=== PATIENT | female | born 1985 | race Two or more races ===

== ENCOUNTER → 2020-02-18 12:56 | Outpatient (BNVA) | payer MEDICAID, SELFPAY | PROVIDERS: PCP Emergency Medicine; Visit Provider Surgery | DX: N63.21 Unspecified lump in the left breast, upper outer quadrant (principal); N64.4 Mastodynia | CPT/HCPCS: 99213 ==

== ENCOUNTER 2020-03-15 17:01 | Outpatient (REF) | payer MEDICAID, SELFPAY | END 2020-03-15 17:02 | disposition home or self-care (01) | LOC: HO.LAB 17:01 | PROVIDERS: PCP Emergency Medicine; Visit Provider Internal Medicine | DX: Z20.828 Contact with and (suspected) exposure to other viral communicable diseases (principal) | CPT/HCPCS: U0003 ==

== ENCOUNTER 2020-04-12 14:14 | Outpatient (REF) | payer MEDICAID, SELFPAY ==
--- NOTE | 2020-04-12 14:43 | MR_ITS ---
EXAMINATION: MR FOREARM WITHOUT AND WITH CONTRAST, RIGHT CLINICAL INFORMATION: Right forearm sarcoma with resection in 2018. Distal lump/mass. COMPARISON: Right forearm MRI dated 08/21/2018. TECHNIQUE: MRI of the right upper extremity/forearm was performed using routine sequences on a high-field scanner before and after the administration of 10 mL Gadavist IV contrast. FINDINGS: BONE: No abnormal marrow signal. No postcontrast marrow enhancement. MUSCLES/TENDONS: The visualized flexor and extensor tendons are intact. SOFT TISSUES: In the region of the previously seen postsurgical change, there is linear subcutaneous low T1/T2 signal, which appears similar to the prior examination and likely represents post surgical scarring. Focal poor fat saturation is seen more proximally. Distally in the region of the overlying skin markers, there is no significant soft tissue mass or fluid collection. No significant postcontrast enhancement. MR/MR forearm RT wo/w con IMPRESSION: Postsurgical changes redemonstrated within the ventral surface of the forearm, similar when compared to the prior examination. No new abnormal soft tissue mass, fluid collection, or enhancement.
[2020-04-12 15:07] LABS: Blood Urea Nitrogen 9 mg/dL (9-16); Estimated Glomerular Filt Rate > 60
== END 2020-04-12 14:15 | disposition home or self-care (01) ==
LOC: HO.MRI 14:14
PROVIDERS: Visit Provider Surgery
DX: C49.9 Malignant neoplasm of connective and soft tissue, unspecified (principal); C49.11 Malignant neoplasm of connective and soft tissue of right upper limb, including shoulder
CPT/HCPCS: 73220; 82565; 84520; A9585

== ENCOUNTER 2020-04-30 14:04 | Outpatient (REF) | payer MEDICAID, SELFPAY | END 2020-04-30 14:05 | disposition home or self-care (01) | LOC: HO.LAB 14:04 | PROVIDERS: Visit Provider Obstetrics & Gynecology | DX: N92.1 Excessive and frequent menstruation with irregular cycle (principal) | CPT/HCPCS: 58100; 81025; 88305 ==

== ENCOUNTER → 2020-05-04 10:30 | Outpatient (BNVA) | payer MEDICAID, SELFPAY | PROVIDERS: Visit Provider Nurse Practitioner | DX: Z76.89 Persons encountering health services in other specified circumstances (principal) ==

== ENCOUNTER 2020-05-12 10:50 | Outpatient (REF) | payer MEDICAID, SELFPAY ==
[2020-05-12 12:18] LABS: CDIFF Ag Negative (Negative); CDIFF Internal ctrl Dots and bkg OK (V); CDiff Toxin Negative (Negative)
== END 2020-05-12 10:51 | disposition home or self-care (01) ==
LOC: HO.LNP 10:50
PROVIDERS: Visit Provider Nurse Practitioner
DX: K58.2 Mixed irritable bowel syndrome (principal); R19.7 Diarrhea, unspecified
CPT/HCPCS: 87045; 87046; 87324; 87449

== ENCOUNTER → 2020-05-19 15:40 | Outpatient (BNVA) | payer MEDICAID, SELFPAY | PROVIDERS: Visit Provider Obstetrics & Gynecology | DX: Z76.89 Persons encountering health services in other specified circumstances (principal) ==

== ENCOUNTER → 2020-06-16 13:44 | Outpatient (BNVA) | payer MEDICAID, SELFPAY | PROVIDERS: Visit Provider Surgery | DX: C49.9 Malignant neoplasm of connective and soft tissue, unspecified (principal) | CPT/HCPCS: 99212 ==

== ENCOUNTER 2020-08-19 09:16 | Outpatient (REF) | payer MEDICAID, SELFPAY ==
[2020-08-19 10:02] LABS: COVID-19 Test Negative (Negative)
== END 2020-08-19 09:17 | disposition home or self-care (01) ==
LOC: HO.LAB 09:16
PROVIDERS: Visit Provider Internal Medicine
DX: Z20.822 Contact with and (suspected) exposure to COVID-19 (principal)
CPT/HCPCS: 36415; 87635; C9803

== ENCOUNTER 2020-08-19 16:44 | Emergency (ER) | payer MEDICAID, SELFPAY ==
[2020-08-19 17:40] VITALS: BP 107/61; PULSE 73; RESP 16; TEMP 37.3; O2SAT 98; BMI 35.5
--- NOTE | 2020-08-19 18:50 | ED_ITS ---
HPI - Back Pain/Injury General Chief Complaint: Back Pain/Injury Stated Complaint: Headache/Back pain Time Seen by Provider: 08/19/20 18:03 Source: patient Mode of arrival: ambulatory History of Present Illness HPI Narrative: 35-year-old female with a past medical history of arthritis, arrhythmia, carpal tunnel, fibromyalgia, hyperlipidemia, panic attacks, scoliosis, diabetes, presented to the ED complaining of right-sided neck pain radiating to mid/upper back and down right leg since yesterday. Also reports right-sided ear pain radiating to throat. 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 Denies hearing loss/drainage, difficulty swallowing, urinary incontinence/retention, numbness/tingling, CP/SOB MD elicited complaint: back pain Related Data Home Medications Medication Instructions Recorded Confirmed ascorbate calcium (vitamin C) 500 500 mg PO BID 02/18/20 06/16/20 mg tablet atorvastatin 40 mg tablet 40 mg PO DAILY 02/18/20 06/16/20 dapagliflozin 5 mg tablet 5 mg PO QAM 02/18/20 06/16/20 hydroxyzine HCl 25 mg tablet 25 mg PO Q8H PRN tab 02/18/20 06/16/20 metformin 1,000 mg tablet 1,000 mg PO BID 02/18/20 06/16/20 paroxetine HCl 40 mg tablet 40 mg PO DAILY 02/18/20 06/16/20 Previous Rx's Medication Instructions Recorded metoprolol succinate 50 mg 50 mg PO DAILY 90 Days #90 tab 03/16/20 tablet,extended release 24 hr dicyclomine 20 mg tablet 20 mg PO QID 30 Days #120 tab 05/04/20 tranexamic acid 650 mg tablet 1,300 mg PO TID #30 tab 05/19/20 acetaminophen [Tylenol Extra 500 mg PO Q6H PRN #20 tab 08/19/20 Strength] amoxicillin-pot clavulanate 1 tab PO Q12H 7 Days #14 tab 08/19/20 [Augmentin] cyclobenzaprine 5 mg PO Q8H PRN 5 Days #14 tab 08/19/20 lidocaine [Lidoderm] 1 patch TOPICAL DAILY PRN #30 ea 08/19/20 MDD remove after 12 hours naproxen 500 mg PO BID PRN 10 Days #20 tab 08/19/20 Allergies Allergy/AdvReac Type Severity Reaction Status Date / Time No Known Allergies Allergy Verified 08/19/20 17:39 [No Known Allergies*] Review of Systems Review of Systems: Constitutional: No Fever, No Chills, No Fatigue, No Malaise ENT/Mouth: No Hearing loss, + Ear Pain, No Hoarseness, + sore throat, No Rhinorrhea, No Swallowing Difficulty Eyes: No Eye Pain, No Swelling, No Redness, No Foreign Body Cardiovascular: No Chest Pain, No SOB Respiratory: No Cough, No Sputum, No Dyspnea Gastrointestinal: No Nausea, No Vomiting, No Abdominal pain Genitourinary: No irregular bleeding, No Dysuria, No Urinary Incontinence/retention, No Urgency, No Flank Pain Musculoskeletal: +back/neck pain, No Myalgias, No Joint Swelling Skin: No Skin Lesions, No rash Neuro: No Weakness, No Numbness, No Paresthesias, No Loss of Consciousness, No Dizziness, + Headache Yes all other systems are reviewed and are negative [facility] Past Medical History Attestation statement: The following information was validated with the patient. Medical History Abnormal uterine bleeding Arthritis Cardiac arrhythmia Carpal tunnel syndrome Fibromyalgia High cholesterol Myxoinflammatory fibroblastic sarcoma (~08/2017) Panic attacks Scoliosis Type 2 diabetes mellitus Surgical History H/O excision of mass Previous section S/P repair of ventral hernia (~11/2017) Family History Family History Father History of stroke History of prostate cancer Mother History of breast cancer History of diabetes mellitus History of cardiovascular disorder Social History Social History Alcohol intake: never Smoking Status: Current every day smoker Tobacco Type: Cigarette Advance Directives: No Advance Directives Information Provided: No Physical Exam Vital Signs: Vital Signs: Last Vital Signs Temp 99.1 F 08/19/20 17:40 Pulse 73 08/19/20 17:40 Resp 16 08/19/20 17:40 BP 107/61 08/19/20 17:40 Pulse Ox 98 04/08/21 17:40 Body Mass Index 35.5 Const: General: cooperative, healthy appearing, no acute distress and well developed Orientation/consciousness: patient oriented x3 Limitations: no limitations HENMT: Head: Yes normal to inspection, Yes normocephalic and Yes atraumatic Ears: hearing grossly normal bilaterally and TM abnormal bulging on the right and erythematous on the right General nose exam: Normal external nose present Face and sinus: Yes normal facial exam Mouth: Normal oral and palatal mucosa present Throat: Yes posterior oropharynx normal, Yes uvula midline, No abnormal tonsil and No peritonsillar mass Eyes: General: appearance normal, both eyes and all related structures EOM: EOMs intact bilaterally Neck: Other: No midline cervical spinous tenderness. + bilateral trapezius muscle tenderness Neck: Yes normal visual inspection, Yes no lymphadenopathy, Yes no meningeal signs, Yes trachea midline and Yes supple Resp: Effort & Inspection: normal respiratory effort and no stridor Cardio: Rate: regular rate GI: Inspection: Yes normal to inspection Palpation (GI): Soft to palpation and nontender Back/Spine/Pelvis: Other: No midline thoracic/lumbar spinous tenderness. + right-sided thoracic MSK back tenderness to palpation Skin: Rashes: no rashes Wounds: no wounds Neuro: Other: Strength intact throughout. No saddle anesthesia General: patient oriented x3, gait normal, tone normal, moves all extremities, no meningeal signs and no focal motor deficits Gait exam (Neuro): Normal gait present Motor exam (neuro): 5/5 motor strength present throughout Extrem: General: Yes normal to inspection MDM - Back Pain/Injury MDM Narrative Medical decision making narrative: On exam low-grade time 9.1, NAD/nontoxic, no midline spinous tenderness, no red flag symptoms, no saddle anesthesia. Physical exam consistent with right otitis media. Likely MSK back pain. Low concern for cauda equina/cord compression, fracture Plan: Given 1st dose of Augmentin in the ED, Naproxen/Flexeril Differential Diagnosis Differential diagnosis: Likely lumbar radiculopathy Discharge Plan Discharge Clinical Impression: Otitis media Qualifiers: Otitis media type: unspecified Chronicity: acute Qualified Code(s): H66.90 - Otitis media, unspecified, unspecified ear Back pain Qualifiers: Back pain location: thoracic back pain Chronicity: acute Back pain laterality: right Qualified Code(s): M54.6 - Pain in thoracic spine Patient Disposition: Home, Self-Care Instructions: Ear Infection (ED), Back Pain (ED) Additional Instructions: You have an inner ear infection, Augmentin is an antibiotic, take as prescribed Your back pain pain is likely musculoskeletal Flexeril is a muscle relaxer, take at night as it makes you drowsy, do not drive, drink alcohol, or operate machinery while taking it Naproxen as an anti-inflammatory / pain medication, take with food Lidoderm patches are numbing patches, apply to painful area In addition take Tylenol at home If symptoms persist or worsen, pain becomes unbearable, you developed urinary retention or incontinence, or weakness return to the ED It is important your follow up with her primary care doctor Tiene rush infecci?n del o?do interno, Augmentin es un antibi?katerin, t?chandra seg?n lo prescrito. Es probable que lorenzo dolor de espalda sea musculoesquel?katerin. Flexeril es un relajante muscular, t?chandra por la noche ya que le produce somnolencia, no conduzca, no charis alcohol ni utilice maquinaria mientras lo dolly. Naproxeno mariama medicamento antiinflamatorio / analg?sico, shama con alimentos. Los parches de Lidoderm son parches que adormecen, se aplican al ?gomez dolorida Adem?s, tome Tylenol en casa. Si los s?ntomas persisten o empeoran, el dolor se vuelve insoportable, desarroll? retenci?n urinaria o incontinencia o debilidad, regrese al servicio de urgencias Es importante lorenzo seguimiento con lorenzo m?dico de atenci?n primaria. Prescriptions: New acetaminophen [Tylenol Extra Strength] 500 mg tablet 500 mg PO Q6H PRN (Reason: pain or fever) Qty: 20 RF: 0 lidocaine [Lidoderm] 5 % adhesive patch,medicated 1 patch topical DAILY MDD remove after 12 hours PRN (Reason: pain) Qty: 30 RF : 0 naproxen 500 mg tablet 500 mg PO BID PRN (Reason: pain) 10 Days Qty: 20 RF: 0 amoxicillin-pot clavulanate [Augmentin] 875-125 mg tablet 1 tab PO Q12H 7 Days Qty: 14 RF: 0 cyclobenzaprine 5 mg tablet 5 mg PO Q8H PRN (Reason: pain (scale score 7-10)) 5 Days Qty: 14 RF: 0 No Action metoprolol succinate 50 mg tablet extended release 24 hr 50 mg PO DAILY 90 Days Qty: 90 RF: 1 dicyclomine 20 mg tablet 20 mg PO QID 30 Days Qty: 120 RF: 1 tranexamic acid [Lysteda] 650 mg tablet 1,300 mg PO TID Qty: 30 RF: 2 atorvastatin 40 mg tablet 40 mg PO DAILY RF: 0 ascorbate calcium (vitamin C) 500 mg tablet 500 mg PO BID RF: 0 paroxetine HCl [Paxil] 40 mg tablet 40 mg PO DAILY RF: 0 metformin 1,000 mg tablet 1,000 mg PO BID RF: 0 hydroxyzine HCl 25 mg tablet 25 mg PO Q8H PRN (Reason: Anxiety) RF: 0 Farxiga 5 mg tablet 5 mg PO QAM RF: 0 Referrals: [facility] [Primary Care Provider] - 2 days Print Language: Malay
[2020-08-19] MEDS: Amoxicillin/Potassium Clav 875 MG TABLET PO (19:36)
[2020-08-19] MEDS: NaPROXEN 500 MG TABLET PO (19:36)
[2020-08-19] MEDS: Cyclobenzaprine HCl 5 MG TABLET PO (19:37)
== END 2020-08-19 19:47 | disposition home or self-care (01) ==
PROVIDERS: Emergency Provider Emergency Medicine
DX: H66.91 Otitis media, unspecified, right ear (principal); M54.6 Pain in thoracic spine; R51.9 Headache, unspecified; R50.9 Fever, unspecified; E11.9 Type 2 diabetes mellitus without complications; E78.5 Hyperlipidemia, unspecified; F17.210 Nicotine dependence, cigarettes, uncomplicated; Z79.02 Long term (current) use of antithrombotics/antiplatelets; Z79.84 Long term (current) use of oral hypoglycemic drugs
CPT/HCPCS: 99283

== ENCOUNTER → 2020-09-20 10:10 | Outpatient (BNVA) | payer MEDICAID, SELFPAY | PROVIDERS: PCP Nurse Practitioner Family; Visit Provider Nurse Practitioner Family | DX: R00.2 Palpitations (principal); I49.3 Ventricular premature depolarization; E78.00 Pure hypercholesterolemia, unspecified; Z79.899 Other long term (current) drug therapy | CPT/HCPCS: 93005; 99212 ==

== ENCOUNTER → 2020-09-27 10:00 | Outpatient (BNVA) | payer MEDICAID, SELFPAY | PROVIDERS: Visit Provider Obstetrics & Gynecology | DX: N92.0 Excessive and frequent menstruation with regular cycle (principal) | CPT/HCPCS: 99212 ==

== ENCOUNTER → 2020-12-28 11:13 | Outpatient (BNVA) | payer MEDICAID, SELFPAY | PROVIDERS: Visit Provider Obstetrics & Gynecology ==

== ENCOUNTER 2021-01-21 12:10 | Outpatient (REF) | payer MEDICAID, SELFPAY ==
--- NOTE | ~2021-01-21 | US_ITS ---
EXAMINATION: US VENOUS WITH DOPPLER UPPER EXTREMITY, CLINICAL INFORMATION: Left arm pain and swelling COMPARISON: None TECHNIQUE: Ultrasound of the upper extremity is performed using compression sonography and color and pulse Doppler flow with assessment of augmentation of flow. There is also imaging and Doppler assessment of the jugular and subclavian veins. Spectral analysis with color-flow imaging is performed. FINDINGS: Respiratory variation, normal compression, and augmented flow are noted throughout the upper extremity including the axillary, brachial, cubital, and radial and ulnar veins. There is normal flow in the internal jugular and subclavian veins. There is no visible deep or superficial thrombophlebitis. If the patient's symptoms progress, a followup ultrasound in 5 -7 days might be of value to exclude proximal propagation from a nonvisualized distal arm vein. US/US venous duplex UE LT IMPRESSION: No DVT demonstrated in the left upper extremity
== END 2021-01-21 12:11 | disposition home or self-care (01) ==
LOC: HO.US 12:10
PROVIDERS: PCP Nurse Practitioner Primary Care; Visit Provider Emergency Medicine
DX: R60.0 Localized edema (principal); M79.89 Other specified soft tissue disorders
CPT/HCPCS: 93971

== ENCOUNTER 2021-02-04 14:47 | Outpatient (REF) | payer MEDICAID, SELFPAY ==
[2021-02-04 14:37] LABS: Blood Urea Nitrogen 10 mg/dL (9-16); Estimated Glomerular Filt Rate > 60
== END 2021-02-04 14:48 | disposition home or self-care (01) ==
LOC: HO.MRI 14:47
PROVIDERS: PCP Nurse Practitioner Primary Care; Visit Provider Nurse Practitioner Primary Care
DX: C49.11 Malignant neoplasm of connective and soft tissue of right upper limb, including shoulder (principal); M79.601 Pain in right arm
CPT/HCPCS: 36415; 82565; 84520

== ENCOUNTER 2021-03-01 08:47 | Outpatient (REF) | payer MEDICAID, SELFPAY ==
--- NOTE | ~2021-03-01 | MR_ITS ---
EXAMINATION: MR FOREARM WITHOUT AND WITH CONTRAST, RIGHT CLINICAL INFORMATION: Sarcoma with multiple priors 6 lesions. Recurrence. Evaluate for pain at mass site. COMPARISON: Multiple priors, most recent right arm MRI dated 04/12/2020. TECHNIQUE: MRI of the right forearm was performed using routine sequences following the IV administration of 10 mL Gadavist contrast on a high-field scanner. FINDINGS: BONE: Redemonstration of increased T2 signal within the proximal radius, unchanged when compared to the prior examination. No new abnormal marrow signal or acute osseous abnormality. MUSCLES/TENDONS: The visualized flexor and extensor muscles and tendons are intact. SOFT TISSUES: Linear low T1/T2 signal within the subcutaneous tissues of the forearm, unchanged when compared to the prior examination, consistent with postsurgical change. No new soft tissue mass, fluid collection, abnormal signal, or enhancement in this region. No evidence of local disease recurrence. MR/MR forearm RT wo/w con IMPRESSION: Postsurgical changes redemonstrated at the ventral forearm, similar when compared to the prior examination. No new soft tissue mass or enhancement.
== END 2021-03-01 08:48 | disposition home or self-care (01) ==
LOC: HO.MRI 08:47
PROVIDERS: PCP Nurse Practitioner Primary Care; Visit Provider Nurse Practitioner Primary Care
DX: C49.11 Malignant neoplasm of connective and soft tissue of right upper limb, including shoulder (principal); M79.601 Pain in right arm
CPT/HCPCS: 73220; A9585

== ENCOUNTER 2021-04-01 11:05 | Outpatient (REF) | payer MEDICAID, SELFPAY ==
[2021-04-03 14:08] LABS: CT PCR NOT DETECTED (Not Detect.); NG PCR NOT DETECTED (Not Detect.)
[2021-04-03 14:51] LABS: BV Int Neg Control Negative (Negative); BV Int Pos Control Positive (Positive)
== END 2021-04-01 11:06 | disposition home or self-care (01) ==
LOC: HO.LAB 11:05
PROVIDERS: PCP Nurse Practitioner Primary Care; Visit Provider Advanced Practice Midwife
DX: Z01.419 Encounter for gynecological examination (general) (routine) without abnormal findings (principal); B37.3 Candidiasis of vulva and vagina; E11.9 Type 2 diabetes mellitus without complications; Z20.2 Contact with and (suspected) exposure to infections with a predominantly sexual mode of transmission; Z98.51 Tubal ligation status; Z79.899 Other long term (current) drug therapy
CPT/HCPCS: 87480; 87491; 87510; 87591; 87660; 99212

== ENCOUNTER 2021-04-06 10:27 | Outpatient (REF) | payer MEDICAID, SELFPAY ==
[2021-04-06 15:46] LABS: CT PCR NOT DETECTED (Not Detect.)
[2021-04-06 15:47] LABS: NG PCR NOT DETECTED (Not Detect.)
== END 2021-04-06 10:28 | disposition home or self-care (01) ==
LOC: HO.LAB 10:27
PROVIDERS: PCP Nurse Practitioner Primary Care; Visit Provider Obstetrics & Gynecology
DX: Z01.419 Encounter for gynecological examination (general) (routine) without abnormal findings (principal); N92.0 Excessive and frequent menstruation with regular cycle; N93.9 Abnormal uterine and vaginal bleeding, unspecified
CPT/HCPCS: 87491; 87591

== ENCOUNTER 2021-04-14 12:27 | Outpatient (REF) | payer MEDICAID, SELFPAY | END 2021-04-14 12:28 | disposition home or self-care (01) | LOC: HO.LAB 12:27 | PROVIDERS: PCP Nurse Practitioner Primary Care; Visit Provider Obstetrics & Gynecology | DX: N92.0 Excessive and frequent menstruation with regular cycle (principal) | CPT/HCPCS: 58100; 88305 ==

== ENCOUNTER 2021-04-18 19:08 | Emergency (ER) | payer MEDICAID, SELFPAY ==
[2021-04-18 20:17] VITALS: BP 132/72; PULSE 85; RESP 18; TEMP 37.3; O2SAT 98; BMI 34.2
--- NOTE | 2021-04-18 21:21 | ECG_ITS ---
Test Reason : DYZZY Blood Pressure : / mmHG Vent. Rate : 071 BPM Atrial Rate : 071 BPM P-R Int : 158 ms QRS Dur : 092 ms QT Int : 408 ms P-R-T Axes : 051 008 017 degrees QTc Int : 443 ms Normal sinus rhythm Moderate voltage criteria for LVH, may be normal variant ( R in aVL , Anton product ) Borderline ECG No previous ECGs available Referred By: Leon Ham Electronically Signed By:Ovi Etienne
[2021-04-18 21:31] VITALS: BP 113/64; PULSE 77; RESP 16; TEMP 36.2; O2SAT 98
[2021-04-18 22:00] LABS: MANUAL DIFF FLAG NO
[2021-04-18 22:03] LABS: Basophils Absolute Auto 0.1 X10*3/uL (0.0-0.2); Basophils Percent Auto 0.7 % (0-2); Eosinophils Absolute Auto 0.3 X10*3/uL (0.0-0.4); Hematocrit 35.2 % (37.0-47.0); Hemoglobin 10.9 g/dl (12.0-16.0); Imm Gran Abs Auto 0.02 X10*3/uL (0.00-0.03); Imm Gran Pct Auto 0.2 % (0.0-0.4); Lymphocytes Absolute Auto 4.7 X10*3/uL (1.2-4.9); Lymphocytes Percent Auto 44.4 % (20-40); Mean Corpuscular Hemoglobin 24.5 pg (27.0-33.0); Mean Corpuscular Volume 79.3 fL (80.0-98.0); Mean Platelet Volume 10.1 fL (9.4-12.3); Monocytes Absolute Auto 0.6 X10*3/uL (0.1-1.2); Neutrophils Absolute Auto 4.8 x10*3/uL (2.0-8.3); Neutrophils Percent Auto 45.7 % (45-73); Platelet Count 434 X10*3/uL (160-400); Red Blood Count 4.44 X10*6/uL (4.20-5.50); Red Cell Distribution Width 15.3 % (11.0-16.0); White Blood Count 10.6 X10*3/uL (4.8-10.8)
[2021-04-18 22:14] LABS: Anion Gap 14 (12-20); Blood Urea Nitrogen 10 mg/dL (9-16); Carbon Dioxide 25 mmol/L (22-29); Chloride 105 mmol/L (96-108); Estimated Glomerular Filt Rate > 60; Glucose Random 120 mg/dL (60-115); Potassium 4.2 mmol/L (3.3-5.1); Sodium 140 mmol/L (135-145)
[2021-04-18 22:16] LABS: UPreg QC Valid YES; Urine Pregnancy NEGATIVE (NEGATIVE)
[2021-04-18] MEDS: Meclizine HCl 25 MG TABLET PO (22:27)
[2021-04-18 23:23] VITALS: BP 104/66; PULSE 66; RESP 18; TEMP 37.1; O2SAT 100
[2021-04-18] MEDS: LORazepam 0.5 MG TABLET PO (23:28)
--- NOTE | 2021-04-18 23:51 | ED.GENADULT ---
HPI - General Adult General Chief complaint: Neck Pain/Injury Stated complaint: Neck pressure/Dizziness Time Seen by Provider: 04/18/21 20:52 History of Present Illness HPI narrative: Patient complains of dizziness described as a feeling of the room spinning and moving when she tries to stand up and walk, there is no headache no feeling faint no chest pain no shortness of breath no palpitations She also complains of some pain in her lower neck and upper back worse with movement Related Data Home Medications Medication Instructions Recorded Confirmed ascorbate calcium (vitamin C) 500 500 mg PO BID 02/18/20 04/04/21 mg tablet dapagliflozin 5 mg tablet (Farxiga) 5 mg PO QAM 02/18/20 04/04/21 hydroxyzine HCl 25 mg tablet 25 mg PO Q8H PRN tab 02/18/20 04/04/21 metformin 1,000 mg tablet 1,000 mg PO BID 02/18/20 04/04/21 paroxetine HCl 40 mg tablet (Paxil) 40 mg PO DAILY 02/18/20 04/04/21 atorvastatin 40 mg tablet 80 mg PO DAILY tab 09/27/20 04/04/21 losartan 25 mg tablet 25 mg PO DAILY 09/27/20 04/04/21 tranexamic acid 650 mg tablet 650 mg PO BID 09/27/20 04/04/21 (Lysteda) Previous Rx's Medication Instructions Recorded dicyclomine 20 mg tablet 20 mg PO QID 30 Days #120 tab 05/04/20 acetaminophen 500 mg tablet 500 mg PO Q6H PRN #20 tab 08/19/20 (Tylenol Extra Strength) cyclobenzaprine 5 mg tablet 5 mg PO Q8H PRN 5 Days #14 tab 08/19/20 naproxen 500 mg tablet 500 mg PO BID PRN 10 Days #20 tab 08/19/20 medroxyprogesterone 10 mg tablet 10 mg PO DAILY 10 Days #30 tab 09/27/20 (Provera) clotrimazole 1 % vaginal cream 1 appful VAGINAL BEDTIME #45 g 04/01/21 metoprolol succinate 50 mg 75 mg PO DAILY 90 Days #135 tab 04/01/21 tablet,extended release 24 hr medroxyprogesterone 10 mg tablet 10 mg PO DAILY 60 Days #60 tab 04/06/21 (Provera) metronidazole 500 mg tablet 500 mg PO BID 7 Days #14 tab 04/12/21 ibuprofen 600 mg tablet 600 mg PO Q6H PRN #14 tab 04/18/21 lorazepam 0.5 mg tablet (Ativan) 0.5 mg PO TID PRN #7 tab 04/18/21 meclizine 25 mg tablet 25 mg PO TID PRN #10 tab 04/18/21 Allergies Allergy/AdvReac Type Severity Reaction Status Date / Time No Known Allergies Allergy Verified 04/14/21 12:47 [No Known Allergies*] Review of Systems Review of Systems: Positive for dizziness with a sense of the room spinning and upper back pain and lower neck pain Negatives are no fever no chills no fainting no feeling faint no headache no stiff neck no chest pain no shortness of breath no palpitations no abdominal pain no nausea or vomiting no diarrhea no loss of appetite no dysuria no confusion no skin rash Yes all other systems are reviewed and are negative PMFSH Past Medical History Source: nursing notes reviewed Medical History Abnormal uterine bleeding Arthritis Cardiac arrhythmia Carpal tunnel syndrome Fibromyalgia High cholesterol Panic attacks PVC (premature ventricular contraction) Scoliosis Type 2 diabetes mellitus Surgical History H/O excision of mass Myxoinflammatory fibroblastic sarcoma (~08/2017) Previous section S/P repair of ventral hernia (~11/2017) Tubal ligation status Family History Family History Father History of stroke History of prostate cancer Mother History of breast cancer History of diabetes mellitus History of cardiovascular disorder Social History Social History (Updated 04/14/21 @ 12:49 by Patricia Chandra CMA) Alcohol intake: former Patient Tobacco Use Status: Current everyday Tobacco user Cigarettes Per Day: 10 Years Smoked: 15 Advance Directives: No Patient : No Physical Exam Vital Signs: Vital Signs: Last Vital Signs Temp 98.8 F 04/18/21 23:23 Pulse 66 04/18/21 23:23 Resp 18 04/18/21 23:23 BP 104/66 04/18/21 23:23 Pulse Ox 100 04/18/21 23:23 BMI result Body Mass Index 34.2 General appearance is comfortable cooperative in no acute distress Head is normocephalic atraumatic The ears both ears have normal tympanic membranes with no redness, light reflex is normal in both ears, ear canals are both normal Pupils are equal round reactive to light, extraocular motions are intact there is no nystagmus The neck is supple with full range of motion The chest is clear to auscultation bilateral with symmetrical breath sounds Heart no murmur auscultated Abdomen soft nontender Extremities full range of motion x4 Neuro the gait is unsteady Speech is normal, comprehension and expression are normal Cerebellar exam she can do finger to nose easily Motor is 5/5 x4, sensation is intact and symmetrical There is no facial asymmetry Course Course Course Narrative: EKG was a normal sinus rhythm with a rate of 71, no acute ST changes no acute ischemic changes, QT was normal, intervals were normal A mild anemia was noted on her lab work which is similar to the last 1 done 2 weeks ago which was 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 by 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 for menorrhagia, she has been started on medication to control the vaginal bleeding and there is no acute change in her hemoglobin and hematocrit from 2 weeks ago test was negative electrolytes were within normal limits Patient was treated initially with meclizine 25 mg with minimal improvement and then after half an hour we gave 0.5 mg of Ativan after this she was able to walk with a steady gait and significantly improved She was discharged with the advice to follow with primary care doctor and given short course of both meclizine and Ativan Medical Decision Making Lab Data Lab results reviewed: Yes I reviewed the patient's lab results. Result diagrams: 04/18/21 21:46 04/18/21 21:46 Labs: Lab Results 04/18/21 04/18/21 04/18/21 Range/Units 21:46 21:46 22:06 WBC 10.6 (4.8-10.8) X10*3/uL RBC 4.44 (4.20-5.50) X10*6/uL Hgb 10.9 L (12.0-16.0) g/dl Hct 35.2 L (37.0-47.0) % MCV 79.3 L (80.0-98.0) fL MCH 24.5 L (27.0-33.0) pg MCHC 31.0 (31.0-35.0) g/dl RDW 15.3 (11.0-16.0) % Plt Count 434 H (160-400) X10*3/uL MPV 10.1 (9.4-12.3) fL Immature Gran % (Auto) 0.2 (0.0-0.4) % Neut % (Auto) 45.7 (45-73) % Lymph % (Auto) 44.4 H (20-40) % [place] % (Auto) 6.0 (2-11) % Eos % (Auto) 3.0 (0-4) % Baso % (Auto) 0.7 (0-2) % Lymph # (Auto) 4.7 (1.2-4.9) X10*3/uL [place] # (Auto) 0.6 (0.1-1.2) X10*3/uL Eos # (Auto) 0.3 (0.0-0.4) X10*3/uL Baso # (Auto) 0.1 (0.0-0.2) X10*3/uL Abs Immat Gran (auto) 0.02 (0.00-0.03) X10*3/uL Absolute Neuts (auto) 4.8 (2.0-8.3) x10*3/uL Absolute Nucleated RBC 0.000 (0.0-0.012) X10*3/uL Nucleated RBC % (auto) 0.0 (0.0-0.2) /100WBC Sodium 140 (135-145) mmol/L Potassium 4.2 (3.3-5.1) mmol/L Chloride 105 (96-108) mmol/L Carbon Dioxide 25 (22-29) mmol/L Anion Gap 14 (12-20) BUN 10 (9-16) mg/dL Creatinine 0.74 (0.5-1.4) mg/dL Estim Creat Clear Calc 126.0 Estimated GFR > 60 Random Glucose 120 H (60-115) mg/dL Calcium 10.0 (8.4-10.2) mg/dL Urine Test NEGATIVE (NEGATIVE) Discharge Plan Discharge Clinical Impression: Vertigo Patient Disposition: Home, Self-Care Additional Instructions: We believe you had vertigo which is loss of balance with a feeling of movement Medications seem to help but medications can only be used for a short amount of time Try the meclizine 1st and if half an hour later it has not worked you could try 0.5 mg of Ativan Follow with primary care doctor Return any time for any worse condition, or if vertigo returns and treatments are not working Prescriptions: New ibuprofen 600 mg tablet 600 mg PO Q6H PRN (Reason: pain) Qty: 14 RF: 0 meclizine 25 mg tablet 25 mg PO TID PRN (Reason: dizziness) Qty: 10 RF: 0 lorazepam [Ativan] 0.5 mg tablet 0.5 mg PO TID PRN (Reason: dizziness or vertigo) Qty: 7 RF: 0 No Action metoprolol succinate 50 mg tablet extended release 24 hr 75 mg PO DAILY 90 Days Qty: 135 RF: 1 metronidazole 500 mg tablet 500 mg PO BID 7 Days Qty: 14 RF: 0 acetaminophen [Tylenol Extra Strength] 500 mg tablet 500 mg PO Q6H PRN (Reason: pain or fever) Qty: 20 RF: 0 naproxen 500 mg tablet 500 mg PO BID PRN (Reason: pain) 10 Days Qty: 20 RF: 0 cyclobenzaprine 5 mg tablet 5 mg PO Q8H PRN (Reason: pain (scale score 7-10)) 5 Days Qty: 14 RF: 0 dicyclomine 20 mg tablet 20 mg PO QID 30 Days Qty: 120 RF: 1 losartan 25 mg tablet 25 mg PO DAILY RF: 0 tranexamic acid [Lysteda] 650 mg tablet 650 mg PO BID RF: 0 medroxyprogesterone [Provera] 10 mg tablet 10 mg PO DAILY 10 Days Qty: 30 RF: 3 ascorbate calcium (vitamin C) 500 mg tablet 500 mg PO BID RF: 0 paroxetine HCl [Paxil] 40 mg tablet 40 mg PO DAILY RF: 0 metformin 1,000 mg tablet 1,000 mg PO BID RF: 0 hydroxyzine HCl 25 mg tablet 25 mg PO Q8H PRN (Reason: Anxiety) RF: 0 Farxiga 5 mg tablet 5 mg PO QAM RF: 0 atorvastatin 40 mg tablet 80 mg PO DAILY RF: 0 medroxyprogesterone [Provera] 10 mg tablet 10 mg PO DAILY 60 Days Qty: 60 RF: 0 clotrimazole 1 % cream 1 appful vaginal BEDTIME Qty: 45 RF: 3
[2021-04-19] MEDS: Ibuprofen 600 MG TABLET PO (00:03)
== END 2021-04-19 00:07 | disposition home or self-care (01) ==
PROVIDERS: Physician Assistant Medical; Emergency Provider Emergency Medicine Emergency Medical Services; PCP Nurse Practitioner Primary Care
DX: R42 Dizziness and giddiness (principal); M54.6 Pain in thoracic spine; M54.2 Cervicalgia; E11.9 Type 2 diabetes mellitus without complications; E78.5 Hyperlipidemia, unspecified; F17.200 Nicotine dependence, unspecified, uncomplicated; Z79.02 Long term (current) use of antithrombotics/antiplatelets
CPT/HCPCS: 36415; 80048; 81025; 85025; 93005; 99284

== ENCOUNTER → 2021-04-22 13:34 | Outpatient (BNVA) | payer MEDICAID, SELFPAY | PROVIDERS: PCP Nurse Practitioner Primary Care; Visit Provider Nurse Practitioner Family | DX: I49.3 Ventricular premature depolarization (principal); R00.2 Palpitations | CPT/HCPCS: 93005; 99212 ==

== ENCOUNTER 2021-04-27 12:53 | Outpatient (REF) | payer MEDICAID, SELFPAY ==
--- NOTE | ~2021-04-27 | US_ITS ---
EXAMINATION: US PELVIS-TRANSABDOMINAL AND TRANSVAGINAL CLINICAL INFORMATION: Abnormal vaginal bleeding COMPARISON: Ultrasound of 02/19/2018 TECHNIQUE: Ultrasound of the pelvis is performed using both transabdominal and transvaginal transducers along with Doppler. Transvaginal imaging is performed due to inadequate visualization transabdominally. FINDINGS: Uterus: The anteverted uterus is normal in size and echotexture and measures 9.1 x 5.5 x 7.0 cm with an endometrial thickness of 10 mm. There is a small, 12 mm fundal fibroid. Adnexa: Right ovary measures 5.3 x 2.7 x 3.0 cm, a volume of 22.5 mL, and contains a few small follicles. Left ovary measures 3.7 x 2.0 x 2.8 cm, a volume of 10.9 mL, and contains small follicles. No free fluid is evident in the cul-de-sac. US/US pelvic and transvaginal IMPRESSION: Unremarkable transvesical and endovaginal pelvic ultrasound.
== END 2021-04-27 12:54 | disposition home or self-care (01) ==
LOC: HO.US 12:53
PROVIDERS: PCP Nurse Practitioner Primary Care; Visit Provider Obstetrics & Gynecology
DX: N93.9 Abnormal uterine and vaginal bleeding, unspecified (principal)
CPT/HCPCS: 76830; 76856

== ENCOUNTER 2021-04-29 07:56 | Outpatient (REF) | payer MEDICAID, SELFPAY ==
[2021-04-29 11:01] LABS: Glucose, Whole Blood 91 mg/dL (60-115)
== END 2021-04-29 07:57 | disposition home or self-care (01) ==
LOC: HO.MDS 07:56
PROVIDERS: PCP Nurse Practitioner Primary Care; Visit Provider Internal Medicine
DX: D50.9 Iron deficiency anemia, unspecified (principal)
CPT/HCPCS: 82947; 96365; J1200; J1750; Q0163

== ENCOUNTER → 2021-05-04 15:41 | Outpatient (BNVA) | payer MEDICAID, SELFPAY | PROVIDERS: PCP Nurse Practitioner Primary Care; Visit Provider Obstetrics & Gynecology ==

== ENCOUNTER → 2021-05-05 11:15 | Outpatient (BNVA) | payer MEDICAID, SELFPAY | PROVIDERS: PCP Nurse Practitioner Primary Care; Referring Provider Nurse Practitioner Primary Care; Visit Provider Surgery | DX: L72.0 Epidermal cyst (principal); C49.9 Malignant neoplasm of connective and soft tissue, unspecified | CPT/HCPCS: 99212 ==

== ENCOUNTER 2021-05-09 10:02 | Outpatient (REF) | payer MEDICAID, SELFPAY | END 2021-05-09 10:03 | disposition home or self-care (01) | LOC: HO.MDS 10:02 | PROVIDERS: PCP Nurse Practitioner Primary Care; Visit Provider Internal Medicine Medical Oncology | DX: D50.9 Iron deficiency anemia, unspecified (principal) | CPT/HCPCS: 96365; J1439 ==

== ENCOUNTER 2021-05-12 16:09 | Outpatient (REF) | payer MEDICAID, SELFPAY ==
--- NOTE | ~2021-05-12 | US_ITS ---
EXAMINATION: US SOFT TISSUE NECK CLINICAL INFORMATION: Epididymal cyst. 3 palpable lesions posterior/midline neck. COMPARISON: Ultrasound soft tissue neck 02/04/2019. TECHNIQUE: Linear transducer grayscale and color Doppler examination of the posterior neck at hairline. FINDINGS: In the superficial soft tissues of the posterior head/neck, there are no abnormalities. There are no cystic or solid masses. There is no lymph nodes. US/US soft tiss head and/or neck IMPRESSION: Unremarkable exam.
== END 2021-05-12 16:10 | disposition home or self-care (01) ==
LOC: HO.US 16:09
PROVIDERS: PCP Nurse Practitioner Primary Care; Visit Provider Surgery
DX: C49.9 Malignant neoplasm of connective and soft tissue, unspecified (principal); L72.0 Epidermal cyst; R19.7 Diarrhea, unspecified; K58.2 Mixed irritable bowel syndrome
CPT/HCPCS: 76536

== ENCOUNTER 2021-05-17 09:26 | Outpatient (REF) | payer MEDICAID, SELFPAY | END 2021-05-17 09:27 | disposition home or self-care (01) | LOC: HO.MDS 09:26 | PROVIDERS: PCP Nurse Practitioner Primary Care; Visit Provider Internal Medicine Medical Oncology | DX: D50.9 Iron deficiency anemia, unspecified (principal) | CPT/HCPCS: 96372; J1439 ==

== ENCOUNTER 2021-05-30 09:50 | Day surgery (SDC) | payer MEDICAID, SELFPAY ==
[2021-05-24 11:31] VITALS: BMI 34.4
[2021-05-30 10:41] VITALS: BP 123/65; PULSE 77; RESP 16; TEMP 36.4; O2SAT 98
[2021-05-30 11:05] LABS: Glucose, Whole Blood 113 mg/dL (60-115)
--- NOTE | 2021-05-30 11:19 | MHC.SHP ---
Pre-Procedural Eval Section A Date of Service: 05/30/21 The patient is an INPATIENT: No The History & Physical has been completed within 30 days and I have reviewed it.: Yes Section B Chief Complaint: Screening, Epigastric Pain Relevant Family History (Specify if Yes): Yes Relevant Social History: Tobacco Use Present Medications: see Short Stay Collaborative assessment Medical History: Significant History (Abnormal uterine bleeding Arthritis Cardiac arrhythmia Carpal tunnel syndrome Fibromyalgia High cholesterol Panic attacks PVC (premature ventricular contraction) Scoliosis Type 2 diabetes mellitus) History of Previous Operations: Relevant previous surgery/procedure and date(s) (H/O excision of mass Myxoinflammatory fibroblastic sarcoma (~08/2017) Previous section S/P repair of ventral hernia (~11/2017) Tubal ligation status) Allergies: Allergies Allergy/AdvReac Type Severity Reaction Status Date / Time dextran sulfate AdvReac Unknown Verified 05/05/21 11:55 Review of Systems Sugical H&P ROS: Negative: Constitution, Cardiovascular and Respiratory and Yes, Specify: Gastrointestinal (nausea, diarrhea) Exam Surgical H&P Exam: Normal: Heart, Normal: Lungs, Normal: Extremities and Normal: Abdomen Plan Diagnosis/Plan: Unchanged I have reviewed the history and physical and performed a pertinent physical examination on my patient. No changes have occurred unless specified.
--- NOTE | 2021-05-30 11:21 | P.BOP_ITS ---
Brief Operative Note Date of Service: 05/30/21 Pre-op diagnosis: Iron deficiency anemia, nausea, diarrhea Post-op diagnosis: other (Gastritis, colon polyps, hemorrhoids) Procedure: FLEXIBLE TRANSORAL UPPER GASTROINTESTINAL ENDOSCOPY WITH BIOPSIES AND COLONOSCOPY TILL CECUM WITH BIOPSIES AND SNARE POLYPECTOMY UPPER ENDOSCOPY Consent: Indications for the procedure and potential complications of bleeding, perforation, reaction to medications and missed diagnosis were discussed with the patient and informed consent was obtained. Instrument: Olympus GIF H 190 mid size upper endoscope Monitoring: Vital signs and clinical assessment, continuous EKG monitoring, Pulse oximetry, Carbon Dioxide monitoring and blood pressure monitoring were done throughout the procedure. Procedure: The patient was placed in the left lateral decubitis position and pre-procedure medications were administered and a bite block was placed. The endoscope was inserted into the mouth and advanced under direct vision to the third part of duodenum. A careful inspection was made as the upper endoscope was withdrawn including a retroflexed examination of the proximal stomach; Findings and interventions are described below. Findings: Larynx: Normal Esophagus: GE junction at 34 cms, small hiatal hernia 34 to 36 cms. No esophagitis or Sinclair's. Stomach: Moderate diffuse gastric erythema. Biopsies were obtained. Grade 3 flap valve on retroflexed examination of the cardia. Duodenum: Normal bulb and descending duodenum. Biopsies obtained from 3rd part of the duodenum to check for celiac sprue. Intervention: Biopsies as noted above COLONOSCOPY PROCEDURE NOTE Consent: Indications for the procedure and potential complications of bleeding, perforation, reaction to medications and missed diagnosis were discussed with the patient and informed consent was obtained. Instrument: Olympus PCF H 190 L variable stiffness pediatric colonoscope Monitoring: Vital signs and clinical assessment, intermittent blood pressure monitoring, continuous EKG monitoring, Pulse oximetry and Carbon Dioxide monitoring were done throughout the procedure. Colon withdrawl time was 25 minutes. Procedure: The patient was placed in the left lateral decubitis position and pre-procedure medications were administered. After a digital rectal examination of the ano-rectum, the video colonoscope was inserted into the rectum and advanced through the colon to the cecum. The colonoscope was slowly withdrawn in a retrograde panoramic fashion and the colon mucosa was carefully examined including a retroflexed view of the rectum. Findings and interventions are described below. Procedure Difficulty: Colon was long and tortuous and there was some loop formation. Findings: Terminal Ileum: Not evaluated Cecum: A 7-8 mm sessile polyp removed with a cold snare and polyp was not retrieved. Prominent ileocecal valve which was biopsied Ascending Colon: Normal Transverse Colon: A 4-5 mm diminutive appearing polyp removed with cold biopsy Descending Colon: Normal Sigmoid Colon: Normal Rectum: Normal Ano-rectum: Moderate internal hemorrhoids and julissa-anal skin tags Colon preparation: Good after copious irrigation Impression and Post Procedure Diagnosis: Endoscopy Findings: ESOPHAGUS: GE junction at 34 cms, small hiatal hernia 34 to 36 cms. STOMACH: Gastritis DUODENUM: Normal - biopsied to check for celiac sprue Colonoscopy Findings: Two small polyps removed. Prominent ileocecal valve - biopsied Random biopsies were obtained from the colon to check for microscopic colitis Moderate hemorrhoids on retroflexed exam and julissa-anal skin tags. Plan: Await pathology results Patient has an appointment on 06/23/21 in the GI Clinic with Roddy Irvin M.D.. Repeat Colonoscopy interval based on path results - in 5 years if polyps are adenomatous and due to positive family history of colon polyps. (Adult colonoscope for future colonoscopies) Above findings were reviewed with the patient and Gastritis, colon polyps and Hemorrhoids handouts were given in the discharge area Surgeon: Roddy Irvin MD Anesthesia: MAC (Dr Price and Dr Schafer) Was an Finished Cloth Checker used for this Procedure?: No Finished Cloth Checker: Marques Kee Estimated blood loss (mL): 0 Pathology: other ( A- SMALL BOWEL BXS R/O CELIAC B- GASTRIC ANTRUM BXS R/O H. PYLORI C- ILEO CECAL VALVE R/O POLYP D- RANDOM COLON BXS R/O MICROSCOPIC COLITIS E- TRANSVERSE COLON POLYP) Condition: stable Disposition: PACU
--- NOTE | 2021-05-30 11:26 | HO.ANESPROP2 ---
[facility] Active Problems Active Problems: All Active Problems (Updated 05/24/21 @ 11:25 by Alize Callejas RN) Left breast lump (Acute) Lactose intolerance (Acute) Hemorrhoids (Acute) Mixed irritable bowel syndrome (Acute) Diarrhea (Acute) Menorrhagia (Acute) Urine incontinence (Acute) Anemia (Chronic) Palpitation (Acute) Yeast infection of the vagina (Acute) Well woman exam (Acute) Epidermal inclusion cyst (Acute) PVC (premature ventricular contraction) (Acute) Myxoinflammatory fibroblastic sarcoma (Acute ~08/2017) Past Medical History Medical History Abnormal uterine bleeding Arthritis Cardiac arrhythmia Carpal tunnel syndrome Fibromyalgia High cholesterol Panic attacks PVC (premature ventricular contraction) Scoliosis Type 2 diabetes mellitus Functional capacity: independent ambulation Patient : No Family History Family History Father History of stroke History of prostate cancer Mother History of breast cancer History of diabetes mellitus History of cardiovascular disorder Family history of problems with anesthesia: No Surgical History Surgical History H/O excision of mass H/O excision of mass Myxoinflammatory fibroblastic sarcoma (~08/2017) Previous section S/P repair of ventral hernia (~11/2017) Tubal ligation status History of Problems with Anesthesia: No Social History Social History Alcohol intake: former Patient Tobacco Use Status: Current everyday Tobacco user Tobacco use type: Cigarette Cigarettes Per Day: 10 Years Smoked: 15 Advance Directives: No Advance Directives Information Provided: Yes Advance Directives on File: No Meds Allergies Allergy/AdvReac Type Severity Reaction Status Date / Time dextran sulfate AdvReac Unknown Verified 05/05/21 11:55 Home Medications Medication Instructions Recorded Confirmed Last Taken Type ascorbate calcium (vitamin C) 500 500 mg PO BID 02/18/20 05/24/21 Unknown History mg tablet dapagliflozin 5 mg tablet (Farxiga) 5 mg PO QAM 02/18/20 05/24/21 Unknown History hydroxyzine HCl 25 mg tablet 25 mg PO Q8H PRN tab 02/18/20 05/24/21 Unknown History metformin 1,000 mg tablet 1,000 mg PO BID 02/18/20 05/24/21 Unknown History paroxetine HCl 40 mg tablet (Paxil) 40 mg PO DAILY 02/18/20 05/24/21 Unknown History atorvastatin 40 mg tablet 80 mg PO DAILY tab 09/27/20 05/24/21 Unknown History losartan 25 mg tablet 25 mg PO DAILY 09/27/20 05/24/21 Unknown History tranexamic acid 650 mg tablet 650 mg PO BID 09/27/20 05/24/21 Unknown History (Lysteda) Exam Exam Date and Time: May 30, 2021 1126 Height,Weight and Vital Signs: Height 5 ft 7 in Weight 99.6 kg Last Vital Signs Temp 97.6 F 05/30/21 10:41 Pulse 77 05/30/21 10:41 Resp 16 05/30/21 10:41 BP 123/65 05/30/21 10:41 Pulse Ox 98 05/30/21 10:41 Pertinent Lab Results Pertinent Lab Results: Laboratory Tests 05/30/21 10:59 POC Glucose 113 Airway Mallampati Class: III TM Dist: >3cm Neck ROM: Full Heart: RRR Lungs: CTA Assessment and Plan Final Anesthetic Review Family History of Problems with Anesthesia: No History of Problems with Anesthesia: No ASA Class: III Final Preanesthetic Review: No Changes in Pt Med Stat, Meds/Allgs Chart Reviewed, Consent Obtained/Reviewed and Anes Risks/Benef Reviewed Patient Risk: Intermediate Procedure Risk: Low Anesthetic Plan Anesthetic Plan: MAC: Disposition: Standard PACU
--- NOTE | 2021-05-30 11:32 | W.PM.OPN ---
Operative Note Operative Note Date of Service: 05/30/21 Narrative: Pre-op diagnosis:?Iron deficiency anemia, nausea, diarrhea Post-op diagnosis:?other (Gastritis, colon polyps, hemorrhoids) Procedure:? FLEXIBLE TRANSORAL UPPER GASTROINTESTINAL ENDOSCOPY WITH BIOPSIES AND COLONOSCOPY TILL CECUM WITH BIOPSIES AND SNARE POLYPECTOMY UPPER ENDOSCOPY Consent:?Indications for the procedure and potential complications of bleeding, perforation, reaction to medications and missed diagnosis were discussed with the patient and informed consent was obtained. Instrument:?Olympus GIF H 190 mid size upper endoscope Monitoring: Vital signs and clinical assessment, continuous EKG monitoring, Pulse oximetry, Carbon Dioxide monitoring and blood pressure monitoring were done throughout the procedure. Procedure:?The patient was placed in the left lateral decubitis position and pre-procedure medications were administered and a bite block was placed. The endoscope was inserted into the mouth and advanced under direct vision to the third part of duodenum. A careful inspection was made as the upper endoscope was withdrawn including a retroflexed examination of the proximal stomach; Findings and interventions are described below. Findings: Larynx:? Normal Esophagus:?GE junction at 34 cms, small hiatal hernia 34 to 36 cms. No esophagitis or Sinclair's. Stomach:?Moderate diffuse gastric erythema. Biopsies were obtained. Grade 3 flap valve on retroflexed examination of the cardia. Duodenum:?Normal bulb and descending duodenum.? Biopsies obtained from 3rd part of the duodenum to check for celiac sprue. Intervention:?Biopsies as noted above COLONOSCOPY PROCEDURE NOTE Consent:?Indications for the procedure and potential complications of bleeding, perforation, reaction to medications and missed diagnosis were discussed with the patient and informed consent was obtained. Instrument:?Olympus PCF H 190 L variable stiffness pediatric colonoscope Monitoring:?Vital signs and clinical assessment, intermittent blood pressure monitoring, continuous EKG monitoring, Pulse oximetry and Carbon Dioxide monitoring were done throughout the procedure. Colon withdrawl time was 25 minutes. Procedure:?The patient was placed in the left lateral decubitis position and pre-procedure medications were administered. After a digital rectal examination of the ano-rectum, the video colonoscope was inserted into the rectum and advanced through the colon to the cecum. The colonoscope was slowly withdrawn in a retrograde panoramic fashion and the colon mucosa was carefully examined including a retroflexed view of the rectum. Findings and interventions are described below. Procedure Difficulty:??Colon was long and tortuous and there was some loop formation. Findings: Terminal Ileum: Not evaluated Cecum:? A 7-8 mm sessile polyp removed with a cold snare and polyp was not retrieved. Prominent ileocecal valve which was biopsied Ascending Colon:??Normal Transverse Colon:??A 4-5 mm diminutive appearing polyp removed with cold biopsy Descending Colon:? Normal Sigmoid Colon:??Normal Rectum:??Normal Ano-rectum:??Moderate internal hemorrhoids and julissa-anal skin tags Colon preparation:? Good after copious irrigation Impression and Post Procedure Diagnosis: Endoscopy Findings: ESOPHAGUS:?GE junction at 34 cms, small hiatal hernia 34 to 36 cms. STOMACH: Gastritis DUODENUM: Normal - biopsied to check for celiac sprue Colonoscopy Findings: Two small polyps removed. Prominent ileocecal valve - biopsied Random biopsies were obtained from the colon to check for microscopic colitis Moderate hemorrhoids on retroflexed exam and julissa-anal skin tags. Plan: Await pathology results Patient has an appointment on 06/23/21 in the GI Clinic with Roddy Irvin M.D.. Repeat Colonoscopy interval based on path results - in 5 years if polyps are adenomatous and due to positive family history of colon polyps. (Adult colonoscope for future colonoscopies) Above findings were reviewed with the patient and Gastritis, colon polyps and? Hemorrhoids handouts were given in the discharge area Surgeon:?Roddy Irvin MD Anesthesia:?MAC (Dr Price and Dr Schafer) Was an Designer/Writer used for this Procedure?:?No Designer/Writer:?Marques Kee Estimated blood loss (mL):?0 Pathology:?other ( A- SMALL BOWEL BXS? R/O CELIAC? B- GASTRIC ANTRUM BXS? R/O H. PYLORI? C- ILEO CECAL VALVE? R/O POLYP? D- RANDOM COLON BXS? R/O MICROSCOPIC COLITIS? E- TRANSVERSE COLON POLYP) Condition:?stable Disposition:?PACU
[2021-05-30 12:31] VITALS: BP 105/64; PULSE 89; RESP 16; TEMP 37.2; O2SAT 96
[2021-05-30 12:46] VITALS: BP 119/89; PULSE 74; RESP 18; O2SAT 96
[2021-05-30 13:01] VITALS: BP 125/89; PULSE 68; RESP 18; TEMP 36.8; O2SAT 97
--- NOTE | 2021-05-30 13:13 | HO.POSTANES ---
Post Anesthesia Evaluation Post Anesthesia Evaluation Vital Signs: Vital Signs Temp Pulse Resp BP Pulse Ox 05/30/21 12:31 98.9 F 89 16 105/64 96 05/30/21 10:41 97.6 F 77 16 123/65 98 Anesthesia: Monitored Mental Status: Awake Pain Control: Satisfactory Nausea/Vomiting: None Hydration: Adequate Anesthesia-Related Issues: No Anes. Related Issues
== END 2021-05-30 13:42 | disposition home or self-care (01) ==
PROVIDERS: PCP Nurse Practitioner Primary Care; Visit Provider Internal Medicine Gastroenterology
PROC: (CPT 45385; principal; 2021-05-30 12:00)
DX: D50.9 Iron deficiency anemia, unspecified (principal); N92.0 Excessive and frequent menstruation with regular cycle; Z83.71 Family history of colonic polyps; K63.5 Polyp of colon; K64.8 Other hemorrhoids; K64.4 Residual hemorrhoidal skin tags; R10.13 Epigastric pain; E73.9 Lactose intolerance, unspecified; K29.50 Unspecified chronic gastritis without bleeding; K21.9 Gastro-esophageal reflux disease without esophagitis; K44.9 Diaphragmatic hernia without obstruction or gangrene; G47.33 Obstructive sleep apnea (adult) (pediatric); R53.82 Chronic fatigue, unspecified; M79.7 Fibromyalgia; E78.00 Pure hypercholesterolemia, unspecified; E11.9 Type 2 diabetes mellitus without complications; Z79.84 Long term (current) use of oral hypoglycemic drugs; Z79.899 Other long term (current) drug therapy; Z88.8 Allergy status to other drugs, medicaments and biological substances; Z98.51 Tubal ligation status; F17.210 Nicotine dependence, cigarettes, uncomplicated
CPT/HCPCS: 45385; 45380; 43239; 82947; 88305; 88342; J2405

== ENCOUNTER → 2021-06-23 08:41 | Outpatient (BNVA) | payer MEDICAID, SELFPAY | PROVIDERS: PCP Nurse Practitioner Primary Care; Referring Provider Nurse Practitioner Primary Care; Visit Provider Internal Medicine Gastroenterology | DX: D50.9 Iron deficiency anemia, unspecified (principal); K58.2 Mixed irritable bowel syndrome; K64.9 Unspecified hemorrhoids; R19.7 Diarrhea, unspecified; R10.9 Unspecified abdominal pain | CPT/HCPCS: 99212 ==

== ENCOUNTER 2021-07-14 09:21 | Outpatient (REF) | payer MEDICAID, SELFPAY ==
--- NOTE | ~2021-07-14 | XR_ITS ---
EXAMINATION: XR thoracic spine 2V, XR cervical spine min 6V CLINICAL INFORMATION: Reason for Exam LUMBAGO WITH SCIATICA COMPARISON: MRI cervical spine dated 07/17/2018 TECHNIQUE: 3 views of the thoracic spine and 5 views of the cervical spine FINDINGS: No acute fracture or traumatic malalignment. Vertebral body heights maintained. Oblique views demonstrate osseous neural foraminal encroachment within the cervical spine. No significant degenerative changes evident. Paraspinal soft tissues unremarkable. XR/XR cervical spine min 6V IMPRESSION: No acute findings. No significant degenerative changes. No significant osseous neural foraminal encroachment evident within the cervical spine from a radiographic standpoint. MRI of the cervical spine would be more sensitive and specific.
--- NOTE | ~2021-07-14 | US_ITS ---
EXAMINATION: US ABDOMEN COMPLETE CLINICAL INFORMATION: Abdominal pain COMPARISON: CT abdomen/pelvis dated 09/02/2018 TECHNIQUE: Real-time imaging of the abdominal viscera. FINDINGS: PANCREAS: Normal. ABDOMINAL AORTA: The proximal, mid, and distal segments are normal in caliber. INFERIOR VENA CAVA: Visualized portions are normal. LIVER: The liver contour is normal. There is diffuse increased liver parenchymal echogenicity, consistent with hepatic steatosis. No focal hepatic lesion. There is no intrahepatic biliary duct dilatation seen. GALLBLADDER: Normal. The gallbladder is physiologically distended without evidence of stones, sludge, polyps, wall thickening or pericholecystic fluid. COMMON BILE DUCT: Normal in caliber measuring 0.3 cm in diameter. RIGHT KIDNEY: Normal. No hydronephrosis. No renal calculi or focal parenchymal lesions. The kidney measures 14.3 cm in maximum dimension. LEFT KIDNEY: Normal. No hydronephrosis. No renal calculi or focal parenchymal lesions. The kidney measures 14.3 cm in maximum dimension. SPLEEN: Normal. The spleen measures 8.9 cm in maximum dimension. FREE FLUID: None. US/US abdomen complete IMPRESSION: No acute findings. Hepatic steatosis.
--- NOTE | ~2021-07-14 | XR_ITS ---
EXAMINATION: XR thoracic spine 2V, XR cervical spine min 6V CLINICAL INFORMATION: Reason for Exam LUMBAGO WITH SCIATICA COMPARISON: MRI cervical spine dated 07/17/2018 TECHNIQUE: 3 views of the thoracic spine and 5 views of the cervical spine FINDINGS: No acute fracture or traumatic malalignment. Vertebral body heights maintained. Oblique views demonstrate osseous neural foraminal encroachment within the cervical spine. No significant degenerative changes evident. Paraspinal soft tissues unremarkable. XR/XR thoracic spine 2V IMPRESSION: No acute findings. No significant degenerative changes. No significant osseous neural foraminal encroachment evident within the cervical spine from a radiographic standpoint. MRI of the cervical spine would be more sensitive and specific.
--- NOTE | ~2021-07-14 | XR_ITS ---
EXAMINATION: XR LUMBOSACRAL SPINE CLINICAL INFORMATION: Pain COMPARISON: None TECHNIQUE: Three views of the lumbosacral spine. FINDINGS: The vertebral bodies and posterior elements are normal. The disc spaces are preserved and the vertebral alignment is normal. The paraspinal soft tissues are normal. XR/XR lumbar spine 2-3V IMPRESSION: No significant osseous changes. Bone alignments are satisfactory.
[2021-07-14 10:38] LABS: MANUAL DIFF FLAG NO
[2021-07-14 10:43] LABS: Basophils Percent Auto 0.6 % (0-2); Eosinophils Absolute Auto 0.3 X10*3/uL (0.0-0.4); Eosinophils Percent Auto 4.5 % (0-4); Hematocrit 40.3 % (37.0-47.0); Imm Gran Abs Auto 0.01 X10*3/uL (0.00-0.03); Imm Gran Pct Auto 0.1 % (0.0-0.4); Lymphocytes Absolute Auto 2.6 X10*3/uL (1.2-4.9); Lymphocytes Percent Auto 36.7 % (20-40); Mean Corpuscular HGB Conc 32.3 g/dl (31.0-35.0); Mean Corpuscular Hemoglobin 26.6 pg (27.0-33.0); Mean Corpuscular Volume 82.6 fL (80.0-98.0); Mean Platelet Volume 9.9 fL (9.4-12.3); Monocytes Absolute Auto 0.4 X10*3/uL (0.1-1.2); Monocytes Percent Auto 5.8 % (2-11); Neutrophils Absolute Auto 3.8 x10*3/uL (2.0-8.3); Neutrophils Percent Auto 52.3 % (45-73); Platelet Count 320 X10*3/uL (160-400); Red Blood Count 4.88 X10*6/uL (4.20-5.50); Red Cell Distribution Width 16.9 % (11.0-16.0); White Blood Count 7.2 X10*3/uL (4.8-10.8)
[2021-07-14 11:29] LABS: Alanine Aminotransferase 30 U/L (0-31); Albumin Level 4.9 g/dL (3.5-5.0); Alkaline Phosphatase 35 U/L (39-117); Aspartate Amino Transferase 24 U/L (5-31); Bilirubin Direct < 0.2 mg/dL (0.0-0.5); Bilirubin Total 0.4 mg/dL (0.0-1.0); C Reactive Protein 0.52 mg/dL (< or = 0.50); Lipase 31 U/L (8-78); Total Protein 7.4 g/dL (6.5-8.0)
[2021-07-14 11:53] LABS: Ferritin 125 ng/mL (10-122)
== END 2021-07-14 09:22 | disposition home or self-care (01) ==
LOC: HO.US 09:21
PROVIDERS: Absent Provider Registered Nurse; PCP Registered Nurse; Visit Provider Internal Medicine Gastroenterology
DX: R10.9 Unspecified abdominal pain (principal); M47.22 Other spondylosis with radiculopathy, cervical region; M54.41 Lumbago with sciatica, right side; M54.42 Lumbago with sciatica, left side; M54.6 Pain in thoracic spine
CPT/HCPCS: 36415; 72052; 72070; 72100; 76700; 80076; 82728; 83690; 85025; 86140

== ENCOUNTER → 2021-08-08 14:17 | Outpatient (BNVA) | payer MEDICAID, SELFPAY | PROVIDERS: Visit Provider Obstetrics & Gynecology | DX: N93.9 Abnormal uterine and vaginal bleeding, unspecified (principal) | CPT/HCPCS: 99212 ==

== ENCOUNTER 2021-10-10 04:32 | Emergency (ER) | payer MEDICAID, SELFPAY ==
--- NOTE | ~2021-10-10 | XR_ITS ---
EXAMINATION: XR CHEST CLINICAL INFORMATION: Cough, shortness of breath COMPARISON: None TECHNIQUE: Frontal view of the chest was obtained. FINDINGS: The lungs are clear with no focal consolidation. No evidence of pneumothorax, pulmonary edema, or pleural effusions. The cardiomediastinal silhouette is unremarkable. No acute osseous findings. XR/XR chest 1V IMPRESSION: No acute cardiopulmonary findings.
[2021-10-10 04:40] VITALS: BP 136/93; PULSE 63; RESP 16; TEMP 35.8; O2SAT 98; BMI 34.4
[2021-10-10 05:01] LABS: Strep A Nucleic Acid Negative (Negative)
[2021-10-10 05:08] LABS: COVID-19 Test Negative (Negative); IDNOW Serial# 16C4AD1C; Influenza A Negative (Negative); Influenza B2 Negative (Negative)
--- NOTE | 2021-10-10 06:34 | ED_ITS ---
HPI - URI/Sore Throat General Chief Complaint: Upper Respiratory Symptoms Stated Complaint: sore throat, swollen, difficulty breathing Time Seen by Provider: 10/10/21 06:34 Source: patient Mode of arrival: ambulatory Limitations: no limitations History of Present Illness MD elicited complaint: cough, sore throat and rhinorrhea Onset (ago): day(s) (3) Consistency: constant Severity: moderate Description of mucous: clear Able to tolerate fluids by mouth: Yes Exacerbating factors: swallowing Relieving factors: nothing Context: sick contacts (child with similar cold) Associated symptoms: chills, rhinorrhea, sore throat and cough Treatments prior to arrival: none Related Data Home Medications Medication Instructions Recorded Confirmed ascorbate calcium (vitamin C) 500 500 mg PO BID 02/18/20 06/23/21 mg tablet dapagliflozin 5 mg tablet (Farxiga) 5 mg PO QAM 02/18/20 06/23/21 hydroxyzine HCl 25 mg tablet 25 mg PO Q8H PRN tab 02/18/20 06/23/21 metformin 1,000 mg tablet 1,000 mg PO BID 02/18/20 06/23/21 paroxetine HCl 40 mg tablet (Paxil) 40 mg PO DAILY 02/18/20 06/23/21 atorvastatin 40 mg tablet 80 mg PO DAILY tab 09/27/20 06/23/21 losartan 25 mg tablet 25 mg PO DAILY 09/27/20 06/23/21 Previous Rx's Medication Instructions Recorded dicyclomine 20 mg tablet 20 mg PO QID 30 Days #120 tab 05/04/20 acetaminophen 500 mg tablet 500 mg PO Q6H PRN #20 tab 08/19/20 (Tylenol Extra Strength) cyclobenzaprine 5 mg tablet 5 mg PO Q8H PRN 5 Days #14 tab 08/19/20 naproxen 500 mg tablet 500 mg PO BID PRN 10 Days #20 tab 08/19/20 medroxyprogesterone 10 mg tablet 10 mg PO DAILY 10 Days #30 tab 09/27/20 (Provera) metoprolol succinate 50 mg 75 mg PO DAILY 90 Days #135 tab 04/01/21 tablet,extended release 24 hr metronidazole 500 mg tablet 500 mg PO BID 7 Days #14 tab 04/12/21 ibuprofen 600 mg tablet 600 mg PO Q6H PRN #14 tab 04/18/21 lorazepam 0.5 mg tablet (Ativan) 0.5 mg PO TID PRN #7 tab 04/18/21 meclizine 25 mg tablet 25 mg PO TID PRN #10 tab 04/18/21 famotidine 20 mg tablet 20 mg PO BID 30 Days #60 tab 06/23/21 medroxyprogesterone 10 mg tablet 10 mg PO DAILY 60 Days #60 tab 08/08/21 (Provera) amoxicillin 500 mg tablet 500 mg PO BID 10 Days #20 tab 10/10/21 Allergies Allergy/AdvReac Type Severity Reaction Status Date / Time dextran sulfate AdvReac Unknown Verified 10/10/21 04:44 Review of Systems Review of Systems: Constitutional : no Fever, positive Chills, positive fatigue, positive Malaise ENT/Mouth : positive sore throat, positive runny nose Eyes: No Discharge Cardiovascular : No Chest Pain, No SOB Respiratory : pos Cough, No Sputum Gastrointestinal : No Nausea, No Vomiting, No Diarrhea Genitourinary : No Dysuria, No Urinary Frequency Musculoskeletal : positive Myalgia Skin : No rash Neuro : No Headache PMFSH Past Medical History Attestation statement: The following information was validated with the patient. Medical History Abnormal uterine bleeding Arthritis Cardiac arrhythmia Carpal tunnel syndrome Fibromyalgia High cholesterol Panic attacks PVC (premature ventricular contraction) Scoliosis Type 2 diabetes mellitus Surgical History H/O excision of mass H/O excision of mass Hx of colonoscopy Hx of esophagogastroduodenoscopy Myxoinflammatory fibroblastic sarcoma (~08/2017) Previous section S/P repair of ventral hernia (~11/2017) Tubal ligation status Family History Family History Father History of stroke History of prostate cancer Mother History of breast cancer History of diabetes mellitus History of cardiovascular disorder Social History Social History Alcohol intake: former Patient Tobacco Use Status: Current everyday Tobacco user Tobacco use type: Cigarette Cigarettes Per Day: 10 Years Smoked: 15 Advance Directives: No Physical Exam Vital Signs: Vital Signs: Last Vital Signs Temp 96.5 F L 10/10/21 04:40 Pulse 63 10/10/21 04:40 Resp 16 10/10/21 04:40 BP 136/93 H 10/10/21 04:40 Pulse Ox 98 10/10/21 04:40 BMI result Body Mass Index 34.4 Appearance: Alert. Oriented X3. No acute distress. not toxic appearing Eyes: Pupils equal, round and reactive to light. ENT: Pharynx moderate generalized erythema, normal voice, tolerating secretions, white patches on both tonsils uvula midline Neck: Normal inspection. Neck supple. CVS: Normal heart rate and rhythm. Pulses normal. Respiratory: No respiratory distress. Breath sounds normal. Abdomen: Soft and nontender. Skin: Skin warm and dry. Normal skin color. Normal skin turgor. Extremities: No lower extremity edema. No calf ttp Neuro: Oriented X 3. No motor deficit. No sensory deficit. MDM - URI/Sore Throat MDM Narrative Medical decision making narrative: 36 yo female with hx of fibromyalgia, anemia, asthma vaccinated for COVID here with c/o sore throat x 3 days - her throat is red swollen with white patches consistent with strep throat - at this time will start on amoxcillin. There are no signs of deeper space infection and she is not toxic at this time. Other swabs and CXR from triage are negative. Lab Data Labs: Lab Results 10/10/21 10/10/21 10/10/21 Range/Units 04:47 04:47 04:47 COVID-19 ([facility]) Negative (Negative) COVID-19 Clin Com See Note Influenza Type A ([facility]) Negative (Negative) Influenza Type B ([facility]) Negative (Negative) Influenza A & B Note See Note S. pyogenes GrpA [facility] Negative (Negative) Discharge Plan Discharge Clinical Impression: Acute streptococcal pharyngitis Patient Disposition: Home, Self-Care Instructions: Strep Throat (ED) Additional Instructions: return to ED for any worsening symptoms or concerns Prescriptions: New amoxicillin 500 mg tablet 500 mg PO BID 10 Days Qty: 20 0RF No Action metoprolol succinate 50 mg tablet extended release 24 hr 75 mg PO DAILY 90 Days Qty: 135 1RF metronidazole 500 mg tablet 500 mg PO BID 7 Days Qty: 14 0RF Rx Instructions: Take with food, Avoid alcohol and vinegar products acetaminophen [Tylenol Extra Strength] 500 mg tablet 500 mg PO Q6H PRN (Reason: pain or fever) Qty: 20 0RF naproxen 500 mg tablet 500 mg PO BID PRN (Reason: pain) 10 Days Qty: 20 0RF cyclobenzaprine 5 mg tablet 5 mg PO Q8H PRN (Reason: pain (scale score 7-10)) 5 Days Qty: 14 0RF ibuprofen 600 mg tablet 600 mg PO Q6H PRN (Reason: pain) Qty: 14 0RF meclizine 25 mg tablet 25 mg PO TID PRN (Reason: dizziness) Qty: 10 0RF lorazepam [Ativan] 0.5 mg tablet 0.5 mg PO TID PRN (Reason: dizziness or vertigo) Qty: 7 0RF Rx Instructions: This medication can cause drowsiness so no driving for 6 hours after taking dicyclomine 20 mg tablet 20 mg PO QID 30 Days Qty: 120 1RF losartan 25 mg tablet 25 mg PO DAILY 0RF medroxyprogesterone [Provera] 10 mg tablet 10 mg PO DAILY 10 Days Qty: 30 3RF Rx Instructions: start Provera 1 tablet daily from day 15-24 cyclically every months, day 1 being 1st day of menses ascorbate calcium (vitamin C) 500 mg tablet 500 mg PO BID 0RF paroxetine HCl [Paxil] 40 mg tablet 40 mg PO DAILY 0RF metformin 1,000 mg tablet 1,000 mg PO BID 0RF hydroxyzine HCl 25 mg tablet 25 mg PO Q8H PRN (Reason: Anxiety) 0RF Farxiga 5 mg tablet 5 mg PO QAM 0RF atorvastatin 40 mg tablet 80 mg PO DAILY 0RF medroxyprogesterone [Provera] 10 mg tablet 10 mg PO DAILY 60 Days Qty: 60 0RF Rx Instructions: start Provera 1 tablet daily from day 15-24 cyclically every months, day 1 being 1st day of menses famotidine 20 mg tablet 20 mg PO BID 30 Days Qty: 60 3RF Print Language: Lithuanian
[2021-10-10 07:21] VITALS: BP 122/77; PULSE 75; RESP 18; O2SAT 99
== END 2021-10-10 07:27 | disposition home or self-care (01) ==
PROVIDERS: Emergency Provider Emergency Medicine; PCP Registered Nurse
DX: J02.0 Streptococcal pharyngitis (principal); R05.9 Cough, unspecified; J34.89 Other specified disorders of nose and nasal sinuses; F17.210 Nicotine dependence, cigarettes, uncomplicated; Z71.6 Tobacco abuse counseling; Z20.822 Contact with and (suspected) exposure to COVID-19; Z79.899 Other long term (current) drug therapy
CPT/HCPCS: 71045; 87502; 87635; 87651; 99283

== ENCOUNTER 2021-10-16 19:15 | Emergency (ER) | payer MEDICAID, SELFPAY ==
[2021-10-16 19:47] VITALS: BP 173/91; PULSE 81; RESP 18; TEMP 36.8; O2SAT 98; BMI 34.9
[2021-10-16 20:14] LABS: Strep A Nucleic Acid Negative (Negative)
--- NOTE | 2021-10-17 00:40 | ED.GENADULT ---
HPI - General Adult General Chief complaint: General Medical Stated complaint: pain in throat/ear Time Seen by Provider: 10/17/21 00:03 History of Present Illness HPI narrative: Patient 36-year-old female presents today with having sore throat. The pain is more apparent on the left side. Also have some earache on the left. Patient has no difficulty with swallowing. No change in breathing pattern. No change with voice. Symptoms been ongoing for about a week. She had step test done. Also had a COVID test on left lung week ago. Was on antibiotics for 1 week. Continued to have the pain. No fever no chills no systemic complaints. Patient from home. Related Data Home Medications Medication Instructions Recorded Confirmed ascorbate calcium (vitamin C) 500 500 mg PO BID 02/18/20 06/23/21 mg tablet dapagliflozin 5 mg tablet (Farxiga) 5 mg PO QAM 02/18/20 06/23/21 hydroxyzine HCl 25 mg tablet 25 mg PO Q8H PRN tab 02/18/20 06/23/21 metformin 1,000 mg tablet 1,000 mg PO BID 02/18/20 06/23/21 paroxetine HCl 40 mg tablet (Paxil) 40 mg PO DAILY 02/18/20 06/23/21 atorvastatin 40 mg tablet 80 mg PO DAILY tab 09/27/20 06/23/21 losartan 25 mg tablet 25 mg PO DAILY 09/27/20 06/23/21 Previous Rx's Medication Instructions Recorded dicyclomine 20 mg tablet 20 mg PO QID 30 Days #120 tab 05/04/20 acetaminophen 500 mg tablet 500 mg PO Q6H PRN #20 tab 08/19/20 (Tylenol Extra Strength) cyclobenzaprine 5 mg tablet 5 mg PO Q8H PRN 5 Days #14 tab 08/19/20 naproxen 500 mg tablet 500 mg PO BID PRN 10 Days #20 tab 08/19/20 medroxyprogesterone 10 mg tablet 10 mg PO DAILY 10 Days #30 tab 09/27/20 (Provera) metoprolol succinate 50 mg 75 mg PO DAILY 90 Days #135 tab 04/01/21 tablet,extended release 24 hr metronidazole 500 mg tablet 500 mg PO BID 7 Days #14 tab 04/12/21 ibuprofen 600 mg tablet 600 mg PO Q6H PRN #14 tab 12/06/21 lorazepam 0.5 mg tablet (Ativan) 0.5 mg PO TID PRN #7 tab 04/18/21 meclizine 25 mg tablet 25 mg PO TID PRN #10 tab 04/18/21 famotidine 20 mg tablet 20 mg PO BID 30 Days #60 tab 06/23/21 medroxyprogesterone 10 mg tablet 10 mg PO DAILY 60 Days #60 tab 08/08/21 (Provera) amoxicillin 500 mg tablet 500 mg PO BID 10 Days #20 tab 10/10/21 Allergies Allergy/AdvReac Type Severity Reaction Status Date / Time dextran sulfate AdvReac Unknown Verified 10/16/21 19:47 Review of Systems Review of Systems: Positive sore throat positive earache Yes all other systems are reviewed and are negative PMFSH Past Medical History Attestation statement: The following information was validated with the patient. Medical History Abnormal uterine bleeding Arthritis Cardiac arrhythmia Carpal tunnel syndrome Fibromyalgia High cholesterol Panic attacks PVC (premature ventricular contraction) Scoliosis Type 2 diabetes mellitus Surgical History H/O excision of mass H/O excision of mass Hx of colonoscopy Hx of esophagogastroduodenoscopy Myxoinflammatory fibroblastic sarcoma (~08/2017) Previous section S/P repair of ventral hernia (~11/2017) Tubal ligation status Family History Family History Father History of stroke History of prostate cancer Mother History of breast cancer History of diabetes mellitus History of cardiovascular disorder Social History Social History Alcohol intake: former Patient Tobacco Use Status: Current everyday Tobacco user Tobacco use type: Cigarette Cigarettes Per Day: 10 Years Smoked: 15 Advance Directives: No Advance Directives Information Provided: No Physical Exam ED Vital Signs: Vital Signs - 24 hr 10/16/21 19:47 Temperature 98.2 F Pulse Rate 81 Respiratory Rate 18 Blood Pressure 173/91 H Pulse Oximetry 98 BMI result Body Mass Index 34.9 Appearance: Alert. Oriented X3. No acute distress. Eyes: Pupils equal, round and reactive to light. ENT: Pharynx normal. There is no erythema noted. Tonsils not enlarged. TMs are intact bilaterally. There is no erythema noted. No bulging eardrum noted. Neck: Normal inspection. Neck supple. No lymph nodes noted. No crepitus CVS: Normal heart rate and rhythm. Pulses normal. Normal S1 and S2 Respiratory: No respiratory distress. Breath sounds normal. No Wheezing. No rales Abdomen: Soft and nontender. No rigidity. No distention. good BS x4 Skin: Skin warm and dry. Normal skin color. Normal skin turgor. Extremities: No lower extremity edema. Neurovascular intact to all extremities. No Lacerations. No Rash Neuro: Oriented X 3. No motor deficit. No sensory deficit. Moving all extermities. No slurred speech Medical Decision Making MDM Narrative Medical decision making narrative: Patient's COVID test was negative. Rapid strep is negative. Exam is normal. Positive pain to the back of the throat. Will have patient follow-up with ENT on an outpatient basis. Your exam was also normal. Patient in no distress. Motrin for pain. In stable condition. Lab Data Labs: Lab Results 10/16/21 Range/Units 19:55 S. pyogenes GrpA [facility] Negative (Negative) Discharge Plan Discharge Clinical Impression: Chronic sore throat Patient Disposition: Home, Self-Care Instructions: Pharyngitis (ED) Prescriptions: No Action metoprolol succinate 50 mg tablet extended release 24 hr 75 mg PO DAILY 90 Days Qty: 135 1RF metronidazole 500 mg tablet 500 mg PO BID 7 Days Qty: 14 0RF Rx Instructions: Take with food, Avoid alcohol and vinegar products acetaminophen [Tylenol Extra Strength] 500 mg tablet 500 mg PO Q6H PRN (Reason: pain or fever) Qty: 20 0RF naproxen 500 mg tablet 500 mg PO BID PRN (Reason: pain) 10 Days Qty: 20 0RF cyclobenzaprine 5 mg tablet 5 mg PO Q8H PRN (Reason: pain (scale score 7-10)) 5 Days Qty: 14 0RF ibuprofen 600 mg tablet 600 mg PO Q6H PRN (Reason: pain) Qty: 14 0RF meclizine 25 mg tablet 25 mg PO TID PRN (Reason: dizziness) Qty: 10 0RF lorazepam [Ativan] 0.5 mg tablet 0.5 mg PO TID PRN (Reason: dizziness or vertigo) Qty: 7 0RF Rx Instructions: This medication can cause drowsiness so no driving for 6 hours after taking amoxicillin 500 mg tablet 500 mg PO BID 10 Days Qty: 20 0RF dicyclomine 20 mg tablet 20 mg PO QID 30 Days Qty: 120 1RF losartan 25 mg tablet 25 mg PO DAILY 0RF medroxyprogesterone [Provera] 10 mg tablet 10 mg PO DAILY 10 Days Qty: 30 3RF Rx Instructions: start Provera 1 tablet daily from day 15-24 cyclically every months, day 1 being 1st day of menses ascorbate calcium (vitamin C) 500 mg tablet 500 mg PO BID 0RF paroxetine HCl [Paxil] 40 mg tablet 40 mg PO DAILY 0RF metformin 1,000 mg tablet 1,000 mg PO BID 0RF hydroxyzine HCl 25 mg tablet 25 mg PO Q8H PRN (Reason: Anxiety) 0RF Farxiga 5 mg tablet 5 mg PO QAM 0RF atorvastatin 40 mg tablet 80 mg PO DAILY 0RF medroxyprogesterone [Provera] 10 mg tablet 10 mg PO DAILY 60 Days Qty: 60 0RF Rx Instructions: start Provera 1 tablet daily from day 15-24 cyclically every months, day 1 being 1st day of menses famotidine 20 mg tablet 20 mg PO BID 30 Days Qty: 60 3RF Referrals: Joseph Dinh [Physician] -
[2021-10-17 01:09] LABS: COVID-19 Test Negative (Negative)
== END 2021-10-17 01:13 | disposition home or self-care (01) ==
PROVIDERS: Emergency Provider Emergency Medicine Emergency Medical Services
DX: J02.9 Acute pharyngitis, unspecified (principal); H92.02 Otalgia, left ear; Z20.822 Contact with and (suspected) exposure to COVID-19; E11.9 Type 2 diabetes mellitus without complications; E78.5 Hyperlipidemia, unspecified; F17.200 Nicotine dependence, unspecified, uncomplicated
CPT/HCPCS: 36415; 87635; 87651; 99282; 99283

== ENCOUNTER 2022-02-06 08:49 | Outpatient (REF) | payer MEDICAID, SELFPAY ==
--- NOTE | ~2022-02-06 | XR_ITS ---
EXAMINATION: CHEST AND BILATERAL RIB X-RAYS CLINICAL INFORMATION: Superficial papule located on sternum COMPARISON: Previous chest x-ray September 2021 TECHNIQUE: 2 views of the chest. 3 views of the bilateral ribs. FINDINGS: Chest: The cardiac and mediastinal contours are normal. The lungs are clear. There is no pleural effusion or pneumothorax. Bony structures are unremarkable. Bilateral RIBS: No fracture or dislocation or bone lesion is seen. XR/XR chest 2V IMPRESSION: Normal chest and bilateral rib x-rays.
--- NOTE | ~2022-02-06 | XR_ITS ---
EXAMINATION: CHEST AND BILATERAL RIB X-RAYS CLINICAL INFORMATION: Superficial papule located on sternum COMPARISON: Previous chest x-ray September 2021 TECHNIQUE: 2 views of the chest. 3 views of the bilateral ribs. FINDINGS: Chest: The cardiac and mediastinal contours are normal. The lungs are clear. There is no pleural effusion or pneumothorax. Bony structures are unremarkable. Bilateral RIBS: No fracture or dislocation or bone lesion is seen. XR/XR ribs BI 3V IMPRESSION: Normal chest and bilateral rib x-rays.
== END 2022-02-06 08:50 | disposition home or self-care (01) ==
LOC: HO.XRAY 08:49
PROVIDERS: PCP Registered Nurse; Visit Provider Registered Nurse
DX: R07.89 Other chest pain (principal); N93.9 Abnormal uterine and vaginal bleeding, unspecified
CPT/HCPCS: 71046; 71110; 99212

== ENCOUNTER → 2022-03-02 09:58 | Outpatient (BNVA) | payer MEDICAID, SELFPAY | PROVIDERS: PCP Registered Nurse; Referring Provider Nurse Practitioner Primary Care; Visit Provider Internal Medicine Gastroenterology | DX: R10.9 Unspecified abdominal pain (principal); K64.9 Unspecified hemorrhoids; R19.7 Diarrhea, unspecified; E73.9 Lactose intolerance, unspecified | CPT/HCPCS: 99212 ==

== ENCOUNTER → 2022-06-15 10:38 | Outpatient (BNVA) | payer MEDICAID, SELFPAY | PROVIDERS: PCP Registered Nurse; Referring Provider Registered Nurse; Visit Provider Internal Medicine Cardiovascular Disease | DX: I49.3 Ventricular premature depolarization (principal); E11.9 Type 2 diabetes mellitus without complications; E78.00 Pure hypercholesterolemia, unspecified; F17.210 Nicotine dependence, cigarettes, uncomplicated | CPT/HCPCS: 93005; 99212 ==

== ENCOUNTER → 2022-10-24 09:23 | Outpatient (BNVA) | payer MEDICAID, SELFPAY | PROVIDERS: PCP Registered Nurse; Visit Provider Surgery Vascular Surgery | DX: I83.11 Varicose veins of right lower extremity with inflammation (principal) | CPT/HCPCS: 99202 ==

== ENCOUNTER 2022-10-31 13:37 | Outpatient (REF) | payer MEDICAID, SELFPAY ==
--- NOTE | ~2022-10-31 | XR_ITS ---
EXAMINATION: XR HAND, RIGHT CLINICAL INFORMATION: Worsening right hand pain after dog bite 1 week ago COMPARISON: None available. TECHNIQUE: PA, lateral, and oblique views of the right hand. FINDINGS: No fracture or erosive changes. Alignment is anatomic. Joint spaces are maintained. No focal soft tissue swelling, foreign bodies, calcifications or abnormal air collections. XR/XR hand RT min 3V IMPRESSION: No acute bony pathology.
== END 2022-10-31 13:38 | disposition home or self-care (01) ==
LOC: HO.HHCX 13:37
PROVIDERS: Visit Provider Nurse Practitioner Primary Care
DX: S61.451A Open bite of right hand, initial encounter (principal); M79.641 Pain in right hand; W54.0XXA Bitten by dog, initial encounter; Y93.9 Activity, unspecified; Y92.9 Unspecified place or not applicable; Y99.9 Unspecified external cause status
CPT/HCPCS: 73130

== ENCOUNTER 2022-12-27 08:10 | Outpatient (REF) | payer MEDICAID, SELFPAY ==
--- NOTE | ~2022-12-27 | US_ITS ---
EXAMINATION: US LOWER EXTREMITY VENOUS (REFLUX EXAM), BILATERAL CLINICAL INDICATION: Varicose veins COMPARISON: None. TECHNIQUE: Color flow triplex imaging and compression Doppler was performed to evaluate both the deep and the superficial systems bilaterally. To evaluate the superficial system, the examination was performed in the upright position. Color-flow Doppler ultrasound and compression ultrasound were utilized. In addition, maneuvers were utilized to demonstrate reflux. FINDINGS: 1. DEEP VENOUS ULTRASOUND OF THE RIGHT LOWER EXTREMITY: Common Femoral Vein: Compressible, normal respiratory variation and augmented flow. Femoral Vein: Compressible, normal color flow and augmentation. Popliteal Vein: Compressible, normal augmentation. Deep Reflux: There is no evidence of reflux in the deep system in either the common femoral vein or the popliteal vein. There is no evidence of a Vasquez's cyst. 2. SUPERFICIAL ULTRASOUND WITH DOPPLER OF RIGHT LOWER EXTREMITY: GREAT SAPHENOUS VEIN: Saphenofemoral Junction: 0.7cm; Reflux: 0 ms Proximal Thigh: 0.4cm; Reflux: 0 ms Mid Thigh: 0.3cm; Reflux: 0 ms Above Knee: 0.3cm; Reflux: 0 ms At Knee: 0.3cm; Reflux: 0 ms Below Knee: 0.3cm; Reflux: 0 ms Mid Calf: 0.2cm; Reflux: 0 ms Ankle: 0.2cm; Reflux: 0 ms DUPLICATED MEDIAL GREAT SAPHENOUS VEIN: Diameter: None imaged Reflux: NA DUPLICATED LATERAL GREAT SAPHENOUS VEIN: Proximal: 0.2cm; Reflux: 0 ms Distal: 0.2cm; Reflux: 0 ms SMALL SAPHENOUS VEIN: Proximal: 0.2cm; Reflux: 0 ms Distal: 0.2cm; Reflux: 0 ms VEIN OF GIACOMINI: Size: 0.1cm Reflux: NA PERFORATORS: Location: Multiple calf perforators Size: 0.2 cm Reflux: NA VARICOSITIES: Location: None imaged Size: NA Reflux: NA 3. DEEP VENOUS ULTRASOUND OF THE LEFT LOWER EXTREMITY: Common Femoral Vein: Compressible, normal respiratory variation and augmented flow. Femoral Vein: Compressible, normal color flow and augmentation. Popliteal Vein: Compressible, normal augmentation. Deep Reflux: There is no evidence of reflux in the deep system in either the common femoral vein or the popliteal vein. There is no evidence of a Vasquez's cyst. 4. SUPERFICIAL ULTRASOUND WITH DOPPLER OF LEFT LOWER EXTREMITY: GREAT SAPHENOUS VEIN: Saphenofemoral Junction: 1.0cm; Reflux: 0 ms Proximal Thigh: 0.6cm; Reflux: 0 ms Mid Thigh: 0.4cm; Reflux: 0 ms Above Knee: 0.4cm; Reflux: 0 ms At Knee: 0.4cm; Reflux: 0 ms Below Knee: 0.3cm; Reflux: 0 ms Mid Calf: 0.2cm; Reflux: 0 ms Ankle: 0.3cm; Reflux: 0 ms DUPLICATED MEDIAL GREAT SAPHENOUS VEIN: Diameter: None imaged Reflux: NA DUPLICATED LATERAL GREAT SAPHENOUS VEIN: Diameter: None imaged Reflux: NA SMALL SAPHENOUS VEIN: Proximal: 0.3cm; Reflux: 0 ms Distal: 0.1cm; Reflux: 0 ms VEIN OF GIACOMINI: Size: NA Reflux: NA PERFORATORS: Location: [place] Size: 0.2 cm Reflux: NA VARICOSITIES: Location: None imaged Size: NA Reflux: NA US/US venous duplex LE BI IMPRESSION: 1. No evidence of DVT or deep venous reflux. 2. The saphenous systems are competent bilaterally.
== END 2022-12-27 08:11 | disposition home or self-care (01) ==
LOC: HO.US 08:10
PROVIDERS: PCP Registered Nurse; Visit Provider Surgery Vascular Surgery
DX: I83.893 Varicose veins of bilateral lower extremities with other complications (principal)
CPT/HCPCS: 93970

== ENCOUNTER 2023-03-13 11:01 | Outpatient (REF) | payer MEDICAID, SELFPAY ==
--- NOTE | ~2023-03-13 | XR_ITS ---
EXAMINATION: XR HAND, RIGHT CLINICAL INFORMATION: Pain COMPARISON: Right hand radiograph from 10/31/2022 TECHNIQUE: Four views of the right hand. FINDINGS: No acute visible fracture or dislocation. Negative ulnar variance. Joint spaces and alignment are maintained. Soft tissues are unremarkable. XR/XR hand RT min 3V IMPRESSION: 1. No acute visible fracture or dislocation. 2. Negative ulnar variance.
== END 2023-03-13 11:02 | disposition home or self-care (01) ==
LOC: HO.HOSX 11:01
PROVIDERS: Visit Provider Orthopaedic Surgery
DX: M65.331 Trigger finger, right middle finger (principal); M79.644 Pain in right finger(s)
CPT/HCPCS: 73130; 99202

== ENCOUNTER 2023-03-13 14:58 | Outpatient (AMB) | payer MEDICAID, SELFPAY ==
[2023-03-13 15:23] VITALS: BMI 33.0
--- NOTE | 2023-03-13 15:23 | MHC.OFFVIS ---
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 States her middle finger locks in place and has severe pain. This started about to increase about 2 months ago. States she would like to discuss surgical intervention. Also has pain in her index finger and has trouble opening up a bottle s/p getting bite by her dog about 4months ago. Hx of cancer myxoinflammatory fibroblastic sarcoma right hand 2018. 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 She complains of severe pain and locking of her right middle finger, onset ~2 months ago. She also complains of pain in her index finger and difficulty with gripping objects, such as opening bottles. She says this began ~4 months ago after her dog bit her finger. Her pain occurs when she grabs objects or bends her finger, and is accompanied by weakness. She says her pain is right over where her dog bit her. She denies any symptoms of infection. [facility] Medical History Abnormal uterine bleeding Arthritis Cardiac arrhythmia Carpal tunnel syndrome Fibromyalgia High cholesterol Panic attacks PVC (premature ventricular contraction) Scoliosis Type 2 diabetes mellitus Surgical History H/O excision of mass H/O excision of mass Hx of colonoscopy Hx of esophagogastroduodenoscopy Myxoinflammatory fibroblastic sarcoma (~08/2017) Previous section S/P repair of ventral hernia (~11/2017) Tubal ligation status Family History Father History of stroke History of prostate cancer Mother History of breast cancer History of diabetes mellitus History of cardiovascular disorder Social History (Updated 03/13/23 @ 15:[address] 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 Sexual orientation: Straight/Heterosexual Gender identity: Female Female Reproductive History Menstrual Age of Menarche: 10 Review of Systems Const All systems reviewed & are unremarkable except as noted in HPI and below Physical Exam Vital Signs: BMI result Body Mass Index 33.0 Const General: cooperative, healthy appearing and no acute distress Orientation/consciousness: patient oriented x3 HEENT Head: Yes normocephalic and Yes atraumatic Eyes EOM: EOMs intact bilaterally Resp Effort & Inspection: normal respiratory effort and able to speak in complete sentences Cardio Jugular venous distension: no JVD Skin General skin exam: turgor normal Rashes: no rashes Neuro General: patient oriented x3 Extrem Other: Evaluation of Right Upper Extremity: The patient is alert, oriented, and in no acute distress Neuro: Median, Ulnar, Radial nerves motor and sensory intact and sensation is normal to the tips of all digits Vascular: Cap refill brisk ROM: She can make a fist and extend all her digits Visible and palpable locking and catching of the middle finger Tender over the a1 figueroa of the middle finger She has pain in the dorsal aspect of the 2nd MCP joint Normal flexion and extension of the index finger Good active ROM No swelling or evidence of infection Skin: No lacerations or abrasions. General: No Ecchymosis. No Erythema or evidence of infection. She has a large scar on her right volar mid-forearm after a carcoma excision in 2019 Radiographs: 3 views of the right hand were taken and viewed by me today in clinic. They show no fractures or dislocations. Psych Appearance: grossly normal Affect: normal affect Attitude: cooperative Assessment & Plan Assessment & Plan (1) Trigger finger, right middle finger: Code(s): M65.331 - Trigger finger, right middle finger (2) Pain in finger of right hand: Code(s): M79.644 - Pain in right finger(s) Plan Assessment & Plan: 1. Right middle finger trigger finger I educated her about this condition I discussed operative and non-operative treatment options The patient would like to proceed with surgery The risks and benefits of operative treatment were discussed with the patient and the patient wishes to proceed with surgery. These risks include, but are not limited to risk of damage to blood vessels, nerves, tendons, infection, recurrence, incomplete relief of preoperative symptoms, persistent pain, possible need for further surgery and the risks associated with regional blocks and anesthesia. The plan is to take the patient to the operating room sometime in the next few weeks for the following procedures: 1. Right middle finger trigger release, under local All of the preoperative paperwork including the consent was filled out today. All the patient's questions were answered. The patient understands that they will be contacted by our patient scheduler soon to schedule this procedure She denies blood thinners, asthma, heart, lung, kidney issues She is a Diabetic, she says her most recent HgA1c was ~7.0% 2. Right index finger pain Dorsal aspect of the 2nd MCP joint This pain is where her dog bit her finger ~4 months ago Radiographs are unremarkable and she has no evidence of infection No acute intervention warranted She can follow up prn Scribed for Galina Reyes MD by Rodrigo Jane, medical billing coder, on [ ] at [ ], EST. Orders: Orders XR hand RT min 3V Today M79.641 - Pain in right hand Coding Level of Care Code New Pt Level 4 (23325) Diagnoses Trigger finger, right middle finger M65.331 Pain in finger of right hand M79.644
== END 2023-03-13 15:58 | disposition home or self-care (01) ==
PROVIDERS: PCP Registered Nurse; Visit Provider Orthopaedic Surgery
DX: M65.331 Trigger finger, right middle finger (principal); M79.644 Pain in right finger(s); W54.0XXA Bitten by dog, initial encounter
CPT/HCPCS: 99204

== ENCOUNTER 2023-04-24 14:09 | Outpatient (AMB) | payer MEDICAID, SELFPAY ==
--- NOTE | 2023-04-24 14:18 | MHC.OFFVIS ---
Intake Intake Visit Reasons: FU Intake Note: pt her fo fallow with hx of VV she states that she is still having pain on both LE. 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 She has some swelling and discomfort. She has to lumps on the lateral aspects of both calfs. She now presents for follow-up with venous insufficiency testing. Of note she has had right upper extremity sarcoma removal x3 by Dr. Restrepo. She now presents for follow-up with venous insufficiency testing [facility] Medical History PVC (premature ventricular contraction) Arthritis Abnormal uterine bleeding Cardiac arrhythmia Scoliosis Fibromyalgia Carpal tunnel syndrome Panic attacks High cholesterol Type 2 diabetes mellitus Surgical History Hx of esophagogastroduodenoscopy Hx of colonoscopy H/O excision of mass Tubal ligation status S/P repair of ventral hernia (~11/2017) H/O excision of mass Previous section Myxoinflammatory fibroblastic sarcoma (~08/2017) Family History Father History of stroke History of prostate cancer Mother History of breast cancer History of diabetes mellitus History of cardiovascular disorder Social History Household Members: Spouse and Children Housing: Apartment Alcohol intake: former Patient Tobacco Use Status: Current everyday Tobacco user Tobacco use type: Cigarette Cigarettes Per Day: 6 Years Smoked: 15 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 Sexual orientation: Straight/Heterosexual Gender identity: Female Female Reproductive History Menstrual Age of Menarche: 10 Review of Systems Const All systems reviewed & are unremarkable except as noted in HPI and below Reports no additional complaints ENT Reports Normal hearing present Card Denies chest pain, Denies chest pain at rest, Denies chest pain with activity and Denies pedal edema Resp Denies cough GI Denies abdominal pain Musc Denies abnormal gait, Denies muscle cramps and Denies radiating pain into limb Skin/Breast Denies skin ulcer and Denies wounds Neuro Reports Normal hearing present and Denies abnormal gait Psych Reports no additional complaints Physical Exam Const General: cooperative, healthy appearing and comfortable Orientation/consciousness: oriented to person, oriented to place and oriented to time HEENT Head: Yes normal to inspection Neck Neck: Yes normal visual inspection Carotids: no bruits Chest Chest palpation & inspection: normal inspection of the chest Resp Effort & Inspection: normal respiratory effort and able to speak in complete sentences Auscultation: clear to auscultation bilaterally, no crackles, no rales, no rhonchi and no wheezes Cardio Rate: regular rate Rhythm: regular rhythm Heart sounds: S1 normal heart sound present and S2 normal heart sound present Bruits: no carotid bruits Peripheral pulses: Peripheral pulses 2+ throughout GI Inspection: Yes normal to inspection Skin Other: Bilateral lateral calf lumps solid. Bedside ultrasound does not demonstrate of venous connection. Wounds: no wounds Hair: normal Neuro General: oriented to person, oriented to place and oriented to time Cranial nerves: Yes CN's II-XII intact bilaterally and Yes Normal hearing present Cognition (Neuro): normal cognition Motor exam (neuro): 5/5 motor strength present throughout Extrem Other: venous exam: No significant superficial varicosities or spider telangiectasias, minimal edema General: No clubbing, No cyanosis and No edema Psych Appearance: grossly normal Mental Status: mental status grossly normal Speech and movement: Normal speech and movement present Results Reviewed Results Reviewed: Brief summary of venous insufficiency testing is as follows: right great saphenous vein: negative right small saphenous vein: negative right accessory vein: none present left great saphenous vein: negative left small saphenous vein: negative left accessory vein: none present Please note there is no evidence of any venous aneurysms or significant tortuosity Assessment & Plan Assessment & Plan (1) Varicose veins of right lower extremity with inflammation: Code(s): I83.11 - Varicose veins of right lower extremity with inflammation Plan: In short patient is negative for any significant venous insufficiency. I do believe that these masses are rather solid in nature. I did discuss them in detail with the patient should they persist or enlarge would recommend follow-up with General surgery. We did discuss routine conservative measures including compression elevation and exercise. She will follow up with us on an as-needed basis. Coding Level of Care Code Est Pt Level 4 (55466) Diagnoses Varicose veins of right lower extremity with inflammation I83.11
== END 2023-04-24 14:41 | disposition home or self-care (01) ==
PROVIDERS: PCP Registered Nurse; Visit Provider Surgery Vascular Surgery
DX: I83.11 Varicose veins of right lower extremity with inflammation (principal)
CPT/HCPCS: 99214

== ENCOUNTER → 2023-04-24 14:09 | Outpatient (BNVA) | payer MEDICAID, SELFPAY | PROVIDERS: PCP Registered Nurse; Visit Provider Surgery Vascular Surgery | DX: I83.11 Varicose veins of right lower extremity with inflammation (principal) | CPT/HCPCS: 99212 ==

== ENCOUNTER → 2023-07-05 14:15 | Outpatient (REF) | payer OTHER, SELFPAY ==
--- NOTE | 2023-07-05 14:18 | HM_ITS ---
Conclusion: 1. Patient was monitored for total period of 2 days 2. Baseline was normal sinus with average heart of 82 beats per minute 3. No significant pauses noted 4. Frequent PVCs noted with total burden of 9.3%, mostly isolated 5. No patient reported events MTDD
--- NOTE | 2023-07-05 14:18 | CA_ITS ---
Transthoracic Echocardiogram Patient (Last, First, Middle): Lg Mcdowell Michelle, Gender: Female Date of : 1985 Age: 38 Procedure Date: 07/05/2023 Procedure Type: Transthoracic Echocardiogram Location: OP Height: 170.18 cm Weight: 92.99 kg BSA: 2.04 m2 Heart Rate: bpm BP: 108 / 64 mmHg Head Of Conservation: TRENT Referring MD: Attila Ross MD Youth Minister: Attila Ross MD Symptoms: I49.3 - Ventricular premature depolarization Study Quality: Adequate ECG Rhythm: Sinus with PVCs Conclusions: - Normal study Findings Left Ventricle Normal left ventricular size, thickness, and systolic function. The visually estimated ejection fraction is between 60-65%. Spectral Doppler is indicative of a normal filling pattern. Peak GLS is -21.5%, within normal limits. Right Ventricle Normal right ventricular cavity size and systolic function. Atria Both atria are normal in size. There is no evidence of interatrial shunt. Aortic Valve Normal aortic valve structure and function. There is no aortic valve stenosis. There is no aortic valve regurgitation. Mitral Valve Normal mitral valve structure and function. There is trace mitral valve regurgitation. There is no mitral valve stenosis. Pulmonic Valve The pulmonic valve is likely normal. Tricuspid Valve Normal tricuspid valve structure. Tricuspid regurgitation envelope is inadequate for calculation of right ventricular systolic pressure. Normal right atrial pressure. Great Vessels All visible segments of the aorta are normal in size. The pulmonary artery was not well visualized. Venous The inferior vena cava is normal in size and collapses greater than 50% with inspiration. Pericardium/Pleural There is no evidence of pericardial effusion. Prior Study Comparison No significant change compared to prior study dated: 11/29/2017. Measurements 2D Linear Measurements IVSd: 0.85 0.6-0.9/0.6-1.0 cm LVIDd: 5.07 3.9-5.3/4.2-5.9 cm LVIDd Index: 2.49 2.4-3.2/2.2-3.1 cm/m2 LVIDs: 3.52 2.0-3.6 cm LVPWd: 0.91 0.7-1.1 cm LA Diam: 3.80 2.7-3.8/3.0-4.0 cm LAIDs Index: 1.86 1.5-2.3 cm/m2 LV Mass: 195.38 67-162/88-224 g LV Mass Index: 95.78 43-95/49-115 g/m2 LVOT Diam: 2.10 3.0+(-)1.3 cm 2D Systolic Function EF 4C: 61.30 >55% EF 2C: 65.10 >55% EF BiP: 63.90 >55% Mitral Valve MV Pk E: 0.89 MV PK A: 0.62 MV Decel Time: 235.00 E/A: 1.40 E'Lateral: 11.00 E'Medial: 9.14 E/E' Med: 9.70 E/E' Lat: 8.10 PHT: 69.00 MVA PHT: 3.19 Decel Knox: 3.77 Aortic Valve AoV Pk Alfredo: 1.24 AoV Mn Alfredo: 0.90 AoV VTI: 0.26 AoV Pk Grad: 6.00 Aov Mn Grad: 4.00 YENNIFER Cont.VTI: 2.44 LVOT LVOT Pk Alfredo: 0.86 LVOT Mn Alfredo: 0.59 LVOT VTI: 0.18 LVOT Pk Grad: 3.00 LVOT Mn Grad: 2.00 LVOT Diam: 2.10 LVOT Area: 3.46 Diastolic Function MV Pk E: 0.89 MV Pk A: 0.62 E/A: 1.40 E'Medial: 9.14 E/E' Med: 9.70 E' Laterial: 11.00 E/E' Lat: 8.10 Right Ventricle TAPSE (mm): 28.10 TVS' Alfredo: 13.80 Tricuspid Valve RA Press: 3.00 Great Vessels Aorta Sinus of Valsalva: 3.25 2.0-3.[address] Ridge: 2.56 1.7-3.4 cm Ao Asc: 2.70 2.1-3.4 cm Ao Arch: 2.30 Updated in Other Vendor System with Status of Final Attila Ross MD electronically signed on 07/06/2023 12:48:38 PM with status of Final
== END ==
LOC: HO.CARD 14:15
PROVIDERS: PCP Registered Nurse; Visit Provider Internal Medicine Cardiovascular Disease
DX: I49.3 Ventricular premature depolarization (principal)
CPT/HCPCS: 93225; 93306; 93356

== ENCOUNTER → 2023-07-05 14:18 | Outpatient (BNV) | payer OTHER, SELFPAY | PROVIDERS: PCP Registered Nurse; Visit Provider Internal Medicine Cardiovascular Disease | DX: I49.3 Ventricular premature depolarization (principal) | CPT/HCPCS: 93227; 93306 ==

== ENCOUNTER 2023-07-19 14:53 | Outpatient (AMB) | payer OTHER, SELFPAY ==
[2023-07-19 15:07] VITALS: BP 114/84; PULSE 80; BMI 32.5
--- NOTE | 2023-07-19 15:07 | MHC.OFFVIS ---
Intake Vital Signs 07/19/23 15:07 Height 5 ft 7 in Weight 207 lb 3.752 oz BMI 32.5 BP 114/84 Blood Pressure Location Lt brachial Position Sitting Pulse 80 Pulse Source Monitor Intake Visit Reasons: r/s 1 year followup after testing Medical Detail Representative Required: Yes Medical Detail Representative Language: Technology Lab Teacher Name: ansley yu [id number] Allergies dextran sulfate Adverse Reaction (Verified 07/19/23 15:09) Unknown Medication List - Last Reconciled 07/19/23 by Elizabeth Fonseca NP-C acetaminophen (Tylenol Extra Strength) 500 mg PO Q6H PRN ascorbate calcium (vitamin C) 500 mg PO BID atorvastatin 80 mg PO DAILY cyclobenzaprine 10 mg PO BEDTIME PRN dapagliflozin propanediol (Farxiga) 10 mg PO QAM hydroxyzine HCl 50 mg PO TID PRN losartan 25 mg PO DAILY metformin 1,000 mg PO BID metoprolol succinate ER 75 mg (1.5 x 50 mg) PO QAM 90 days naproxen 500 mg PO BID PRN 10 days omega 9-lme-msr-fish oil 300 mg (120 mg- 180mg)-1,000 mg 1 cap PO DAILY oxcarbazepine 0 mg PO paroxetine HCl 20 mg PO DAILY HPI r/s 1 year followup after testing HPI Details Michelle is a 38-year-old female with past medical history of hyperlipidemia, diabetes, frequent PVCs who presents for follow-up after recent echocardiogram and Holter monitor. Today she reports that she still feels heart palpitations daily but they are mostly not bothersome to her. She notices it more when she is hungry. It does not limit her ability to do activities. No chest discomfort at rest or with activity. No shortness of breath, lightheadedness, presyncope, syncope, PND, orthopnea or edema. She takes her medication as directed. [facility] Medical History PVC (premature ventricular contraction) Arthritis Abnormal uterine bleeding Cardiac arrhythmia Scoliosis Fibromyalgia Carpal tunnel syndrome Panic attacks High cholesterol Type 2 diabetes mellitus Surgical History Hx of esophagogastroduodenoscopy Hx of colonoscopy H/O excision of mass Tubal ligation status S/P repair of ventral hernia (~11/2017) H/O excision of mass Previous section Myxoinflammatory fibroblastic sarcoma (~08/2017) Family History Father History of stroke History of prostate cancer Mother History of breast cancer History of diabetes mellitus History of cardiovascular disorder Social History Household Members: Spouse and Children Housing: Apartment Alcohol intake: former Patient Tobacco Use Status: Current everyday Tobacco user Tobacco use type: Cigarette Cigarettes Per Day: 6 Years Smoked: 15 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 Sexual orientation: Straight/Heterosexual Gender identity: Female Female Reproductive History Menstrual Age of Menarche: 10 Review of Systems Const All systems reviewed & are unremarkable except as noted in HPI and below ENT Denies dizziness Card Details: Palpitations Denies chest pain, Denies chest pain at rest, Denies chest pain with activity, Denies rapid heart rate, Denies pedal edema, Denies edema, Denies leg edema, Denies lightheadedness, Denies palpitations, Denies dyspnea, Denies dyspnea on exertion and Denies orthopnea Resp Denies cough, Denies dyspnea and Denies dyspnea on exertion GI Denies hematochezia and Denies change in stool character Musc Denies abnormal gait, Denies limited range of motion, Denies muscle cramps, Denies muscle weakness, Denies numbness, Denies radiating pain into limb, Denies stiffness and Denies tingling Neuro Denies abnormal gait, Denies dizziness, Denies numbness and Denies tingling Endo Denies palpitations Physical Exam Vital Signs: Last Vital Signs Pulse 80 07/19/23 15:07 BP 114/84 07/19/23 15:07 BMI result Body Mass Index 32.5 Const General: cooperative, healthy appearing, comfortable and no acute distress Orientation/consciousness: patient oriented x3 Neck Neck: Yes normal visual inspection and Yes no JVD Resp Effort & Inspection: normal respiratory effort Auscultation: clear to auscultation bilaterally, no crackles, no rales, no rhonchi and no wheezes Cardio Jugular venous distension: no JVD Rate: regular rate Rhythm: abnormal rhythm Heart sounds: S1 normal heart sound present, S2 normal heart sound present, no murmurs and no rubs Neuro General: patient oriented x3 Extrem General: Yes normal to inspection, No no pedal edema and No calf tenderness Psych Appearance: grossly normal Mental Status: mental status grossly normal Speech and movement: Normal speech and movement present Office Procedures EKG Details: Today, read by me, sinus rhythm with frequent PVCs can not exclude anterior infarct, rate 80, QTC 456 milliseconds [id number], Complete Assessment & Plan Assessment & Plan (1) PVC (premature ventricular contraction): Code(s): I49.3 - Ventricular premature depolarization Plan: History of frequent PVCs. She feels them as daily heart palpitations, currently not bothersome. She has been on metoprolol to help suppress PVC burden. An echocardiogram done 07/05/2023 shows normal study, EF 60-65%. Holter monitor done 07/05/2023 for 2 days shows sinus rhythm with frequent PVCs, 9.3%. Today she reports that she has been taking only metoprolol 50 mg daily. Her prior dose had been 75 mg daily. Instructed her to increase her dose back to 1.5 tablets, 75 mg daily. Reviewed the reduction in caffeinated beverages. Continue exercise/activity as tolerated. Cardiology follow-up in 1 year, sooner if needed (2) Palpitation: Code(s): R00.2 - Palpitations Plan: As above Plan Time spent on chart review, documentation, interview and assessment Coding Level of Care Code Est Pt Level 3 (72844) Diagnoses PVC (premature ventricular contraction) I49.3 Palpitation R00.2 CPT Codes EKG - CPT: 83903-[id number], Complete ([id number]) Time Spent (min) 24
== END 2023-07-19 15:42 | disposition home or self-care (01) ==
PROVIDERS: PCP Registered Nurse; Visit Provider Nurse Practitioner Family
DX: I49.3 Ventricular premature depolarization (principal); R00.2 Palpitations
CPT/HCPCS: 93010; 99213

== ENCOUNTER → 2023-07-19 14:53 | Outpatient (BNVA) | payer OTHER, SELFPAY | PROVIDERS: PCP Registered Nurse; Visit Provider Nurse Practitioner Family | DX: I49.3 Ventricular premature depolarization (principal); R00.2 Palpitations; Z79.899 Other long term (current) drug therapy | CPT/HCPCS: 93005 ==

== ENCOUNTER 2023-12-09 21:23 | Emergency (ER) | payer OTHER, SELFPAY ==
--- NOTE | 2023-12-09 21:25 | ECG_ITS ---
Test Reason : CHEST PAIN Blood Pressure : / mmHG Vent. Rate : 074 BPM Atrial Rate : 074 BPM P-R Int : 168 ms QRS Dur : 090 ms QT Int : 402 ms P-R-T Axes : 054 -08 012 degrees QTc Int : 446 ms Normal sinus rhythm Minimal voltage criteria for LVH, may be normal variant ( R in aVL ) Abnormal ECG When compared with ECG of 18-APR-2021 21:50, No significant change was found Referred By: Generic ED Physician Electronically Signed By:Ovi Etienne
[2023-12-09 21:32] VITALS: BP 148/87; PULSE 75; RESP 18; TEMP 36.7; O2SAT 98; BMI 32.3
--- NOTE | 2023-12-09 21:43 | PC.NURSE ---
During assessment, pt stating she is having dental pain radiating down jaw, neck. Adjusted CC for accuracy of complaint.
[2023-12-09 21:54] LABS: MANUAL DIFF FLAG NO
[2023-12-09 21:55] LABS: Basophils Absolute Auto 0.1 X10*3/uL (0.0-0.2); Basophils Percent Auto 0.9 % (0-2); Eosinophils Absolute Auto 0.5 X10*3/uL (0.0-0.4); Eosinophils Percent Auto 5.4 % (0-4); Hematocrit 33.1 % (37.0-47.0); Hemoglobin 11.1 g/dl (12.0-16.0); Imm Gran Abs Auto 0.01 X10*3/uL (0.00-0.03); Imm Gran Pct Auto 0.1 % (0.0-0.4); Lymphocytes Percent Auto 42.1 % (20-40); Mean Corpuscular HGB Conc 33.5 g/dl (31.0-35.0); Mean Corpuscular Volume 77.5 fL (80.0-98.0); Mean Platelet Volume 9.8 fL (9.4-12.3); Monocytes Absolute Auto 0.8 X10*3/uL (0.1-1.2); Neutrophils Absolute Auto 4.1 x10*3/uL (2.0-8.3); Neutrophils Percent Auto 43.5 % (45-73); Platelet Count 352 X10*3/uL (160-400); Red Blood Count 4.27 X10*6/uL (4.20-5.50); White Blood Count 9.4 X10*3/uL (4.8-10.8)
--- NOTE | 2023-12-09 21:59 | ED.CHESTPAIN ---
HPI - Chest Pain General Chief Complaint: Dental/Oral Stated Complaint: tooth pain, chest pain Time Seen by Provider: 12/09/23 21:57 Source: patient Mode of arrival: ambulatory Limitations: language barrier History of Present Illness ED Provider: Dr. Harshil Green HPI narrative: 38-year-old female with a history of fibromyalgia, panic attacks, high cholesterol, diabetes mellitus who presents emergency department for evaluation of left facial pain that radiates to her jaw and chest. Patient states she broke a molar on her lower jaw 2 months prior. She states that over the last 2 days she has had pain in her mouth and lower jaw. She states the pain is now spreading up her face and down to her chest. She states the pain is greater than 10/10. She states that her face is swollen. She denied fever or chills. She denied shortness of breath, pain radiating to her arms or back. Related Data Home Medications ?Medication ?Instructions ?Recorded ?Confirmed ascorbate calcium (vitamin C) 500 500 mg PO BID 02/18/20 07/19/23 mg tablet metformin 1,000 mg tablet 1,000 mg PO BID 02/18/20 07/19/23 losartan 25 mg tablet 25 mg PO DAILY 09/27/20 07/19/23 atorvastatin 80 mg tablet 80 mg PO DAILY 06/15/22 07/19/23 cyclobenzaprine 10 mg tablet 10 mg PO BEDTIME PRN 06/15/22 07/19/23 hydroxyzine HCl 50 mg tablet 50 mg PO TID PRN anxiety 06/15/22 07/19/23 omega-3 300 mg-dha 120 mg-epa 180 1 cap PO DAILY 06/15/22 07/19/23 mg-fish oil 1,000 mg capsule oxcarbazepine 300 mg tablet 0 mg PO 06/15/22 07/19/23 paroxetine HCl 20 mg tablet 20 mg PO DAILY 06/15/22 07/19/23 dapagliflozin propanediol 10 mg 10 mg PO QAM 10/24/22 07/19/23 tablet (Farxiga) Previous Rx's ?Medication ?Instructions ?Recorded acetaminophen 500 mg tablet 500 mg PO Q6H PRN pain or fever 08/19/20 (Tylenol Extra Strength) #20 tabs naproxen 500 mg tablet 500 mg PO BID PRN pain 10 days #20 08/19/20 tabs metoprolol succinate 50 mg 75 mg (1.5 x 50 mg) PO QAM 90 days 02/12/23 tablet,extended release 24 hr #135 tabs acetaminophen 500 mg tablet 1,000 mg (2 x 500 mg) PO Q6H PRN 12/09/23 (Tylenol Extra Strength) fever or pain #20 tabs ibuprofen 400 mg tablet 400 mg PO TID PRN fever or pain 12/09/23 #30 tabs morphine 15 mg immediate release 15 mg PO Q6H PRN pain #10 tabs 12/09/23 tablet Allergies Allergy/AdvReac Type Severity Reaction Status Date / Time dextran sulfate AdvReac Unknown Verified 12/09/23 21:35 Review of Systems Review of Systems: Yes all other systems are reviewed and are negative [facility] Past Medical History Medical History PVC (premature ventricular contraction) Arthritis Abnormal uterine bleeding Cardiac arrhythmia Scoliosis Fibromyalgia Carpal tunnel syndrome Panic attacks High cholesterol Type 2 diabetes mellitus Surgical History Hx of esophagogastroduodenoscopy Hx of colonoscopy H/O excision of mass Tubal ligation status S/P repair of ventral hernia (~11/2017) H/O excision of mass Previous section Myxoinflammatory fibroblastic sarcoma (~08/2017) Family History Family History Father History of stroke History of prostate cancer Mother History of breast cancer History of diabetes mellitus History of cardiovascular disorder Social History Social History Household Members: Spouse and Children Housing: Apartment Alcohol intake: former Patient Tobacco Use Status: Current everyday Tobacco user Tobacco use type: Cigarette Cigarettes Per Day: 6 Years Smoked: 15 Smoked in Last 30 Days: Yes Use of substances other than those prescribed or required for medical reasons: No Advance Directives: No Advance Directives Information Provided: No Patient : No 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 Sexual orientation: Straight/Heterosexual Gender identity: Female Physical Exam Vital Signs: Vital Signs: Last Vital Signs Temp 98.1 F 12/09/23 21:32 Pulse 75 12/09/23 21:32 Resp 18 12/09/23 21:32 BP 148/87 H 12/09/23 21:32 Pulse Ox 98 12/09/23 21:32 O2 Del Method Room Air 12/09/23 21:32 BMI result Body Mass Index 32.3 Vital signs revealed an elevated blood pressure of 140/87 otherwise unremarkable Exam: General: Awake, alert, in distress secondary to jaw pain Head: Normocephalic, atraumatic, patient does have left-sided facial swelling over her lower jaw with tenderness palpation of this area Mouth: Patient has feelings in her lower teeth #17 and 18-very tender with palpation over these teeth, no gingival swelling or obvious abscess on the inside her mouth Neck: Supple, no adenopathy Lung: breath sounds symmetric, no wheezing, rales or rhonchi Chest: symmetric movement, nontender Heart: regular rate and rhythm, normal S1, S2 no murmurs or rubs Abdomen: soft, non-tender, nondistended, normal bowel sounds Back: no vertebral tenderness, no CVAT Extremities: no deformities, moves all extremities symmetrically Neuro: Awake, alert, oriented, normal speech, cranial nerves intact, moves all extremities symmetrically Psych: Pleasant, cooperative Medications Administered Discontinued Medications Generic Name Dose Route Start Last Admin Trade Name Freq PRN Reason Stop Dose Admin Amoxicillin 1,000 mg 12/09/23 22:13 12/09/23 22:18 Amoxicillin 500 Mg Capsule PO 12/09/23 22:14 1,000 mg ONCE ONE Administration Morphine Sulfate 4 mg 12/09/23 22:13 12/09/23 22:18 Morphine Sulfate 4 Mg/Ml Cartridge IVPUSH 12/09/23 22:14 4 mg ONCE STA Administration Protocol Ondansetron HCl 4 mg 12/09/23 22:16 12/09/23 22:18 Ondansetron Hcl 4 Mg/2 Ml Vial IVPUSH 12/09/23 22:17 4 mg ONCE ONE Administration Medical Decision Making Medical Decision Making [facility] Narrative: 38-year-old female with a history of fibromyalgia, panic attacks, high cholesterol, diabetes mellitus who presents emergency department for evaluation of left facial pain that radiates to her jaw and chest. Patient states she broke 1 of her lower molars 2 months prior and developed pain in this area for tooth today with facial swelling and pain that radiates to the back of her jaw and to her chest. Vital signs revealed elevated blood pressure. Exam did reveal tenderness with palpation of teeth 17 and 18 with no gingival swelling or abscess. Patient had no chest wall tenderness. Differential diagnosis: ?Includes but is not limited to myocardial infarction, myocardial ischemia, costochondritis, chest wall pain, dental caries, dental infection, dental abscess Following evaluation was ordered: CBC, CMP, troponin, 12 EKG Patient was initially treated with the following: Cardiac monitoring, morphine 4 mg IV, Zofran 4 mg IV and amoxicillin 1000 mg orally Course: 23:26 My interpretation patient's laboratory evaluation as follows: WBC was normal 9400 with a normal differential, microcytic anemia with an H&H of 11.1 and 31.1, MCV 77.4-this is chronic. Glucose elevated 117. Troponin was below detectable limits. Patient's 12 EKG was also unremarkable Patient's chest pain is most likely referred pain from her dental pain. The patient did feel better after the above treatment. The patient was prescribed ibuprofen 400 mg every 6 hours as needed for pain, Tylenol 1000 mg every 6 hours as needed for pain and for pain not relieved by these medications she was prescribed morphine 15 mg every 6 hours as needed for pain. She was also given a prescription for amoxicillin 1000 mg 3 times a day for 5 days for her dental infection. She was advised to follow up with her dentist for re-evaluation. She was given printed and verbal instructions and discharged home. Admission/Observation Consideration of admission/observation: Escalation of care including admission/observation considered Lab Data MDM Lab Attestation statement: I reviewed the patient's lab results. 12/09/23 21:50 12/09/23 21:50 Labs: Lab Results 12/09/23 Range/Units 21:50 WBC 9.4 (4.8-10.8) X10*3/uL RBC 4.27 (4.20-5.50) X10*6/uL Hgb 11.1 L (12.0-16.0) g/dl Hct 33.1 L (37.0-47.0) % MCV 77.5 L (80.0-98.0) fL MCH 26.0 L (27.0-33.0) pg MCHC 33.5 (31.0-35.0) g/dl RDW 15.0 (11.0-16.0) % Plt Count 352 (160-400) X10*3/uL MPV 9.8 (9.4-12.3) fL Immature Gran % (Auto) 0.1 (0.0-0.4) % Neut % (Auto) 43.5 L (45-73) % Lymph % (Auto) 42.1 H (20-40) % Mercer % (Auto) 8.0 (2-11) % Eos % (Auto) 5.4 H (0-4) % Baso % (Auto) 0.9 (0-2) % Lymph # (Auto) 4.0 (1.2-4.9) X10*3/uL Mercer # (Auto) 0.8 (0.1-1.2) X10*3/uL Eos # (Auto) 0.5 H (0.0-0.4) X10*3/uL Baso # (Auto) 0.1 (0.0-0.2) X10*3/uL Abs Immat Gran (auto) 0.01 (0.00-0.03) X10*3/uL Absolute Neuts (auto) 4.1 (2.0-8.3) x10*3/uL Absolute Nucleated RBC 0.000 (0.0-0.012) X10*3/uL Nucleated RBC % (auto) 0.0 (0.0-0.2) /100WBC Sodium 140 (135-145) mmol/L Potassium 3.4 (3.3-5.1) mmol/L Chloride 105 (96-108) mmol/L Carbon Dioxide 23 (22-29) mmol/L Anion Gap 15 (12-20) BUN 8 L (9-16) mg/dL Creatinine 0.71 (0.5-1.4) mg/dL Estim Creat Clear Calc 124.9 Estimated GFR > 60 Random Glucose 117 H (60-115) mg/dL Calcium 8.9 D (8.4-10.2) mg/dL Total Bilirubin 0.1 (0.0-1.0) mg/dL AST 18 (5-31) U/L ALT 17 (0-31) U/L Alkaline Phosphatase 36 L (39-117) U/L Troponin I High Sens < 2.7 (<3.5-17.0) ng/L Total Protein 7.0 (6.5-8.0) g/dL Albumin 4.6 (3.5-5.0) g/dL Independent Interpretation I performed an independent interpretation of an: EKG Interpretation: My independent interpretation patient's 12 EKG done at 21:21 hours is as follows: Normal sinus rhythm rate of 74, normal GA interval, QRS duration QTC interval, Q-wave in lead 3 and V3, inverted T-wave lead 3, V1 no ST segment elevation, no ST segment depression, no PACs, no PVCs. Compared to EKG dated 04/18/2022 Q-wave lead 3 is old but the Q-wave in V 3 is new. Inverted T-waves were seen on the previous EKG. Independent Historian Clinical information obtained from an independent historian. History obtained from or confirmed by: Spouse Prescription Management I considered prescription management with: Pain Medication and Antibiotic Chronic Conditions Patient?s care impacted by: Other (Hyperlipidemia) Discharge Plan Discharge Clinical Impression: Dental infection, Jaw pain, Chest pain Patient Disposition: Home, Self-Care Instructions: Dental Abscess (ED) Additional Instructions: Your laboratory evaluation was normal which is reassuring. Your EKG was normal. Your symptoms are caused by an infection of your broken tooth. Take amoxicillin 500 mg pills, 2 pills every 6 hours (3 times a day) for 5 days Take ibuprofen 400 mg pills, 1 pills every 6 hours as needed for pain. Take Tylenol (acetaminophen) 2 pills every 6 hours as needed for pain. For pain not relieved by ibuprofen or Tylenol take morphine 15 mg pills, 1 pill every 6 hours as needed for pain. This medication will make you sleepy, do not drive or work while taking this medication. Morphine is a narcotic medication and can be addicting. If you are concerned about addiction you can ask the pharmacist for less pills or do not get this prescription filled. Follow-up with your doctor in 2 days. Please return to the emergency department if your symptoms get worse or if you develop any symptoms that are concerning to you. Prescriptions: New acetaminophen [Tylenol Extra Strength] 500 mg tablet 1,000 mg PO Q6H PRN (Reason: fever or pain) Qty: 20 0RF ibuprofen 400 mg tablet 400 mg PO TID PRN (Reason: fever or pain) Qty: 30 0RF morphine 15 mg tablet 15 mg PO Q6H PRN (Reason: pain) Qty: 10 0RF Rx Instructions: The patient may ask for partial fill; Partial Fill upon patient request. No Action metoprolol succinate 50 mg tablet extended release 24 hr 75 mg PO QAM 90 Days Qty: 135 3RF acetaminophen [Tylenol Extra Strength] 500 mg tablet 500 mg PO Q6H PRN (Reason: pain or fever) Qty: 20 0RF naproxen 500 mg tablet 500 mg PO BID PRN (Reason: pain) 10 Days Qty: 20 0RF losartan 25 mg tablet 25 mg PO DAILY ascorbate calcium (vitamin C) 500 mg tablet 500 mg PO BID metformin 1,000 mg tablet 1,000 mg PO BID oxcarbazepine 300 mg tablet 0 mg PO paroxetine HCl 20 mg tablet 20 mg PO DAILY atorvastatin 80 mg tablet 80 mg PO DAILY omega 3-amt-pkp-fish oil 300 mg (120 mg- 180mg)-1,000 mg capsule 1 cap PO DAILY cyclobenzaprine 10 mg tablet 10 mg PO BEDTIME PRN hydroxyzine HCl 50 mg tablet 50 mg PO TID PRN (Reason: anxiety) Farxiga 10 mg tablet 10 mg PO QAM Print Language: [place]
[2023-12-09 22:08] LABS: Alanine Aminotransferase 17 U/L (0-31); Albumin Level 4.6 g/dL (3.5-5.0); Alkaline Phosphatase 36 U/L (39-117); Anion Gap 15 (12-20); Aspartate Amino Transferase 18 U/L (5-31); Bilirubin Total 0.1 mg/dL (0.0-1.0); Blood Urea Nitrogen 8 mg/dL (9-16); Calcium 8.9 mg/dL (8.4-10.2); Carbon Dioxide 23 mmol/L (22-29); Chloride 105 mmol/L (96-108); Creatinine Clr Calc Pharmacy 124.9; Estimated Glomerular Filt Rate > 60; Glucose Random 117 mg/dL (60-115); Potassium 3.4 mmol/L (3.3-5.1); Sodium 140 mmol/L (135-145)
[2023-12-09] MEDS: Morphine Sulfate 4 MG/ML CARTRIDGE IVPUSH (22:18)
[2023-12-09] MEDS: ondansetron HCL 4 MG/2 ML VIAL IVPUSH (22:18)
[2023-12-09] MEDS: Amoxicillin 500 MG CAPSULE 1000 MG PO (22:18)
[2023-12-09 22:50] LABS: Troponin-I High Sensitivity < 2.7 ng/L (<3.5-17.0)
[2023-12-10 01:01] VITALS: BP 122/68; PULSE 78; RESP 19; TEMP 36.7; O2SAT 98
== END 2023-12-10 01:02 | disposition home or self-care (01) ==
PROVIDERS: Emergency Provider Emergency Medicine Emergency Medical Services
DX: K04.7 Periapical abscess without sinus (principal); K08.89 Other specified disorders of teeth and supporting structures; R07.89 Other chest pain; M79.7 Fibromyalgia; R68.84 Jaw pain; Z79.899 Other long term (current) drug therapy
CPT/HCPCS: 36415; 80053; 84484; 85025; 93005; 96374; 96375; 99284; J2270; J2405

== ENCOUNTER → 2023-12-09 21:25 | Outpatient (BNV) | payer OTHER, SELFPAY | PROVIDERS: Emergency Provider Emergency Medicine Emergency Medical Services; Visit Provider Internal Medicine Cardiovascular Disease | DX: R94.31 Abnormal electrocardiogram [ECG] [EKG] (principal) | CPT/HCPCS: 93010 ==

== ENCOUNTER 2023-12-18 10:21 | Outpatient (AMB) | payer OTHER, SELFPAY ==
[2023-12-18 10:25] VITALS: BMI 32.3
--- NOTE | 2023-12-18 10:25 | A.OFFVIS_ITS ---
Vital Signs 12/18/23 10:25 Height 5 ft 7 in Weight 206 lb BMI 32.3 Intake Visit Reasons: ov- Right Hand 3rd digit pain Intake Note: Michelle 38 year old right hand dominant female presents today for a follow up visit for the right middle finger. Patient was last seen 03/13/[address] Reyes, where she was signed up for surgery however, surgery was not done. Patient states she would like to discuss other treatment options prior to scheduling surgery. 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 Corporate Banking Officer Required: Yes Corporate Banking Officer Language: Tool Adjuster Services: Corporate Banking Officer Present Corporate Banking Officer Name: ObedRUIZ/YULI Information Interpreted: clinical only Allergies dextran sulfate Adverse Reaction (Verified 12/18/23 10:25) Unknown HPI HPI ov- Right Hand 3rd digit pain: Details: Michelle is a 38 year old right hand dominant woman who returns for a follow-up of her right middle trigger finger. She was last seen on 03/13/23 and was signed up for surgery, but this did not happen. 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 [facility] Medical History PVC (premature ventricular contraction) Arthritis Abnormal uterine bleeding Cardiac arrhythmia Scoliosis Fibromyalgia Carpal tunnel syndrome Panic attacks High cholesterol Type 2 diabetes mellitus Surgical History Hx of esophagogastroduodenoscopy Hx of colonoscopy H/O excision of mass Tubal ligation status S/P repair of ventral hernia (~11/2017) H/O excision of mass Previous section Myxoinflammatory fibroblastic sarcoma (~08/2017) Family History Father History of stroke History of prostate cancer Mother History of breast cancer History of diabetes mellitus History of cardiovascular disorder Social History Household Members: Spouse and Children Housing: Apartment Alcohol intake: former Patient Tobacco Use Status: Current everyday Tobacco user Tobacco use type: Cigarette Cigarettes Per Day: 6 Years Smoked: 15 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 Sexual orientation: Straight/Heterosexual Gender identity: Female Female Reproductive History Menstrual Age of Menarche: 10 Physical Exam Vital Signs: BMI result Body Mass Index 32.3 Extrem Other: Evaluation of Right Upper Extremity: The patient is alert, oriented, and in no acute distress Neuro: Median, Ulnar, Radial nerves motor and sensory intact and sensation is normal to the tips of all digits Vascular: Cap refill brisk ROM: She can make a fist and extend all her digits Visible locking and catching of the middle finger Tender over the a1 figueroa of the middle finger She has a large scar on her right volar mid-forearm after a sarcoma excision in 2019 Office Procedures Fracture Care Details: No fracture, injection Fracture Billing Code: Fracture Billing Code Assessment & Plan Assessment & Plan (1) Trigger finger, right middle finger: Code(s): M65.331 - Trigger finger, right middle finger Category: Medical Plan Assessment & Plan: 1. Right middle finger trigger finger I educated her about this condition I discussed operative and non-operative treatment options The patient would like to proceed with an injection today Injection #1: The risks and benefits of a steroid injection including but not limited to risk of damage to blood vessels, nerves, tendons, infection, skin bleaching, failure to improve symptoms, increased pain, and possible need for further injections or other intervention were discussed with the patient and the patient wishes to proceed with the steroid injection. Once consent was obtained, I sterilely prepped the area over the A1 figueroa of the flexor tendon sheath of the Right middle finger. I then injected the flexor tendon sheath with a combination of 1 mL of dexamethasone (4mg/ml), and 1% lidocaine. The patient tolerated the procedure well with no complications. She will make an appointment for sometime in late January if still symptomatic to discuss possible surgical intervention. 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 She may cancel this if her triggering resolves following her injection. 2. Right index finger pain Dorsal aspect of the 2nd MCP joint Following a dog bite in 10/2022 Resolved Scribed for Galina Reyes MD by Rodrigo Jane lpn or medical assistant, on 12/18/23 at 10:40 AM, EST. Coding Level of Care Code Est Pt Level 3 (42453) Diagnoses Trigger finger, right middle finger M65.331 CPT Codes Fracture Care - Fracture Billing Code: Fracture Billing Code ([id number])
== END 2023-12-18 11:22 | disposition home or self-care (01) ==
PROVIDERS: PCP Registered Nurse; Visit Provider Orthopaedic Surgery
DX: M65.331 Trigger finger, right middle finger (principal)
CPT/HCPCS: 20550; 99213

== ENCOUNTER → 2023-12-18 10:21 | Outpatient (BNVA) | payer OTHER, SELFPAY | PROVIDERS: PCP Registered Nurse; Visit Provider Orthopaedic Surgery | DX: M65.331 Trigger finger, right middle finger (principal) | CPT/HCPCS: 20550; J1100 ==

== ENCOUNTER 2023-12-31 08:30 | Outpatient (REF) | payer OTHER, SELFPAY ==
[2023-12-31 11:39] LABS: MANUAL DIFF FLAG NO
[2023-12-31 11:52] LABS: Basophils Absolute Auto 0.1 X10*3/uL (0.0-0.2); Eosinophils Absolute Auto 0.2 X10*3/uL (0.0-0.4); Eosinophils Percent Auto 3.5 % (0-4); Hematocrit 36.2 % (37.0-47.0); Hemoglobin 11.3 g/dl (12.0-16.0); Imm Gran Abs Auto 0.02 X10*3/uL (0.00-0.03); Imm Gran Pct Auto 0.3 % (0.0-0.4); Lymphocytes Absolute Auto 2.6 X10*3/uL (1.2-4.9); Lymphocytes Percent Auto 37.5 % (20-40); Mean Corpuscular HGB Conc 31.2 g/dl (31.0-35.0); Mean Corpuscular Hemoglobin 24.6 pg (27.0-33.0); Mean Corpuscular Volume 78.9 fL (80.0-98.0); Mean Platelet Volume 10.7 fL (9.4-12.3); Monocytes Absolute Auto 0.4 X10*3/uL (0.1-1.2); Monocytes Percent Auto 5.9 % (2-11); Neutrophils Absolute Auto 3.5 x10*3/uL (2.0-8.3); Neutrophils Percent Auto 51.8 % (45-73); Platelet Count 415 X10*3/uL (160-400); Red Blood Count 4.59 X10*6/uL (4.20-5.50); Red Cell Distribution Width 15.1 % (11.0-16.0); White Blood Count 6.8 X10*3/uL (4.8-10.8)
[2023-12-31 11:59] LABS: Rheumatoid Factor < 13.0 IU/mL (<15.0)
[2023-12-31 12:16] LABS: C Reactive Protein 0.15 mg/dL (< or = 0.50)
[2023-12-31 12:19] LABS: HIV AB/AG Nonreactive (Nonreactive); HIV Num 1 0.04 S/CO (0.00-0.99)
[2023-12-31 12:21] LABS: Syphilis Screen Nonreactive (Nonreactive)
[2023-12-31 12:23] LABS: T4 Thyroxine 4.4 ug/dL (4.5-12.0); Thyroid Stimulating Hormone 0.95 uIU/mL (0.32-4.0)
[2023-12-31 12:26] LABS: Erythrocyte Sedimentation Rate 9 MM/HR (0-20)
[2024-01-02 15:44] LABS: Anti Nuclear Antibody Screen NEGATIVE (NEGATIVE)
[2024-01-02 21:58] LABS: Lyme Abs Screen <0.90 index
[2024-01-02 23:33] LABS: TS Negative Control Passed; TS Panel A 0; TS Panel B 0; TS Positive Control Passed; TSpotTB Negative (Negative)
[2024-01-03 09:53] LABS: Rubella IgG Antibody <0.90 Index
== END 2023-12-31 08:31 | disposition home or self-care (01) ==
LOC: HO.HHCL 08:30
PROVIDERS: Visit Provider Ophthalmology
DX: H05.119 Granuloma of unspecified orbit (principal)
CPT/HCPCS: 36415; 84436; 84439; 84443; 85025; 85652; 86038; 86140; 86431; 86481; 86617; 86618; 86762; 86780; 87389

== ENCOUNTER 2024-03-11 15:37 | Outpatient (AMB) | payer OTHER, SELFPAY ==
--- NOTE | 2024-03-11 15:51 | MHC.OFFVIS ---
Vital Signs 03/11/24 15:56 Height 5 ft 7 in Weight 206 lb BMI 32.3 Intake Visit Reasons: OV- Right MF Trigger Intake Note: Michelle is a 38 year old right hand dominant female who presents today to discuss treatment options for a right middle finger trigger. Patient reports last injection done 12/18/23 was not helpful. She would like to discuss surgery today. Allergies dextran sulfate Adverse Reaction (Verified 03/11/24 15:57) Unknown HPI HPI OV- Right MF Trigger: Details: Michelle is a 38 year old right hand dominant Diabetic woman who returns for a follow-up of her right middle trigger finger, S/P injection on 12/18/23. She continues to complain of painful locking & catching of the middle finger. She says this often gets stuck down when she makes a fist. 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 would like to discuss surgery prior to [place], if possible [facility] Medical History PVC (premature ventricular contraction) Arthritis Abnormal uterine bleeding Cardiac arrhythmia Scoliosis Fibromyalgia Carpal tunnel syndrome Panic attacks High cholesterol Type 2 diabetes mellitus Surgical History Hx of esophagogastroduodenoscopy Hx of colonoscopy H/O excision of mass Tubal ligation status S/P repair of ventral hernia (~11/2017) H/O excision of mass Previous section Myxoinflammatory fibroblastic sarcoma (~08/2017) Family History Father History of stroke History of prostate cancer Mother History of breast cancer History of diabetes mellitus History of cardiovascular disorder Social History Household Members: Spouse and Children Housing: Apartment Alcohol intake: former Patient Tobacco Use Status: Current everyday Tobacco user Tobacco use type: Cigarette Cigarettes Per Day: 6 Years Smoked: 15 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 Sexual orientation: Straight/Heterosexual Gender identity: Female Female Reproductive History Menstrual Age of Menarche: 10 Review of Systems Const All systems reviewed & are unremarkable except as noted in HPI and below Physical Exam Vital Signs: BMI result Body Mass Index 32.3 Const General: no acute distress and alert Orientation/consciousness: patient oriented x3 Neuro General: patient oriented x3 Extrem Other: Evaluation of Right Upper Extremity: The patient is alert, oriented, and in no acute distress Neuro: Median, Ulnar, Radial nerves motor and sensory intact and sensation is normal to the tips of all digits Vascular: Cap refill brisk ROM: She can make a fist and extend all her digits Visible locking and catching of the middle finger Tender over the a1 figueroa of the middle finger She has a large scar on her right volar mid-forearm after a sarcoma excision in 2019 Psych Appearance: grossly normal Affect: normal affect Attitude: cooperative Assessment & Plan Assessment & Plan (1) Trigger finger, right middle finger: Code(s): M65.331 - Trigger finger, right middle finger Category: Medical Plan Assessment & Plan: 1. Right middle finger trigger finger Date of Injection: 12/18/23 I educated her about this condition Continued locking and catching after her injection, with no improvement I discussed operative and non-operative treatment options The patient would like to proceed with surgery The risks and benefits of operative treatment were discussed with the patient and the patient wishes to proceed with surgery. These risks include, but are not limited to risk of damage to blood vessels, nerves, tendons, infection, recurrence, incomplete relief of preoperative symptoms, persistent pain, possible need for further surgery and the risks associated with regional blocks and anesthesia. The plan is to take the patient to the operating room sometime in the next few weeks for the following procedures: 1. Right middle finger trigger release, under local All of the preoperative paperwork including the consent was reviewed today. All the patient's questions were answered. The patient understands that they will be contacted by our rayon coner soon to schedule this procedure. 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 She denies blood thinners, asthma, lung, kidney issues She has a Hx of CHF and is a Diabetic. She will need an updated HgA1c that is <8.1% in order to proceed with surgery, and they expressed understanding 2. Right index finger pain Dorsal aspect of the 2nd MCP joint Following a dog bite in 10/2022 Resolved Scribed for Galina Reyes MD by Rodrigo Jane, medical affairs manager, on 03/11/24 at 4:20 PM, EST. Scribe Plan - Not visible on output: Scribed for Galina Reyes MD by Rodrigo Jane, medical affairs manager, on [ ] at [ ], EST. Coding Level of Care Code Est Pt Level 4 (79975) Diagnoses Trigger finger, right middle finger M65.331
[2024-03-11 15:56] VITALS: BMI 32.3
== END 2024-03-11 18:10 | disposition home or self-care (01) ==
LOC: HO.HOS 15:37
PROVIDERS: PCP Registered Nurse; Visit Provider Orthopaedic Surgery
DX: M65.331 Trigger finger, right middle finger (principal)
CPT/HCPCS: 99214

== ENCOUNTER → 2024-03-11 15:37 | Outpatient (BNVA) | payer OTHER, SELFPAY | PROVIDERS: PCP Registered Nurse; Visit Provider Orthopaedic Surgery ==

== ENCOUNTER 2024-05-09 12:26 | Outpatient (REF) | payer OTHER, SELFPAY ==
[2024-05-09 13:01] LABS: MANUAL DIFF FLAG NO
[2024-05-09 13:10] LABS: Basophils Absolute Auto 0.1 X10*3/uL (0.0-0.2); Basophils Percent Auto 0.8 % (0-2); Eosinophils Absolute Auto 0.2 X10*3/uL (0.0-0.4); Eosinophils Percent Auto 2.8 % (0-4); Hematocrit 39.3 % (37.0-47.0); Hemoglobin 12.5 g/dl (12.0-16.0); Imm Gran Abs Auto 0.01 X10*3/uL (0.00-0.03); Imm Gran Pct Auto 0.1 % (0.0-0.4); Lymphocytes Percent Auto 35.4 % (20-40); Mean Corpuscular HGB Conc 31.8 g/dl (31.0-35.0); Mean Corpuscular Hemoglobin 25.6 pg (27.0-33.0); Mean Corpuscular Volume 80.4 fL (80.0-98.0); Monocytes Absolute Auto 0.6 X10*3/uL (0.1-1.2); Monocytes Percent Auto 7.7 % (2-11); Neutrophils Absolute Auto 4.5 x10*3/uL (2.0-8.3); Neutrophils Percent Auto 53.2 % (45-73); Platelet Count 315 X10*3/uL (160-400); Red Blood Count 4.89 X10*6/uL (4.20-5.50); Red Cell Distribution Width 15.7 % (11.0-16.0); White Blood Count 8.4 X10*3/uL (4.8-10.8)
[2024-05-09 13:15] LABS: Estimated Average Glucose 163 mg/dL; Hemoglobin A1C 185.0372 umol/L; Hemoglobin A1c % 7.3 % (<6.0)
[2024-05-09 13:55] LABS: Alanine Aminotransferase 31 U/L (0-31); Albumin Level 4.5 g/dL (3.5-5.0); Alkaline Phosphatase 36 U/L (39-117); Anion Gap 12 (12-20); Aspartate Amino Transferase 26 U/L (5-31); Bilirubin Total 0.3 mg/dL (0.0-1.0); Blood Urea Nitrogen 9 mg/dL (9-16); Calcium 9.4 mg/dL (8.4-10.2); Carbon Dioxide 28 mmol/L (22-29); Chloride 102 mmol/L (96-108); Estimated Glomerular Filt Rate > 60; Glucose Random 110 mg/dL (60-115); Potassium 3.9 mmol/L (3.3-5.1); Sodium 138 mmol/L (135-145); TSH reflex Free T4 2.34 uIU/mL (0.32-4.0); Total Protein 7.3 g/dL (6.5-8.0)
== END 2024-05-09 12:27 | disposition home or self-care (01) ==
LOC: HO.HHCL 12:26
PROVIDERS: Visit Provider Nurse Practitioner Family
DX: E11.65 Type 2 diabetes mellitus with hyperglycemia (principal)
CPT/HCPCS: 36415; 80053; 83036; 84443; 85025

== ENCOUNTER 2024-07-07 11:39 | Outpatient (REF) | payer OTHER, SELFPAY ==
--- NOTE | ~2024-07-07 | US_ITS ---
EXAMINATION: MM DIAGNOSTIC DIGITAL BREAST TOMOSYNTHESIS, BILATERAL Left breast ultrasound. CLINICAL INFORMATION: 39-year-old female with left breast pain and palpable lump and yellowish nipple discharge. COMPARISON: Mammography: Comparison is made with relevant prior exams. TECHNIQUE: Digital breast mammography with tomosynthesis is performed in both the craniocaudal and mediolateral oblique views along with computer-aided detection (CAD). Limited left breast ultrasound. FINDINGS: The breasts are heterogeneously dense, which may obscure small masses (ACR BI-RADS breast composition Category c). Right: There are no significant masses, abnormal calcifications, or other abnormalities. Left: Triangular palpable markers in the upper outer breast without underlying abnormality. No suspicious masses calcifications or other abnormal findings. Targeted color Doppler ultrasound scanning in the upper outer breast 11-4 o'clock demonstrates normal fibronodular breast tissue. Targeted color Doppler ultrasound scanning in the retroareolar region demonstrates normal fibroglandular breast tissue. Results are provided to the patient at time of visit by the technologist. US/US breast LT limited mamm only IMPRESSION: Right: Negative. Left: No mammographic or sonographic abnormality correlating with the patient's palpable lumps areas of pain and nipple discharge. Recommend clinical evaluation and follow-up. ASSESSMENT: BI-RADS BI-RADS 1 - Negative RECOMMENDATION: 1 year F/U This patient's information was entered into a reminder system with a target due date for their next mammogram. Electronically signed by: Jannette Marie DO 07/07/2024 12:43 PM VIN
== END 2024-07-07 11:40 | disposition home or self-care (01) ==
LOC: HO.MAMMO 11:39
PROVIDERS: PCP Nurse Practitioner Family; Visit Provider Nurse Practitioner Family
DX: N64.4 Mastodynia (principal)
CPT/HCPCS: 76642; 77062; 77066

== ENCOUNTER → 2024-07-07 11:45 | Outpatient (BNV) | payer OTHER, SELFPAY | PROVIDERS: PCP Nurse Practitioner Family; Visit Provider Internal Medicine | DX: R92.322 Mammographic fibroglandular density, left breast (principal); R92.333 Mammographic heterogeneous density, bilateral breasts | CPT/HCPCS: 76642; 77062; 77066 ==

== ENCOUNTER 2024-07-21 10:28 | Outpatient (AMB) | payer OTHER, SELFPAY ==
[2024-07-21 10:37] VITALS: BP 120/70; PULSE 71; BMI 32.1
--- NOTE | 2024-07-21 10:37 | A.OFFVIS_ITS ---
Vital Signs 07/21/24 10:37 Height 5 ft 7 in Weight 205 lb 0.478 oz BMI 32.1 BP 120/70 Blood Pressure Location Lt brachial Position Sitting Pulse 71 Intake Visit Reasons: 1 yr f/up Intake Note: 1 year follow-up with ekg feelng good Finishing Tunnel Operator Required: Yes Finishing Tunnel Operator Services: Finishing Tunnel Operator Present Finishing Tunnel Operator Name: rosey Allergies dextran sulfate Adverse Reaction (Verified 03/11/24 15:57) Unknown Medication List - Last Reconciled 07/21/24 by Attila Ross MD acetaminophen (Tylenol Extra Strength) 1,000 mg (2 x 500 mg) PO Q6H PRN ascorbate calcium (vitamin C) 500 mg PO BID atorvastatin 80 mg PO DAILY cyclobenzaprine 10 mg PO BEDTIME PRN dapagliflozin propanediol (Farxiga) 10 mg PO QAM hydroxyzine HCl 50 mg PO TID PRN ibuprofen 400 mg PO TID PRN losartan 25 mg PO DAILY metformin 1,000 mg PO BID metoprolol succinate ER 75 mg (1.5 x 50 mg) PO QAM 90 days morphine 15 mg PO Q6H PRN naproxen 500 mg PO BID PRN 10 days omega 3-imi-ltq-fish oil 300 mg (120 mg- 180mg)-1,000 mg 1 cap PO DAILY oxcarbazepine 300 mg PO DAILY paroxetine HCl 20 mg PO DAILY HPI Comments Details: Michelle comes for follow-up. History was obtained with help of joint terminal attack controller. Patient says the symptoms of palpitation have improved significantly. She does not have any other cardiac symptoms. No exertional chest pain or shortness of breath. No lightheadedness, syncope. Tolerating her medications well. She was also intensely participate in lifestyle modification and has had weight loss. She is overall feeling well [facility] Medical History PVC (premature ventricular contraction) Arthritis Abnormal uterine bleeding Cardiac arrhythmia Scoliosis Fibromyalgia Carpal tunnel syndrome Panic attacks High cholesterol Type 2 diabetes mellitus Surgical History Hx of esophagogastroduodenoscopy Hx of colonoscopy H/O excision of mass Tubal ligation status S/P repair of ventral hernia (~11/2017) H/O excision of mass Previous section Myxoinflammatory fibroblastic sarcoma (~08/2017) Family History Father History of stroke History of prostate cancer Mother History of breast cancer History of diabetes mellitus History of cardiovascular disorder Social History Household Members: Spouse and Children Housing: Apartment Alcohol intake: former Patient Tobacco Use Status: Current everyday Tobacco user Tobacco use type: Cigarette Cigarettes Per Day: 6 Years Smoked: 15 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 Sexual orientation: Straight/Heterosexual Gender identity: Female Female Reproductive History Menstrual Age of Menarche: 10 Review of Systems Const Denies chills, Denies fatigue, Denies fever(s), Denies frequent falls, Denies weakness, Denies weight gain and Denies weight loss ENT Denies dizziness Card Denies chest pain, Denies leg edema, Denies lightheadedness, Denies palpitations, Denies dyspnea, Denies dyspnea on exertion, Denies orthopnea and Denies other (loss of consciousness) Resp Denies cough, Denies dyspnea and Denies dyspnea on exertion GI Denies hematochezia and Denies change in stool character Musc Denies abnormal gait, Denies muscle weakness, Denies numbness, Denies radiating pain into limb and Denies tingling Neuro Denies abnormal gait, Denies dizziness, Denies frequent falls, Denies numbness, Denies tingling and Denies weakness Endo Denies fatigue and Denies palpitations Physical Exam Vital Signs: Last Vital Signs Pulse 71 07/21/24 10:37 BP 120/70 07/21/24 10:37 BMI result Body Mass Index 32.1 Const General: cooperative, healthy appearing, comfortable and no acute distress Orientation/consciousness: patient oriented x3 Neck Neck: Yes normal visual inspection and Yes no JVD Resp Effort & Inspection: normal respiratory effort Auscultation: clear to auscultation bilaterally, no crackles, no rales, no rhonchi and no wheezes Cardio Jugular venous distension: no JVD Rate: regular rate Rhythm: abnormal rhythm Heart sounds: S1 normal heart sound present, S2 normal heart sound present, no murmurs and no rubs Neuro General: patient oriented x3 Extrem General: Yes normal to inspection, No no pedal edema and No calf tenderness Psych Appearance: grossly normal Mental Status: mental status grossly normal Speech and movement: Normal speech and movement present Office Procedures EKG Details: EKG shows normal sinus rhythm with poor R-wave progression most likely lead placement 65240-[id number], Complete Assessment & Plan Assessment & Plan (1) PVC (premature ventricular contraction): Code(s): I49.3 - Ventricular premature depolarization Category: Medical Plan: Highly symptomatic PVCs with frequent PVC burden in the past with normal structure of the heart improved with metoprolol therapy. Symptoms have significantly improved. Advised to continue metoprolol therapy. Advised to avoid stimulants. Advised to continue pursue aggressive lifestyle modification. Avoidance of stimulants was discussed. She understands agrees. Overall benign nature of isolated PVCs was discussed with her again. Will follow up in the clinic in 1 year's time, sooner p.r.n.. Coding Level of Care Code Est Pt Level 3 (35892) Complex EM visit Add On G2211 Diagnoses PVC (premature ventricular contraction) I49.3 CPT Codes EKG - CPT: 66879-[id number], Complete ([id number])
--- OUTSIDE RECORDS SUMMARY | 2024-07-21 11:49 | XMS_ITS | Encounter Summary ---
Author Organization [employer] [facility] Address [address] [place] [address] Care Team Providers Care X Ray Electronics Wireman Name Role Phone Tania Heck Primary Care Provider [phone] Nargis Alvarenga INDUSTRIAL GAS PRODUCTION OPERATOR Primary Care Provider [phone] Dahlia Murphy NP Primary Care Provider [phone] Reason for Visit * Reason Comments Med Refill Encounter Details Date Type Department Care Team (Late st Contact Info) Description 04/19/2022 Refill [facility] MED[facility] [address] [place] [address] Tania Heck FNP [address] [place] [address] Dept [place] [address] Social History Tobacco Use Types Packs/Day Years Used Date Smoking Tobacco: Never Assessed Comments Unknown Sex and Gender Information Value Date Recorded Sex Assigned at Female 03/13/2022 10:33 AM EDT Legal Sex Female 10:33 AM EDT Gender Identity Female 03/13/2022 10:33 AM EDT Sexual Orientation Straight 03/13/2022 10 :33 AM EDT documented as of this encounter Plan of Treatment Upcoming Encounters Date Type Department Care Team (Late st Contact Info) Description 08/01/2024 3:15 PM EDT Office Visit [facility] [address] [place] [address] Dahlia Murphy NP [address] [place] [address] documented as of this encounter Visit Diagnoses Not on filedocumented in this encounter Care Teams [employer] Wireman Relationship Specialty Start Date End Date Tania Heck FNP PCP - General Family Medicine 03/07/21 02/15/23 Nargis Alvarenga NP [address] [place] [address] PCP - General Family Medicine 02/16/23 06/24/23 Dahlia Murphy NP [address] [place] [address] PCP - General Family Medicine 06/25/23 documented as of this encounter
--- OUTSIDE RECORDS SUMMARY | 2024-07-21 11:49 | XMS_ITS | Encounter Summary ---
Author Organization [employer] Address [address] [facility] 7t [place] [address] Care Team Providers Care Binder Technician Name Role Phone Dahlia Murphy NP Primary Care Provider [phone] Reason for Visit * Reason Comments Med Refill Encounter Details Date Type Department Care Team ([facility] st Contact Info) Description 06/24/2024 Refill [facility] & PEDS [address] [place] [address] Dahlia Murphy NP [address] [facility] [place] [address] Iron deficiency anemia due to chronic blood loss Social History Tobacco Use Types Packs/Day Years Used Date Smoking Tobacco: Every Day Cigarettes Smokeless Tobacco: Never Alcohol Use Standard Drinks/Week Comments Never 0 (1 standard drink = 0.6 oz pur e alcohol) Depression Answer Date Recorded Patient Health Questionnaire-9 Score 16 05/09/2024 Patient Health Questionnaire-9 Score 16 05/09/2024 Last PHQ-9: Questionnaire Data Not on file 1 07/10/2023 Housing Stability Answer Date Recorded What is your housing situation today? I have noah king 08/15/[address] you li ve. Do you have problems with any of the following? None of the above 08/15/2023 Food Insecurity Answer Date Recorded Within the past 12 months, y ou worried that your food would run out before you got money to buy more: Never True 08/15/2023 Within the past 12 months,th e food you bought just didn't last and you didn't have enough money to get more: Never True 04/ 07/2023 Transportation Answer Date Recorded In the past 12 months, has l ack of transportation kept you from medical appts, meetings, work or from getting things needed for daily living? No 08/15/2023 Utilities Answer Date Recorded In the past 12 months, has t he electric, gas, oil or water company threatened to shut off services in your home? No 08/15/2023 Depression Answer Date Recorded Patient Health Questionnaire-2 Score 6 05/09/2024 Comments Unknown Sex and Gender Information Value [...] Description 08/01/2024 3:15 PM EDT Office Visit [facility] [address] [place] [address] Dahlia Murphy NP [address] [place] [address] documented as of this encounter Visit Diagnoses Diagnosis Iron deficiency anemia due to chronic blood loss Iron deficiency anemia secondary to blood loss (chronic) documented in this encounter Additional Health Concerns Assessment Noted Time PHQ-9 Depression Total Score: 16 024 11:51 AM EST documented as of this encounter Care Teams Binder Technician Relationship Specialty Start Date End Date Dahlia Murphy NP [address] [place] [address] PCP - General Family Medicine 06/25/23 documented as of this encounter
--- OUTSIDE RECORDS SUMMARY | 2024-07-21 11:49 | XMS_ITS | Encounter Summary ---
Author Organization [employer] [facility] Address [address] [place] [address] 7 [place] [address] Care Team Providers Care Planning Engineer Name Role Phone Tania Heck Che TIRE BALANCER Primary Care Provider [phone] Nargis Alvarenga PARACHUTE OFFICER Primary Care Provider Dahlia Murphy NP Primary Care Provider [phone] Encounter Details Date Type Department Care Team (Late st Contact Info) Description 05/05/2022 Abstract [facility] [address] [place] [address] Jame Richards DDS [address] [place] [address] Social History Tobacco Use Types Packs/Day Years [...] Description 08/01/2024 3:15 PM EDT Office Visit [facility] [address] [place] [address] Dahlia Murphy NP [address] [place] [address] documented as of this encounter Visit Diagnoses Not on filedocumented in this encounter Care Teams Planning Engineer Relationship Specialty Start Date End Date Tania Heck FNP PCP - General Family Medicine 03/07/21 02/15/23 Nargis Alvarenga NP [address] [place] [address] PCP - General Family Medicine 02/16/23 06/24/23 Dahlia Murphy NP [address] [place] [address] PCP - General Family Medicine 06/25/23 documented as of this encounter
--- OUTSIDE RECORDS SUMMARY | 2024-07-21 11:49 | XMS_ITS | Encounter Summary ---
Author Organization [employer] Address [address] [place] [address] 7 [place] [address] Care Team Providers Care Awning Finisher Name Role Phone Dahlia Murphy NP Primary Care Provider [phone] Reason for Visit * Reason Onset Date Comments Med Refill 07/24/2023 Encounter Details Date Type Department Care Team (Late st Contact Info) Description 07/24/2023 Telephone [facility] [address] [place] [address] Dahlia Murphy NP [address] [place] [address] Med Refill Social History Tobacco Use Types Packs/Day Years Used Date Smoking Tobacco: Every Day Cigarettes Smokeless Tobacco: Never Alcohol Use Standard Drinks/Week Comments Never 0 (1 standard drink = 0.6 oz pur e alcohol) Depression Answer Date Recorded Patient Health Questionnaire-9 Score 11 07/14/2022 Depression Answer Date Recorded Patient Health Questionnaire-2 Score 2 07/14/2022 Comments Unknown Sex and Gender Information Value Date Recorded Sex Assigned at Female 03/13/2022 10:33 AM EDT Legal Sex Female 10:33 AM EDT Gender Identity Female 03/13/2022 10:33 AM EDT Sexual Orientation Straight 03/13/2022 10 :33 AM EDT documented as of this encounter Miscellaneous Notes * Telephone Encounter - Nicky Gardner LPN - 07/24/2023 9:56 AM EDT Medications are prescribed by Dr. Balbuena. * Telephone Encounter - Magan Cota - 07/24/2023 9:49 AM EDT TC from pt requesting medication refill. Medications needing refill : PARoxetine (Paxil) 20 MG table OXcarbazepine (Trileptal) 300 MG tablet To be sent to: [facility] - [place], [place] - [address] [facility] Pt needs meds for med box. documented in this encounter Plan of Treatment Upcoming Encounters Date Type Department Care Team ([facility] st Contact Info) Description 08/01/2024 3:15 PM EDT Office Visit [facility] [address] [place] [address] Dahlia Murphy NP [address] [place] [address] documented as of this encounter Visit Diagnoses Not on filedocumented in this encounter Additional Health Concerns Assessment Noted Time PHQ-9 Depression Total Score: 11 023 2:37 PM EST documented as of this encounter Care Teams Awning Finisher Relationship Specialty Start Date End Date Dahlia Murphy NP [address] [place] [address] PCP - General Family Medicine 06/25/23 documented as of this encounter
--- OUTSIDE RECORDS SUMMARY | 2024-07-21 11:49 | XMS_ITS | Encounter Summary ---
Author Organization [employer] Address [address] [facility] 7t [place] [address] Care Team Providers Care Cyber Incident Responder Name Role Phone Dahlia Murphy NP Primary Care Provider [phone] Reason for Visit * Reason Comments Med Refill Encounter Details Date Type Department Care Team ([facility] st Contact Info) Description 10/19/2023 Refill [facility] MED & PEDS [address] [place] [address] Name, MD Dain [address] [place] [address] High cholesterol Social History Tobacco Use Types Packs/Day Years Used Date Smoking Tobacco: Every Day Cigarettes Smokeless Tobacco: Never Alcohol Use Standard Drinks/Week Comments Never 0 (1 standard drink = 0.6 oz pur e alcohol) Depression Answer Date Recorded Patient Health Questionnaire-9 Score 16 08/21/2023 Patient Health Questionnaire-9 Score 16 08/21/2023 Last PHQ-9: Questionnaire Data Not on file 0 08/21/2023 Housing Stability Answer Date Recorded What is [...] enough money to get more: Never True 07/2023 Transportation Answer Date Recorded In the [...] Date Recorded Patient Health Questionnaire-2 Score 6 08/21/2023 Comments Unknown Sex and Gender Information Value [...] Description 08/01/2024 3:15 PM EDT Office Visit [facility] MEDICINE [address] [place] [address] Dahlia Murphy NP [address] [place] [address] documented as of this encounter Visit Diagnoses Diagnosis High cholesterol Pure hypercholesterolemia documented in this encounter Additional Health Concerns Assessment Noted Time PHQ-9 Depression Total Score: 16 024 2:43 PM EDT documented as of this encounter Care Teams Cyber Incident Responder Relationship Specialty Start Date End Date Dahlia Murphy NP [address] [place] [address] PCP - General Family Medicine 06/25/23 documented as of this encounter
--- OUTSIDE RECORDS SUMMARY | 2024-07-21 11:49 | XMS_ITS | Encounter Summary ---
Author Organization [employer] [facility] Address [address] [place] [address] 7 [place] [address] Care Team Providers Care Contract Paralegal Name Role Phone Nargis Alvarenga SENIOR OCCUPATIONAL THERAPIST Primary Care Provider [phone] Dahlia Murphy SENIOR OCCUPATIONAL THERAPIST Primary Care Provider [phone] Reason for Visit * Reason Comments Med Refill Encounter Details Date Type Department Care Team ([facility] st Contact Info) Description 06/04/2023 Refill [facility] [address] [place] [address] Miriam Serrano FNP [address] [place] [address] Hypertriglyceridemia Social History Tobacco Use Types Packs/Day Years [...] encounter Miscellaneous Notes * Telephone Encounter - Nargis Alvarenga NP - 06/04/2023 9:11 PM EST Approving, but needs appt for additional refills. documented in this encounter Plan of Treatment Upcoming Encounters Date Type Department Care Team (Late st Contact Info) Description 08/01/2024 3:15 PM EDT Office Visit [facility] [address] [place] [address] Dahlia Murphy NP [address] [place] [address] documented as of this encounter Visit Diagnoses Diagnosis Hypertriglyceridemia Pure hyperglyceridemia documented in this encounter Additional Health Concerns Assessment Noted Time PHQ-9 Depression Total Score: 11 023 2:37 PM EST documented as of this encounter Care Teams Contract Paralegal Relationship Specialty Start Date End Date Nargis Alvarenga NP [address] [place] [address] PCP - General Family Medicine 02/16/23 06/24/23 Dahlia Murphy NP [address] [place] [address] PCP - General Family Medicine 06/25/23 documented as of this encounter
--- OUTSIDE RECORDS SUMMARY | 2024-07-21 11:49 | XMS_ITS | Encounter Summary ---
Author Organization [employer] Address [address] [place] [address] 7 [place] [address] Care Team Providers Care Patient Appointment Coordinator Name Role Phone Dahlia Murphy NP Primary Care Provider [phone] Reason for Referral * Consultation (Routine) - Authorized Specialty Diagnoses / Procedures Referred By Contac t Referred To Contact General Surgery Diagnoses Abscess of buttock, right Amarilis Mazariegos MD [address] [place] [address] Phone: tel: fax: Mikel Monteiro MD [address] [place] [address] Phone: tel: fax: Referral ID Status Reason Start Date Expiration Date Visits Requested Visits Authorized [id number] Authorized Specialty Services Required 07/15/2024 07/15/2025 1 1 Reason for Visit * Reason Comments abcess on gissell Encounter Details Date Type Department Care Team (Late st Contact Info) Description 07/15/2024 9:00 AM EST Office Visit [facility] [address] [place] [address] Amarilis Mazariegos MD [address] [place] [address] Abscess of buttock, right (Primary Dx) Social History Tobacco Use Types Packs/Day Years [...] AM EDT documented as of this encounter Last Filed Vital Signs Vital Sign Reading Time Taken Comments Blood Pressure 135/88 07/15/2024 9:03 AM EST Pulse 80 07/15/2024 9:03 AM EST Temperature 36.8 ??C (98.2 ??F) 07/15/2024 9:03 AM ES T Respiratory Rate 20 07/15/2024 9:03 AM EST Oxygen Saturation 97% 07/15/2024 9:03 AM EST Inhaled Oxygen Concentration - - Weight 96.2 kg (212 lb) 07/15/2024 9:03 AM EST Height - - Body Mass Index 33.2 06/17/2024 4:23 PM EST documented in this encounter Progress Notes * Tresa Rodríguez - 07/15/2024 9:00 AM EST Subjective Patient ID: Michelle Mcdowell is a 39 y.o. female with past medical history of SHARIFA, hypertension, IBS, Fibromyalgia, DM2, obesity, and Bipolar who presents to walk in clinic for abcess on [facility]. Pt reports she suspects abscess on her buttocks. She reports 6 months ago she had an abscess in thesame location, was prescribed abx, the pain was relieved but still had lesion. Pt reports she has in the past few weeks had worsened pain and swelling to the area. Denies discharge or fevers. Review of Systems Constitutional: Negative for fever and unexpected weight change. Respiratory: Negative for shortness of breath. Cardiovascular: Negative for chest pain. Gastrointestinal: Negative for abdominal pain. Genitourinary: Negative for difficulty urinating. Skin: lesion Objective Visit Vitals BP 135/88 (BP Location: Left arm, Patient Position: Sitting, BP Cuff Size: Adult) Pulse 80 Temp 98.2 ??F (36.8 ??C) (Temporal) Resp 20 Body mass index is 33.2 kg/m??. Physical Exam Constitutional: Appearance: Normal appearance. Cardiovascular: Rate and Rhythm: Normal rate. Pulmonary: Effort: Pulmonary effort is normal. Skin: Findings: Abscess (right buttock, 4 cm erythematous indurated area that stretches about 7 cm) present. Neurological: General: No focal deficit present. Mental Status: She is alert. Psychiatric: Behavior: Behavior normal. Problem List Items Addressed This Visit Abscess of buttock, right - Primary Right buttock, 4 cm erythematous, indurated area that stretches about 7 cm. Consistent with abscess. -prescribed doxycycline (Vibramycin) 100 MG Take 1 capsule (100 mg) by mouth 2 times daily for 10 days -given work note. -referred to General Surgery. Relevant Medications doxycycline (Vibramycin) 100 MG capsule Other Relevant Orders Referral to General Surgery -No evidence of acute disease process. Suspect infected abscess. Symptoms mild. No pustule head or drainage to culture. -Will treat with abx and referred to general surgery. -ER precautions discussed. -Seek medical attention for worsening symptoms. I, Tresa Rodríguez, am serving as a scribe to document services personally performed by Dr. Alfonso, based on the patient's response to questions by provider and providers statements to me. documented in this encounter Miscellaneous Notes * Assessment & Plan Note - Tresa Rodríguez - 07/15/2024 9:13 AM ESTAssociated Problem(s): Abscess of buttock, right Right buttock, 4 cm erythematous, indurated area that stretches about 7 cm. Consistent with abscess. -prescribed doxycycline (Vibramycin) 100 MG Take 1 capsule (100 mg) by mouth 2 times daily for 10 days -given work note. -referred to General Surgery. documented in this encounter Plan of Treatment Upcoming Encounters Date Type Department Care Team (Late st Contact Info) Description 08/01/2024 3:15 PM EDT Office Visit [facility] [address] [place] [address] Dahlia Murphy NP [address] [place] [address] Scheduled Referrals Name Type Priority Associated Diagnoses Orde r Schedule Referral to General Surgery Outpatient Referral Routine Abscess of buttock, right Expected: 07/15/2024 (Approximate), Expires: 07/15/2025 documented as of this encounter Visit Diagnoses Diagnosis Abscess of buttock, right- Primary documented in this encounter Additional Health Concerns Assessment Noted Time PHQ-9 Depression Total Score: 16 024 11:51 AM EST documented as of this encounter Care Teams Patient Appointment Coordinator Relationship Specialty Start Date End Date Dahlia Murphy NP [address] [place] [address] PCP - General Family Medicine 06/25/23 documented as of this encounter
--- OUTSIDE RECORDS SUMMARY | 2024-07-21 11:49 | XMS_ITS | Encounter Summary ---
Author Organization [email or web address] Address [address] [place] [address] [address] [place] [address] Care Team Providers Care Gun Perforator Loader Name Role Phone Nargis Alvarenga FIRE SYSTEMS INSPECTOR Primary Care Provider [phone] Dahlia Murphy FIRE SYSTEMS INSPECTOR Primary Care Provider [phone] Reason for Visit * Reason Comments Med Refill Encounter Details Date Type Department Care Team ([facility] st Contact Info) Description 06/05/2023 Refill [facility] [address] [place] [address] Gaby Balderrama, [place]ILIA [address] [place] [address] Health care maintenance; Essential hypertension Social History Tobacco Use Types Packs/Day Years [...] Telephone Encounter - Nargis Alvarenga NP - 06/05/2023 10:02 PM EST Approving, but needs appt for additional refills. documented in this encounter Plan of Treatment Upcoming Encounters Date Type Department Care Team (Late st Contact Info) Description 08/01/2024 3:15 PM EDT Office Visit [facility] [address] [place] [address] Dahlia Murphy NP [address] [place] [address] documented as of this encounter Visit Diagnoses Diagnosis Health care maintenance Essential hypertension Unspecified essential hypertension documented in this encounter Additional Health Concerns Assessment Noted Time PHQ-9 Depression Total Score: 11 023 2:37 PM EST documented as of this encounter Care Teams Gun Perforator Loader Relationship Specialty Start Date End Date [place] [address] PCP - General Family Medicine 02/16/23 06/24/23 Dahlia Murphy NP [address] [place] [address] PCP - General Family Medicine 06/25/23 documented as of this encounter
--- OUTSIDE RECORDS SUMMARY | 2024-07-21 11:49 | XMS_ITS | Clinical Summary ---
Author Organization [employer] Address [address] [place] [address] 7[address] [place] [address] Care Team Providers Care [employer] Name Role Phone Dahlia Murphy NP Primary Care Provider [phone] Allergies No known active allergies Medications * This document contains information received from the source organization and may not represent a complete record from that organization. OXcarbazepine (Trileptal) 300 MG tablet take 1 tablet by oral route 2 times every day Active metoprolol succinate XL (Toprol-XL) 50 MG 24 hr tablet Take 1 and 1/2 tablet by mouth daily Active PARoxetine (Paxil) 20 MG tablet Take 20 mg by mouth in the morning. 05/25/19 23 Active hydrOXYzine HCl (Atarax) 50 MG tablet TAKE 1 TABLET BY MOUTH THREE TIMES DAILY NEEDED FOR ANXIETY OR FOR SLEEP 05/25/19 23 Active Alcohol Swabs (Alcohol Pads) 70 % padsIndications: Type 2 diabetes mellitus without complication, without long-term current use of insulin (CMS/[facility]) 1 each 3 times daily. Use 3 time daily to test blood sugar 100 each 07/27/19 24 Active glucose blood (FREESTYLE LITE) test stripIndications :Type 2 diabetes mellitus without complication, without long-term current use of insulin (CMS/HCC) 1 each by Other route 3 times daily. Use as instructed 100 each 07/27/19 24 Active TRUEplus Lancets 33G miscIndications: Type 2 diabetes mellitus without complication, without long-term current use of insulin (CMS/HCC) 1 each 3 times daily. Use to test blood sugar 3 times daily 100 each 07/27/19 24 Active nicotine polacrilex (Nicorette) 4 MG gumIndications:T obacco user Chew 1 each (4 mg) if needed for smoking cessation. 100 each 1 08/21/19 24 Active naproxen (Naprosyn) 500 MG tabletIndication s:Muscle pain take 1 tablet by oral route 2 times every day with food prn 30 tablet 1 08/21/19 24 Active cyclobenzaprine (Flexeril) 10 MG tabletIndication s:Muscle pain TAKE 1 TABLET BY MOUTH BEFORE BEDTIME NEEDED 30 tablet 08/21/19 24 Active fluticasone (Flonase) 50 MCG/ACT nasal sprayIndications :Seasonal allergic rhinitis, unspecified trigger spray 1 - 2 spray by intranasal route every day in each nostril as needed for 14 days , please request as TRIAL , no need long time use -thanks 48 g 09/13/19 24 Active albuterol 108 (90 Base) MCG/ACT inhaler Inhale 2 puffs every 6 (six) hours if needed for wheezing. 18 g 1 09/13/19 24 025 Active azithromycin (Zithromax Z-Jarret) 250 MG tablet Take 2 tabs day 1 and then 1 tab daily to finish 6 tablet 09/25/19 24 Active Dextromethorphan -guaiFENesin (Mucinex DM) 30-600 MG tablet sustained-releas e 12 hour Use 1 tab TID 28 tablet 09/25/19 24 Active acetaminophen (Tylenol) 500 MG tablet Take 1 tablet (500 mg) by mouth every 6 (six) hours if needed for mild pain for up to 20 doses. 20 tablet 12/11/19 24 Active metFORMIN (Glucophage) 1000 MG tabletIndication s:Type 2 diabetes mellitus without complication, without long-term current use of insulin (CMS/HCC) TAKE 1 TABLET BY MOUTH TWICE DAILY IN THE MORNING AND IN THE EVENING WITH FOOD 180 tablet 2 02/11/20 24 Active Ascorbic Acid (vitamin C) 500 MG tabletIndication s:Iron deficiency anemia secondary to blood loss (chronic) TAKE 2 TABLETS BY MOUTH ONCE DAILY IN THE MORNING 180 tablet 1 04/01/20 24 Active omega-3 (Fish Oil) 1000 MG capsuleIndicatio ns:High cholesterol TAKE 1 CAPSULE BY MOUTH EVERY MORNING 90 capsule 1 04/01/20 24 Active Farxiga 10 MGIndications:Ty pe 2 diabetes mellitus without complication, without long-term current use of insulin (CMS/HCC) TAKE 1 TABLET BY MOUTH EVERY MORNING 90 tablet 1 04/01/20 24 Active losartan (Cozaar) 25 MG tabletIndication s:Essential hypertension TAKE 1 TABLET BY MOUTH EVERY MORNING 90 tablet 05/06/20 24 Active Multiple Vitamin (Multivitamin) tabletIndication s:Health care maintenance TAKE 1 TABLET BY MOUTH EVERY MORNING 90 tablet 05/06/20 24 Active nicotine (Nicoderm CQ) 14 MG/24HR patchIndications :Tobacco user Place 1 patch on the skin 1 (one) time each day at the same time. 30 patch 05/09/20 24 Active atorvastatin (Lipitor) 80 MG tabletIndication s:Hypertriglycer idemia TAKE 1 TABLET BY MOUTH EVERY MORNING 90 tablet 05/28/19 25 Active ferrous gluconate (Fergon) 324 (38 Fe) MG tabletIndication s:Iron deficiency anemia due to chronic blood loss TAKE 1 TABLET BY MOUTH EVERY OTHER DAY IN THE MORNING 45 tablet 06/24/19 25 Active doxycycline (Vibramycin) 100 MG capsuleIndicatio ns:Abscess of buttock, right Take 1 capsule (100 mg) by mouth 2 times daily for 10 days. Take with at least 8 ounces (large glass) of water, do not lie down for 30 minutes after 20 capsule 07/16/19 25 025 Active ferrous gluconate (Fergon) 324 (38 Fe) MG tabletIndication s:Iron deficiency anemia due to chronic blood loss TAKE 1 TABLET BY MOUTH EVERY OTHER DAY IN THE MORNING 45 tablet 03/06/20 24 025 Discontinued Hospital, Clinic, or Other Facility Administered Medication Ordered Dose Route Frequency Start Date End Date Status ipratropium-albuterol (Duo-Neb) 0.5-2.5 mg/3 mL nebulizer solution 3 mLIndications:Acute bronchitis, unspecified organism 3 mL NEBULIZATION Once 09/25/2023 Ac tive Active Problems Problem Noted Date Diagnosed Date Abscess of buttock, right 07/15/2024 Assessment & Plan (07/15/2024 9:16 AM EST): Right buttock, 4 cm erythematous, indurated area that stretches about 7 cm. Consistent with abscess. -prescribed doxycycline (Vibramycin) 100 MG Take 1 capsule (100 mg) by mouth 2 times daily for 10 days -given work note. -referred to General Surgery. Major depressive disorder 06/05/2024 Breast pain 05/09/2024 Assessment & Plan (05/09/2024 5:17 PM EST): Left breast pain, Ultrasound and dx mammogram ordered No discharge or lymphadenopathy appreciated Dietary counseling 05/09/2024 Assessment & Plan (05/09/2024 5:17 PM EST): Encouraged minimizing processed foods and increasing whole foods particularly vegetables Encouraged low sodium Exercise counseling 05/09/2024 Assessment & Plan (07/06/2024 3:55 PM EST): Dietary Recommendations: Fruits, vegetables, whole grains, protein foods, and fat-free or low-fat dairy products are healthy choices. Eat different types of protein foods in your diet. This can include seafood, lean meats, poultry, beans, peas, lentils, nuts, seeds, soy products, and eggs. Limit foods and beverages higher in added sugars, saturated fat, and sodium. Exercise Recommendations: At least 150 minutes of moderate-intensity physical activity per week, or an equivalent combination of moderate- and vigorous-intensity activity Pt has successfully increased exercise, is eating more whole foods and has lost weight Assessment & Plan (05/09/2024 5:17 PM EST): Encouraged daily movement, working up to 30 minutes daily Dental abscess 12/11/2023 Family history of malignant neoplasm of ovary Recurrent ventral hernia 11/20/2023 Overview (11/20/2023): Was repaired at [facility] in the past, she does not think mesh was used. Now the hernia is out again. Bronchitis with acute wheezing 09/13/2023 Assessment & Plan (09/13/2023 3:49 PM EDT): Symptoms appears viral bronchitis /wheezing ,also reports some vertigo likely in setting of viral infection CBG today 159 , Flu/COVID 19 neg VS wnl -tylenol prn -mucinex,ocean nasal spray ,Flonase -abuterol pump -rest at home for 48 h ( gave excuse letter) -alarm signs and symptoms discussed,if no better in next 72 h to come back to consider ATB -hold for now -advised to have blood workup ordered by her PCP in 08/21/2023 including CBC,TSH,Chem Dermatochalasis of both upper eyelids 08/28/2023 Assessment & Plan (08/28/2023 10:15 AM EDT): Bothersome to patient, not impacting vision. Referral to eye and lasix Generalized anxiety disorder 08/27/2023 Assessment & Plan (08/28/2023 10:11 AM EDT): Continue current regimen , referred to therapy Tobacco user 08/21/2023 Assessment & Plan (07/06/2024 3:55 PM EST): Encouraged ongoing reduction, cessation Assessment & Plan (05/09/2024 5:17 PM EST): Pt open to nicotine patches rx sent Assessment & Plan (08/28/2023 10:10 AM EDT): Aware of negative impact on health, motivated to cut down, nicotine replacement products prescribed Medication Indications, side effects and duration of therapy reviewed, pt aware to call clinic for worsening symptoms or failure to resolve Muscle pain 08/21/2023 Assessment & Plan (08/28/2023 10:08 AM EDT): Supportive measures reviewed De Quervain's disease (tenosynovitis) 08/21/2023 Assessment & Plan (08/28/2023 10:08 AM EDT): Referral to surgery Headache with neurologic deficit 10/18/2022 Overview (01/24/2023): Hx concerning for MS Pt reports neck pain with tingling sensation, back locking up , and radiculopathy down legs. Midline neck pain worsening, Episodes occurring every day; episode of tingling with radiating pain. Aggravated by: posture when pt is on the phone or on the computer, or eye movements. Describes as electrical current that goes up into the occipital scalp and then run downs the whole spine. Associated eye pain and pressure, dizziness, what she is looking at colors change. 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 However enough sx are concerning for long to warrant MRI brain with and without contrast MRI ordered 07/13/22 Never scheduled Will task team to assist with scheduling Assessment & Plan (01/24/2023 8:08 PM EDT): Episodes are lasting longer and occurring daily since 01/19/23. Aggravated by postural changes Continue meclizine TID PRN MRI still not performed. Will task RN check on MRI status Has ENT appt on 05/03/23 Bipolar II disorder 06/01/2022 Assessment & Plan (08/28/2023 10:10 AM EDT): Insightful willing to resume therapy though hesitant, employed. 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 Type 2 diabetes mellitus wit h hyperglycemia, without long-term current use of insulin 05/09/2018 Assessment & Plan (07/06/2024 3:57 PM EST): Improved glycemic control, continue metformin 1000 mg bid And farxgia Assessment & Plan (05/09/2024 5:16 PM EST): At goal today, pt declines glp-1 Assessment & Plan (08/28/2023 10:09 AM EDT): Stable, slightly above goal of <7, continue current regimen In person hgb A1c 7.2 Morbid obesity 04/02/2018 Assessment & Plan (07/06/2024 3:54 PM EST): Dietary Recommendations: Fruits, vegetables, whole grains, protein foods, and fat-free or low-fat dairy products are healthy choices. Eat different types of protein foods in your diet. This can include seafood, lean meats, poultry, beans, peas, lentils, nuts, seeds, soy products, and eggs. Limit foods and beverages higher in added sugars, saturated fat, and sodium. Exercise Recommendations: At least 150 minutes of moderate-intensity physical activity per week, or an equivalent combination of moderate- and vigorous-intensity activity Obstructive sleep apnea syndrome 04/02/2018 Hypertriglyceridemia 10/01/2017 Cardiac arrhythmia 08/28/2017 Dyslipidemia 08/28/2017 Fibromyalgia 08/28/2017 Mixed anxiety and depressive disorder 08/28/2017 Weakness of left upper extremity 08/28/2017 Encounters Date Type Department Care Team Description 07/15/2024 9:00 AM EST Office Visit [facility] [address] [place] [phone] Amarilis Mazariegos MD Abscess of buttock, right (Primary Dx) 06/24/2024 Refill [facility] [address] [place] [address] Dahlia Murphy NP Iron deficiency anemia due to chronic blood loss 06/17/2024 4:00 PM EST Office Visit [facility] [address] [place] [phone] Dahlia Murphy NP Type 2 diabetes mellitus with hyperglycemia, without long-term current use of insulin (CMS/[facility]) (Primary Dx); Tobacco user; Dietary counseling; Exercise counseling; Morbid obesity (CMS/HCC) 06/05/2024 Telephone [facility] [address] [place] [phone] Chrissie Huizar MA Chart Prep 05/28/2024 Refill [facility] [address], [place] [phone] Dahlia Murphy NP Hypertriglyceridemia 05/15/2024 Telephone [facility] [address], [place] [phone] Dahlia Murphy NP 05/09/2024 11:15 AM EST Office Visit [facility] [address] [place] [address] Dahlia Murphy NP Type 2 diabetes mellitus with hyperglycemia, without long-term current use of insulin ([facility]) (Primary Dx); Breast pain; Tobacco user; Dietary counseling; Exercise counseling 05/09/2024 Telephone [facility] [address], [place] [phone] Liliam Parra RN 05/05/2024 Refill [facility] [address], [place] [phone] Dahlia Murphy NP Essential hypertension; Health care maintenance from Last 3 Months Immunizations Name Administration Dates Next Due Hep B, adult 03/09/2022,07/04/2018,05/31/2018 Influenza Injectable Quadriv alant Preservative Free IIV4 MDCK 07/11/2021 Influenza injectable quadriv alent IIV4 with preservative 05/26/2019,04/02/2018 Influenza injectable quadriv alent preservative free 03/09/2022,06/21/2020 Pfizer Covid-19 Vaccine 12+ 12/30/2021,,12/25/2020 Pfizer Covid-19 Vaccine 12+ tomy-sucrose (Tubbs Cap) 12/30/2021 Pneumococcal Conjugate PCV 20 06/21/2022 Pneumococcal Polysaccharide PPSV23 08/05/2018 Tdap 04/02/2018 Social History Tobacco Use Types Packs/Day Years Used Date Smoking Tobacco: Every Day Cigarettes Smokeless Tobacco: Never Tobacco Cessation:Ready to Q uit: Not Asked; Counseling Given: Not Answered Alcohol Use Standard Drinks/Week Comments Never 0 [...] Orientation Straight 03/13/2022 10 :33 AM EDT Last Filed Vital Signs Vital Sign Reading Time Taken Comments Blood Pressure 135/88 07/15/2024 9:03 AM EST Pulse 80 07/15/2024 9:03 AM EST Temperature 36.8 ??C (98.2 ??F) 07/15/2024 9:03 AM ES T Respiratory Rate 20 07/15/2024 9:03 AM EST Oxygen Saturation 97% 07/15/2024 9:03 AM EST Inhaled Oxygen Concentration - - Weight 96.2 kg (212 lb) 07/15/2024 9:03 AM EST Height 170.2 cm (5' 7 ) 06/17/2024 4:23 PM EST Body Mass Index 33.2 06/17/2024 4:23 PM EST Plan of Treatment Upcoming Encounters Date Type Department Care Team (Late st Contact Info) Description 08/01/2024 3:15 PM EDT Office Visit [facility] [address] [place] [address] Dahlia Murphy NP [address] [place] [address] Health Maintenance Due Date Last Done Comments Dental Prophylaxis 1984 Diabetes: Foot Exam 1994 Family Planning (PISQ) 1999 Dental Oral Exam 07/12/2018 01/09/2018 Dental X-Ray: Bitewings 01/10/2019 01/09/2018 Diabetes: Urine Protein Screening 10/17/2023 10/16/2022, 03/08/2022 Lipid Panel 10/17/2023 10/16/2022, 03/0 05/2022, 03/08/2022, Additional history exists COVID-19 Vaccine ( season) 2024 12/30/2021, 12/30/2021, 01/16/2021, Additional history exists Influenza Vaccine (#1) 2024 , 07/11/2021, 06/21/2020, Additional history exists Diabetes: Hemoglobin A1C 08/07/2024 024, 05/09/2024, 08/21/2023, Additional history exists SDOH Screening 08/14/2024 08/15/2023 Depression Monitoring (PHQ-9) 11/07/2024 05/09/2024, 05/09/2024 Dental X-Ray: Full Mouth 03/08/2025 03/07/2022, 12/13 Alcohol/Substance Use Screening 05/09/2025 05/09/2024 Depression Screening 05/09/2025 05/09/2024, 05/09/20 24 Tobacco Screening 06/17/2025 06/17/2024 Eye Exam 11/06/2025 11/07/2023 Mammogram 07/07/2026 07/07/2024, 06/15, 01/30/2020 Cervical Cancer Screening 08/04/2027 HPV/Cotest 08/04/2027 08/03/2022, 01/20/2020 Pap Smear 08/04/2027 08/03/2022 DTaP/Tdap/Td Vaccines (2 - Td or Tdap) 04/02/2028 04/02/2018 Zoster Vaccines (1 of 2) 2034 RSV Patients and Patients Aged 60 years or older (1 - 1-dose 75+ series) 2059 HIV Screening Completed 03/08/2022 Hepatitis C Screening Completed 03/08/2022 Hepatitis B Vaccines Completed 03/09/2022, 07/04/2018, 05/31/2018 Pneumococcal Vaccine: Pediatrics (0 to 5 Years) and At-Risk Patients (6 to 49) Years) Completed 06/21/2022, 08/05/2018 HIB Vaccines Aged Out No longer eligi ble based on patient's age to complete this topic HPV Vaccines Aged Out No longer eligi ble based on patient's age to complete this topic Hepatitis A Vaccines Aged Out No long er eligible based on patient's age to complete this topic IPV Vaccines Aged Out No longer eligi ble based on patient's age to complete this topic Meningococcal Vaccine Aged Out No cornelio julian eligible based on patient's age to complete this topic RSV under 20 months Aged Out No longe r eligible based on patient's age to complete this topic Rotavirus Vaccines Aged Out No longer eligible based on patient's age to complete this topic Procedures Procedure Name Priority Date/Time Associated Diagnosis Comments BI US BREAST LIMITED LEFT Urgent 07/07/2024 12:15 PM EST BI MAMMOGRAM DIAGNOSTIC TOMOSYNTHESIS BILATERAL Routine 07/07/2024 11:45 AM EST Breast pain POCT GLUCOSE Routine 06/17/2024 4:53 PM EST Type 2 diabetes mellitus with hyperglycemia, without long-term current use of insulin (CMS/HCC) COMPREHENSIVE METABOLIC PANEL Routine 05/09/2024 12:28 PM EST Type 2 diabetes mellitus with hyperglycemia, without long-term current use of insulin (CMS/HCC) HEMOGLOBIN A1C Routine 05/09/2024 12:28 PM EST Type 2 diabetes mellitus with hyperglycemia, without long-term current use of insulin (CMS/HCC) CBC WITH AUTO DIFFERENTIAL Routine 05/09/2024 12:28 PM EST Type 2 diabetes mellitus with hyperglycemia, without long-term current use of insulin (CMS/HCC) TSH W/REFLEX TO FT4 Routine 05/09/2024 1 2:28 PM EST Type 2 diabetes mellitus with hyperglycemia, without long-term current use of insulin (CMS/HCC) POCT GLYCATED HEMOGLOBIN, TOTAL Routine 05/09/2024 11:46 AM EST Type 2 diabetes mellitus with hyperglycemia, without long-term current use of insulin (CMS/HCC) POCT GLUCOSE Routine 05/09/2024 11:46 AM EST Type 2 diabetes mellitus with hyperglycemia, without long-term current use of insulin (CMS/HCC) AMB REFERRAL TO OPHTHALMOLOGY Routine 11/07/2023 Dermatochalasis of both upper eyelids ALBUMIN, RANDOM URINE W/O CREATININE Routine 10/16/2022 8:16 AM EDT Type 2 diabetes mellitus without complication, without long-term current use of insulin (CMS/HCC) LIPID PANEL, STANDARD Routine 10/16/2022 8:16 AM EDT Type 2 diabetes mellitus without complication, without long-term current use of insulin (CMS/HCC) HM PAP/HPV Routine 08/03/2022 ZZZ HISTORICAL HEPATITIS C AB W/REFL TO HCV RNA, QN, PCR Routine 03/08/2022 8:59 AM EDT HIV 1/2 ANTIGEN/ANTIBODY, FOURTH GENERATION W/RFL Routine 03/08/2022 8:59 AM EDT PANORAMIC RADIOGRAPHIC IMAGE Routine 03/07/2022 12:00 AM EDT INTRAORAL - COMPLETE SERIES OF RADIOGRAPHIC IMAGES Routine 01/09/2018 12:00 AM EDT COMPREHENSIVE ORAL EVALUATION - NEW OR ESTABLISHED PATIENT Routine 01/09/2018 12:00 AM EDT from Last 3 Months or Most Recently Relevant to Health Maintenance Results * BI US Breast Limited Left (07/07/2024 12:15 PM EST) Anatomical Region Laterality Modality Breast Left Ultrasound 07/07/2024 12:1 5 PM EST Narrative 07/07/2024 12:46 PM EST ? [facility] ? [address] ?[place] [address] ? Ultrasound Report ? Signed ? Patient: Castanon Mcdowell,Michelle ?MR#: [id number] ?? [id number] ? : 1985 ?Acct:[id number] ? Age/Sex: 39 / F ?ADM Date: 07/07/24 ? Loc: HO.MAMMO ? Attending Dr: Dahlia Murphy CORPORATE GIVING MANAGER ? Ordering Physician: Dahlia Murphy NP ?? Date of Service: 07/07/24 ?? Procedure(s): US breast LT limited mamm only ?? Accession Number(s): [id number] ? cc: Dahlia Murphy NP ? EXAMINATION: ?? MM DIAGNOSTIC DIGITAL BREAST TOMOSYNTHESIS, BILATERAL ?? Left breast ultrasound. ? CLINICAL INFORMATION: ? 39-year-old female with left breast pain and palpable lump and ?? yellowish nipple discharge. ? COMPARISON: ?? Mammography: Comparison is made with relevant prior exams. ? TECHNIQUE: ?? Digital breast mammography with tomosynthesis is performed in both the ?? craniocaudal and mediolateral oblique views along with computer-aided ?? detection (CAD). ?? Limited left breast ultrasound. ? FINDINGS: ?? The breasts are heterogeneously dense, which may obscure small masses ?? (ACR BI-RADS breast composition Category c). ?? Right: ?? There are no significant masses, abnormal calcifications, or other ?? abnormalities. ? Left: ?? Triangular palpable markers in the upper outer breast without ?? underlying abnormality. ?? No suspicious masses calcifications or other abnormal findings. ? Targeted color Doppler ultrasound scanning in the upper outer breast ?? 11-4 o'clock demonstrates normal fibronodular breast tissue. ?? Targeted color Doppler ultrasound scanning in the retroareolar region ?? demonstrates normal fibroglandular breast tissue. ? Results are provided to the patient at time of visit by the ?? technologist. ? US/US breast LT limited mamm only ?? IMPRESSION: ?? Right: Negative. ? Left: ?? No mammographic or sonographic abnormality correlating with the ?? patient's palpable lumps areas of pain and nipple discharge. Recommend ?? clinical evaluation and follow-up. ? ASSESSMENT: ? BI-RADS BI-RADS 1 - Negative ? RECOMMENDATION: ?? 1 year F/U ? This patient's information was entered into a reminder system with a ?? target due date for their next mammogram. ? Electronically signed by: ??Jannette Marie DO ??07/07/2024 12:43 PM EST ? Dictated By: ?Jannette Marie DO ? Signed By: ?<Electronically signed by Jannette Marie, DO in OV> ? 07/07/24 1243 ? DD/ 1215 ? TD/TT: 07/07/24 1235 ? Chief Substation Operator: ? Procedure Note Donotuseinterpreter, Image - 07/07/20[facility] [address] [place] [address] Ultrasound Report Signed Patient: Michelle HernandezMR#: [id number] : 1985Acct:[id number] Age/Sex: 39 / FADM Date: 07/07/24 Loc: HO.MAMMO Attending Dr: Dahlia Murphy NP Ordering Physician: Dahlia Murphy NP Date of Service: 07/07/24 Procedure(s): US breast LT limited mamm only Accession Number(s): [id number] cc: Dahlia Murphy CORPORATE GIVING MANAGER EXAMINATION: MM DIAGNOSTIC DIGITAL BREAST TOMOSYNTHESIS, BILATERAL Left breast ultrasound. CLINICAL INFORMATION: 39-year-old female with left breast pain and palpable lump and yellowish nipple discharge. COMPARISON: Mammography: Comparison is made with relevant prior exams. TECHNIQUE: Digital breast mammography with tomosynthesis is performed in both the craniocaudal and mediolateral oblique views along with computer-aided detection (CAD). Limited left breast ultrasound. FINDINGS: The breasts are heterogeneously dense, which may obscure small masses (ACR BI-RADS breast composition Category c). Right: There are no significant masses, abnormal calcifications, or other abnormalities. Left: Triangular palpable markers in the upper outer breast without underlying abnormality. No suspicious masses calcifications or other abnormal findings. Targeted color Doppler ultrasound scanning in the upper outer breast 11-4 o'clock demonstrates normal fibronodular breast tissue. Targeted color Doppler ultrasound scanning in the retroareolar region demonstrates normal fibroglandular breast tissue. Results are provided to the patient at time of visit by the technologist. US/US breast LT limited mamm only IMPRESSION: Right: Negative. Left: No mammographic or sonographic abnormality correlating with the patient's palpable lumps areas of pain and nipple discharge. Recommend clinical evaluation and follow-up. ASSESSMENT: BI-RADS BI-RADS 1 - Negative RECOMMENDATION: 1 year F/U This patient's information was entered into a reminder system with a target due date for their next mammogram. Electronically signed by: Jannette Marie DO 07/07/2024 12:43 PM EST RP Dictated By: Jannette Marie DO Signed By: <Electronically signed by Jannette Marie DO in OV> 07/07/24 1243 DD/ 1215 TD/TT: 07/07/24 1235 Chief Substation Operator: us Dahlia Murphy NP IMG US PROCEDURES Final Result * BI Mammogram Diagnostic Tomosynthesis Bilateral (07/07/2024 11:45 AM EST) Anatomical Region Laterality Modality Breast Bilateral Mammography 07/07/2024 11:4 5 AM EST Narrative 07/07/2024 12:46 PM EST ? [facility] ? [address] [facility] ?[place] [address] ? Mammography Report ? Signed ? Patient: Castanon Mcdowell,Michelle ?MR#: [id number] ?? [id number] ? : 1985 ?Acct:[id number] ? Age/Sex: 39 / F ?ADM Date: 02/24/25 ? Loc: HO.MAMMO ? Attending Dr: Dahlia Murphy CORPORATE GIVING MANAGER ? Ordering Physician: Graef,Dahlia B CORPORATE GIVING MANAGER ?Results: 1Negati ?? ve ? Date of Service: 07/07/24 ?Follow Up: 1 Year From Orig ?? inal Mammogram ? Procedure(s): MM tomosynthesis diagnostic BI ?? Accession Number(s): [id number] ? cc: Jeffrey,Dahlia Granado CORPORATE GIVING MANAGER ? EXAMINATION: ?? MM DIAGNOSTIC DIGITAL BREAST TOMOSYNTHESIS, BILATERAL ?? Left breast ultrasound. ? CLINICAL INFORMATION: ? 39-year-old female with left breast pain and palpable lump and ?? yellowish nipple discharge. ? COMPARISON: ?? Mammography: Comparison is made with relevant prior exams. ? TECHNIQUE: ?? Digital breast mammography with tomosynthesis is performed in both the ?? craniocaudal and mediolateral oblique views along with computer-aided ?? detection (CAD). ?? Limited left breast ultrasound. ? FINDINGS: ?? The breasts are heterogeneously dense, which may obscure small masses ?? (ACR BI-RADS breast composition Category c). ?? Right: ?? There are no significant masses, abnormal calcifications, or other ?? abnormalities. ? Left: ?? Triangular palpable markers in the upper outer breast without ?? underlying abnormality. ?? No suspicious masses calcifications or other abnormal findings. ? Targeted color Doppler ultrasound scanning in the upper outer breast ?? 11-4 o'clock demonstrates normal fibronodular breast tissue. ?? Targeted color Doppler ultrasound scanning in the retroareolar region ?? demonstrates normal fibroglandular breast tissue. ? Results are provided to the patient at time of visit by the ?? technologist. ? MM/MM tomosynthesis diagnostic BI ?? IMPRESSION: ?? Right: Negative. ? Left: ?? No mammographic or sonographic abnormality correlating with the ?? patient's palpable lumps areas of pain and nipple discharge. Recommend ?? clinical evaluation and follow-up. ? ASSESSMENT: ? BI-RADS BI-RADS 1 - Negative ? RECOMMENDATION: ?? 1 year F/U ? This patient's information was entered into a reminder system with a ?? target due date for their next mammogram. ? Electronically signed by: ??Jannette Marie DO ??07/07/2024 12:43 PM EST ? Dictated By: ?Jannette Marie DO ? Signed By: ?<Electronically signed by Jannette Marie, DO in OV> ? 07/07/24 1243 ? DD/ 1145 ? TD/TT: 07/07/24 1209 ? Chief Substation Operator: ? Procedure Note Donotivanter, Image - 07/07/2024 [facility] [address] [place] [address] Mammography Report Signed Patient: Michelle HernandezMR#: [id number] : 1985Acct:[id number] Age/Sex: 39 / FADM Date: 07/07/24 Loc: BERNIE.MAMMO Attending Dr: Dahlia Murphy CORPORATE GIVING MANAGER Ordering Physician: Dahlia Murphy NPResults: 1Negati ve Date of Service: 07/07/24Follow Up: 1 Year From Orig inal Mammogram Procedure(s): MM tomosynthesis diagnostic BI Accession Number(s): [id number] cc: Dahlia Murphy CORPORATE GIVING MANAGER EXAMINATION: MM DIAGNOSTIC DIGITAL BREAST TOMOSYNTHESIS, BILATERAL Left breast ultrasound. CLINICAL INFORMATION: 39-year-old female with left breast pain and palpable lump and yellowish nipple discharge. COMPARISON: Mammography: Comparison is made with relevant prior exams. TECHNIQUE: Digital breast mammography with tomosynthesis is performed in both the craniocaudal and mediolateral oblique views along with computer-aided detection (CAD). Limited left breast ultrasound. FINDINGS: The breasts are heterogeneously dense, which may obscure small masses (ACR BI-RADS breast composition Category c). Right: There are no significant masses, abnormal calcifications, or other abnormalities. Left: Triangular palpable markers in the upper outer breast without underlying abnormality. No suspicious masses calcifications or other abnormal findings. Targeted color Doppler ultrasound scanning in the upper outer breast 11-4 o'clock demonstrates normal fibronodular breast tissue. Targeted color Doppler ultrasound scanning in the retroareolar region demonstrates normal fibroglandular breast tissue. Results are provided to the patient at time of visit by the technologist. MM/MM tomosynthesis diagnostic BI IMPRESSION: Right: Negative. Left: No mammographic or sonographic abnormality correlating with the patient's palpable lumps areas of pain and nipple discharge. Recommend clinical evaluation and follow-up. ASSESSMENT: BI-RADS BI-RADS 1 - Negative RECOMMENDATION: 1 year F/U This patient's information was entered into a reminder system with a target due date for their next mammogram. Electronically signed by: Jannette Marie DO 07/07/2024 12:43 PM EST RP Dictated By: Jannette Marie DO Signed By: <Electronically signed by Jannette Marie DO in OV> 07/07/24 1243 DD/ 1145 TD/TT: 07/07/24 1209 Chief Substation Operator: Dahlia Murphy NP IMG BI PROCEDURES Final Result * POCT Glucose (06/17/2024 4:53 PM EST) Only the most recent of2 resultswithin the time period is included. Glucose Blood, POC 112 60 - 200 mg/dL QC Media Lot # [id number] Lot# Expiration Date Blood Capillary blood specimen / Unknown 06/17/2024 4:53 PM EST Dahlia Murphy NP POINT OF CARE TEST ENTER/EDIT OR DERABLES Final Result * TSH with Reflex to Free T4 (05/09/2024 12:28 PM EST) TSH reflex Free T4 2.34 0.32 - 4.0 uIU/mL [facility] Blood Venous blood specimen / Unknown 05/09/2024 12:28 PM EST 05/09/2024 12:56 PM EST us Dahlia Murphy NP LAB BLOOD ORDERABLES Final Resul t [facility] [address] [place] [address] [phone] * (ABNORMAL) CBC auto differential (05/09/2024 12:28 PM EST) White Blood Count 8.4 4.8 - 10.8 X10*3/uL [facility] Red Blood Count 4.89 4.20 - 5.50 X10*6/uL [facility] Hemoglobin 12.5 12.0 - 16.0 g/dl [facility] Hematocrit 39.3 37.0 - 47.0 % [facility] Mean Corpuscular Volume 80.4 80.0 - 98.0 fL [facility] Mean Corpuscular Hemoglobin 25.6(L) 27.0 - 33.0 pg [facility] Mean Corpuscular HGB Conc 31.8 31.0 - 35.0 g/dl [facility] Red Cell Distribution Width 15.7 11.0 - 16.0 % [facility] Platelet Count 315 160 - 400 X10*3/uL [facility] Mean Platelet Volume 10.0 9.4 - 12.3 fL [facility] Neutrophils Percent Auto 53.2 45 - 73 % [facility] Imm Gran Pct Auto 0.1 0.0 - 0.4 % [facility] Lymphocytes Percent Auto 35.4 20 - 40 % [facility] Monocytes Percent Auto 7.7 2 - 11 % [facility] Eosinophils Percent Auto 2.8 0 - 4 % [facility] Basophils Percent Auto 0.8 0 - 2 % [facility] NRBC Pct Auto 0.0 0.0 - 0.2 /100WBC [facility] Neutrophils Absolute Auto 4.5 2.0 - 8.3 x10*3/uL [facility] Imm Gran Abs Auto 0.01 0.00 - 0.03 X10*3/uL [facility] Lymphocytes Absolute Auto 3.0 1.2 - 4.9 X10*3/uL [facility] Monocytes Absolute Auto 0.6 0.1 - 1.2 X10*3/uL [facility] Eosinophils Absolute Auto 0.2 0.0 - 0.4 X10*3/uL [facility] Basophils Absolute Auto 0.1 0.0 - 0.2 X10*3/uL [facility] NRBC Abs Auto 0.000 0.0 - 0.012 X10*3/uL [facility] Blood Venous blood specimen / Unknown 05/09/2024 12:28 PM EST 05/09/2024 12:56 PM EST us Dahlia Murphy NP LAB BLOOD ORDERABLES Final Resul t [facility] [address] [place] [phone] * (ABNORMAL) Hemoglobin A1c (05/09/2024 12:28 PM EST) Hemoglobin A1c 7.3(H) <6.0 % [facility] Comment:Hemoglobin A1C Refer ence Range Adults: 4.8 - 6.0 % Non diabetic: < 6.0 % Goal: < 7.0 %Additional Action Suggested: > 8.0 %Note: Hemoglobin A1c results are invalid for patients with abnormal amounts of HbF. Blood transfusions may impact the HbA1c concentration in the patient sample. Estimated Average Glucose 163 mg/dL [facility] Comment:eAG = Estimated ave rage glucose which is %A1C expressed asaverage glucose, using the formula of the U0I-ArgwkikHapeoer Glucose study (ADAG), Diabetes Care, Vol.31,#8,Dec. 2007 Blood Venous blood specimen / Unknown 05/09/2024 12:28 PM EST 05/09/2024 12:56 PM EST us Dahlia Graef CORPORATE GIVING MANAGER LAB BLOOD ORDERABLES Final Resul t Performing Organization Address [facility]/ZIP Co de Phone Number [facility] [address] [place] [address] [phone] * (ABNORMAL) Comprehensive Metabolic Panel (05/09/2024 12:28 PM EST) Sodium 138 135 - 145 mmol/L [facility] Potassium 3.9 3.3 - 5.1 mmol/L [facility] Chloride 102 96 - 108 mmol/L [facility] Carbon Dioxide 28 22 - 29 mmol/L [facility] Anion Gap 12 12 - 20 [facility] Urea Nitrogen (BUN) 9 9 - 16 mg/dL [facility] Creatinine, Serum 0.56 0.5 - 1.4 mg/dL [facility] Estimated Glomerular Filt Rate >60 [facility] Comment:Chronic Kidney Disea se: Estimated GFR < 60 mL/min/1.89t4Btgufb Kidney Disease: Estimated GFR < 15 mL/min/1.73m2 Glucose 110 60 - 115 mg/dL [facility] Calcium 9.4 8.4 - 10.2 mg/dL [facility] Bilirubin, Total 0.3 0.0 - 1.0 mg/dL [facility] Aspartate Amino Transferase 26 5 - 31 U/L [facility] Alanine Aminotransferase 31 0 - 31 U/L [facility] Total Protein 7.3 6.5 - 8.0 g/dL [facility] Albumin Level 4.5 3.5 - 5.0 g/dL [facility] Alkaline Phosphatase 36(L) 39 - 117 U/L [facility] Blood Venous blood specimen / Unknown 05/09/2024 12:28 PM EST 05/09/2024 12:56 PM EST us Dahlia Murphy CORPORATE GIVING MANAGER LAB BLOOD ORDERABLES Final Resul t Performing Organization Address [facility]/ZIP Co de Phone Number [facility] [address] [place] [address] [phone] * (ABNORMAL) POCT HGB A1C (05/09/2024 11:46 AM EST) Hemoglobin A1C 7.4(A) 4.0 - 6.0 % QC Media Lot # [id number] Lot# Expiration Date Blood 05/09/2024 11:4 6 AM EST Result [facility] Dahlia Murphy NP POINT OF CARE TEST ENTER/EDIT OR DERABLES Final Result * Referral to Ophthalmology (11/07/2023) Result [facility] Dahlia Murphy CORPORATE GIVING MANAGER OUTPATIENT REFERRAL ORDERABLES F inal Result * Albumin, Random Urine W/O Creatinine (10/16/2022 8:16 AM EDT) Albumin, Urine 36.0 See Note: mg/dL [facility] Comment: Reference Range: Reference Range Not established Verified by repeat analysis. [employer] [place] [facility] Comment: The ADA defines abnormalities in albumin excretion as follows: Albuminuria Category ? Result (mcg/mg creatinine) Normal to Mildly increased ?<30 Moderately increased ?30-299 Severely increased ?> OR = 300 The ADA recommends that at least two of three specimens collected within a 3-6 month period be abnormal before considering a patient to be within a diagnostic category. Urine Urine specimen obtained by clean catch procedure / Unknown 10/16/2022 8:16 AM EDT 10/16/2022 8:16 AM EDT Narrative [facility] - 10/16/2022 10:25 PM EDT FASTING:YES FASTING: YES Result [facility] Tania Heck LEAF TIER LAB URINE ORDERABLES Final Result [facility] [address], [place] [address] [facility] [employer] [facility] [address] [place] [address] * (ABNORMAL) Lipid Panel, Standard (10/16/2022 8:16 AM EDT) Cholesterol, Total 126 <200 mg/dL [facility] HDL Cholesterol 32(L) > OR = 50 mg/dL [facility] [employer] [facility] Triglycerides 236(H) <150 mg/dL [facility] Comment: If a non-fasting specimen was collected, consider repeat triglyceride testing on a fasting specimen if clinically indicated. Addis et al. J. of Clin. Lipidol. 2015;9:129-169. LDL Cholesterol 65 mg/dL (calc) [facility] [place] [facility] Comment: Reference range: <100 Desirable range <100 mg/dL for primary prevention; ?? <70 mg/dL for patients with CHD or diabetic patients with > or = 2 CHD risk factors. LDL-C is now calculated using the Suzy calculation, which is a validated novel method providing better accuracy than the Friedewald equation in the estimation of LDL-C. Mitch GARNER et al. ARELY. 2013;310(19): 6117-6696 (http://education.[employer]/faq/QJI876) Chol/HDLC Ratio 3.9 <5.0 (calc) [facility] [place] [facility] Non-HDL Cholesterol 94 <130 mg/dL (calc) [facility] Comment: For patients with diabetes plus 1 major ASCVD risk factor, treating to a non-HDL-C goal of <100 mg/dL (LDL-C of <70 mg/dL) is considered a therapeutic option. Blood Venous blood specimen / Unknown 10/16/2022 8:16 AM EDT 10/16/2022 8:16 AM EDT Narrative [facility] - 10/16/2022 10:25 PM EDT FASTING:YES FASTING: YES Tania Heck LEAF TIER LAB BLOOD ORDERABLES Final Result [facility] [address], [place] [address] [facility] [employer] [facility] [address] [place] [address] * HM PAP/HPV (08/03/2022) Pathologist [facility] Pap Negative for intraephithelial lesion or malignancy Negative for intraephithelial lesion or malignancy, Epithelial cell abnormality HPV Not Detected Undetected, Indeterminate, Quantitative, Not Detected Historical Provider MD HEALTH MAINTENANCE Final Result * HEPATITIS C AB W/REFL TO HCV RNA, QN, PCR (03/08/2022 8:59 AM EDT) Pathologist [facility] HEPATITIS C ANTIBODY NON-REACTI VE NON-REACT KENY [facility] INDEX 0.05 <1.00 [facility] Comment: ?? HCV antibody was non-reactive. There is no laboratory ?? evidence of HCV infection. ?? In most cases, no further action is required. However, if recent HCV exposure is suspected, a test for HCV RNA (test code 74597) is suggested. ?? For additional information please refer to http://education.[employer]/faq/EKO36i6 (This link is being provided for informational/ educational purposes only.) ?? 03/08/2022 8:59 AM EDT Tania Heck LEAF TIER HISTORICAL/NON ORDERABLE L ABS Final Result [facility] * HIV 1/2 ANTIGEN/ANTIBODY,FOURTH GENERATION W/RFL (03/08/2022 8:59 AM EDT) Pathologist [facility] HIV-1/2 ANTIGEN AND ANTIBODIES, 4TH GENERATION W/ REFLEX NON-REACT KENY NON-REACT KENY [facility] Comment: HIV-1 antigen and HIV-1/HIV-2 antibodies were not detected. There is no laboratory evidence of HIV infection. ?? PLEASE NOTE: This information has been disclosed to you from records whose confidentiality may be protected by state law. ??If your state requires such protection, then the state law prohibits you from making any further disclosure of the information without the specific written consent of the person to whom it pertains, or as otherwise permitted by law. A general authorization for the release of medical or other information is NOT sufficient for this purpose. ? For additional information please refer to http://education.[employer] [place]/faq/ACD576 (This link is being provided for informational/ educational purposes only.) ? The performance of this assay has not been clinically validated in patients less than 2 years old. ?? 03/08/2022 8:59 AM EDT Tania Heck LEAF TIER LAB BLOOD ORDERABLES Final Result [facility]VERT[facility]GAC[facility] LAB[facility] from Last 3 Months or Most Recently Relevant to Health Maintenance Insurance [facility] DENTAL - HSN PARTIAL (MEDICAID) Care Teams Ice Guard Skating Rink Relationship Specialty Start Date End Date Dahlia Murphy NP [address] [place] [address] PCP - General Family Medicine 06/25/23
--- OUTSIDE RECORDS SUMMARY | 2024-07-21 11:49 | XMS_ITS | Encounter Summary ---
Author Organization [employer] [facility] Address [address] [place] [address] [address] [place] [address] Care Team Providers Care Coal Passer Name Role Phone Colette Nargis SENIOR ELECTRICAL ENGINEER Primary Care Provider [phone] Dahlia Murphy SENIOR ELECTRICAL ENGINEER Primary Care Provider [phone] Reason for Visit * Reason Comments Med Refill Encounter Details Date Type Department Care Team (Late st Contact Info) Description 06/05/2023 Refill [facility] [address] [place] [address] Miriam Serrano FNP [address] [place] [address] Essential hypertension Social History Tobacco Use Types [...] Description 08/01/2024 3:15 PM EDT Office Visit [facility] [address] [place] [phone] Dahlia Murphy NP [address] [place] [address] documented as of this encounter Visit Diagnoses Diagnosis Essential hypertension Unspecified essential hypertension documented in this encounter Additional Health Concerns Assessment Noted Time PHQ-9 Depression Total Score: 11 023 2:37 PM EST documented as of this encounter Care Teams Coal Passer Relationship Specialty Start Date End Date Nargis Alvarenga NP [address] [place] [address] PCP - General Family Medicine 02/16/23 06/24/23 Dahlia Murphy NP [address] [place] [address] PCP - General Family Medicine 06/25/23 documented as of this encounter
--- OUTSIDE RECORDS SUMMARY | 2024-07-21 11:50 | XMS_ITS | Encounter Summary ---
Author Organization [employer] [facility] Address [address] [place] [address] Care Team Providers Care Quality Control Name Role Phone Tania Heck Primary Care Provider [phone] Nargis Alvarenga COMMERCIAL INSTALLER Primary Care Provider [phone] Dahlia Murphy COMMERCIAL INSTALLER Primary Care Provider [phone] Reason for Visit * Reason Comments Med Refill Encounter Details Date Type Department Care Team (Late st Contact Info) Description 12/25/2022 Refill [facility] MEDICINE [address] [place] [address] Tania Heck FNP [address] [place] [address] Dept [place] [address] Dizziness and giddiness Social History Tobacco Use Types Packs/Day Years [...] 08/01/2024 3:15 PM EDT Office Visit [facility] [address] [place] [address] Dahlia Murphy, TIFFANY [address] [place] [address] documented as of this encounter Visit Diagnoses Diagnosis Dizziness and giddiness documented in this encounter Additional Health Concerns Assessment Noted Time PHQ-9 Depression Total Score: 11 023 2:37 PM EST documented as of this encounter Care Teams Quality Control Relationship Specialty Start Date End Date Tania Heck FNP PCP - General Family Medicine 03/07/21 02/15/23 Nargis Alvarenga NP [address] [place] [address] PCP - General Family Medicine 02/16/23 06/24/23 Dahlia Murphy NP [address] [place] [address] PCP - General Family Medicine 06/25/23 documented as of this encounter
== END 2024-07-21 10:58 | disposition home or self-care (01) ==
PROVIDERS: PCP Registered Nurse; Visit Provider Internal Medicine Cardiovascular Disease
DX: I49.3 Ventricular premature depolarization (principal)
CPT/HCPCS: 93010; 99213; G2211

== ENCOUNTER → 2024-07-21 10:28 | Outpatient (BNVA) | payer OTHER, SELFPAY | PROVIDERS: PCP Registered Nurse; Visit Provider Internal Medicine Cardiovascular Disease | DX: I49.3 Ventricular premature depolarization (principal) | CPT/HCPCS: 93005 ==

== ENCOUNTER 2024-07-24 11:01 | Outpatient (AMB) | payer OTHER, SELFPAY ==
--- NOTE | 2024-07-24 11:03 | MHC.OFFVIS ---
Intake Visit Reasons: abscess right buttock Intake Note: Patient referred by Dr. Mazariegos for abscess on Lt buttock. Present for 6m. Finished Doxycycline 100mg bid X10d course. Patient c/o: swelling, pain. Denies oozing. Concrete Block Maker Required: Yes Accompanied by: Self / Same As Patient Allergies dextran sulfate Adverse Reaction (Verified 07/24/24 11:07) Unknown HPI Comments Details: Patient presents with a several month history of a left buttock soft tissue mass. It becomes inflamed and she was given antibiotics by medical doctor and the symptoms improved but it has cause recurrent episodes of inflammation and symptomatology. She would like to have it removed. Patient was a history of right forearm sarcoma and is concerned that this process may be related to the that. She has no such lesions elsewhere. Chart was reviewed and patient evaluated [facility] Medical History PVC (premature ventricular contraction) Arthritis Abnormal uterine bleeding Cardiac arrhythmia Scoliosis Fibromyalgia Carpal tunnel syndrome Panic attacks High cholesterol Type 2 diabetes mellitus Surgical History Hx of esophagogastroduodenoscopy Hx of colonoscopy H/O excision of mass Tubal ligation status S/P repair of ventral hernia (~11/2017) H/O excision of mass Previous section Myxoinflammatory fibroblastic sarcoma (~08/2017) Family History Father History of stroke History of prostate cancer Mother History of breast cancer History of diabetes mellitus History of cardiovascular disorder Social History Household Members: Spouse and Children Housing: Apartment Alcohol intake: former Patient Tobacco Use Status: Current everyday Tobacco user Tobacco use type: Cigarette Cigarettes Per Day: 6 Years Smoked: 15 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 At present, no evidence of any infection or fluctuance. Extrem Other: patient was a large mid volar forearm scar from her prior sarcoma excision. Assessment & Plan Assessment & Plan (1) Mass of soft tissue: Code(s): M79.89 - Other specified soft tissue disorders Category: Surgical Plan As noted above, patient was like to have this excised. Risks, benefits, alternatives of excision left buttock soft tissue mass were reviewed with the patient and included but not limited to bleeding, infection, recurrence, numbness, pain, scarring, seroma formation, wound dehiscence and the patient wishes to proceed. All questions answered. Arrangements will be made for this on a day which is convenient for her. Coding Level of Care Code New Pt Level 5 (87755) Diagnoses Mass of soft tissue M79.89
--- OUTSIDE RECORDS SUMMARY | 2024-07-24 14:13 | XMS_ITS | Encounter Summary ---
Author Organization [employer] [facility] Address [address] [place] [address] [address] [place] [address] Care Team Providers Care Zig Zag Stitcher Name Role Phone Colette Nargis EDGER HAND Primary Care Provider [phone] Dahlia Murphy EDGER HAND Primary Care Provider [phone] Reason for Visit * Reason Comments Med Refill Encounter Details Date Type Department Care Team (Late st Contact Info) Description 06/05/2023 Refill [facility] MED[facility]INE [address] [place] [address] Miriam Serrano FNP [address] [place] [address] Essential hypertension Social History Tobacco Use Types [...] Description 08/01/2024 3:15 PM EDT Office Visit [facility] [address] [place] [address] Dahlia Murphy NP [address] [place] [address] documented as of this encounter Visit Diagnoses Diagnosis Essential hypertension Unspecified essential hypertension documented in this encounter Additional Health Concerns Assessment Noted Time PHQ-9 Depression Total Score: 11 023 2:37 PM EST documented as of this encounter Care Teams Zig Zag Stitcher Relationship Specialty Start Date End Date Nargis Alvarenga NP [address] [place] [address] PCP - General Family Medicine 02/16/23 06/24/23 Dahlia Murphy NP [address] [place] [address] PCP - General Family Medicine 06/25/23 documented as of this encounter
--- OUTSIDE RECORDS SUMMARY | 2024-07-24 14:13 | XMS_ITS | Encounter Summary ---
Author Organization [employer] Address [address] [facility] 7t [place] [address] Care Team Providers Care In Store Marketer Name Role Phone Dahlia Murphy NP Primary Care Provider [phone] Reason for Visit * Reason Comments Med Refill Encounter Details Date Type Department Care Team ([facility] st Contact Info) Description 06/24/2024 Refill [facility] [address] [place] [address] Dahlia Murphy NP [address] [facility] [place] [address] Iron deficiency anemia due to chronic blood [...] Description 08/01/2024 3:15 PM EDT Office Visit [facility] [address] [place] [address] Dahlia Murphy NP [address] [place] [address] documented as of this encounter Visit Diagnoses Diagnosis Iron deficiency anemia due to chronic blood loss Iron deficiency anemia secondary to blood loss (chronic) documented in this encounter Additional Health Concerns Assessment Noted Time PHQ-9 Depression Total Score: 16 024 11:51 AM EST documented as of this encounter Care Teams In Store Marketer Relationship Specialty Start Date End Date Dahlia Murphy NP [address] [place] [address] PCP - General Family Medicine 06/25/23 documented as of this encounter
--- OUTSIDE RECORDS SUMMARY | 2024-07-24 14:13 | XMS_ITS | Encounter Summary ---
Author Organization [employer] Address [address] [place] [address] 7 [place] [address] Care Team Providers Care Lathe Tender Name Role Phone Dahlia Murphy NP Primary Care Provider Reason for Referral * Consultation (Routine) - Closed Specialty Diagnoses / Procedures Referred By Contac t Referred To Contact General Surgery Diagnoses Abscess of buttock, right Amarilis Mazariegos MD [address] [place] [address] Phone: tel: fax: Mikel Monteiro MD [address] [place] [address] Phone: tel: fax: Referral ID Status Reason Start Date Expiration Date V isits Requested Visits Authorized [id number] Closed Specialty Services Required 07/15/2024 07/15/2025 1 1 Reason for Visit * Reason Comments abcess on luz marinaon Encounter Details Date Type Department Care Team (Late st Contact Info) Description 07/15/2024 9:00 AM EST Office Visit [facility] [address] [place] [address] Amarilis Mazariegos MD [address] [place] [address] Abscess of buttock, right (Primary Dx) Social [...] to walk in clinic for abcess on [facility]. Pt reports she suspects abscess on [...] Description 08/01/2024 3:15 PM EDT Office Visit [facility] [address] [place] [address] Dahlia Murphy NP [address] [place] [address] Scheduled Referrals Name Type Priority Associated Diagnoses [...] documented as of this encounter Care Teams Lathe Tender Relationship Specialty Start Date End Date Dahlia Murphy NP [address] [place] [address] PCP - General Family Medicine 06/25/23 documented as of this encounter
--- OUTSIDE RECORDS SUMMARY | 2024-07-24 14:13 | XMS_ITS | Clinical Summary ---
Author Organization [employer] Address [address] [place] [address] 7t [place] [address] Care Team Providers Care Body Artist Name Role Phone Dahlia Murphy NP Primary Care Provider [phone] Allergies No known active allergies Medications * [...] 20 mg by mouth in the morning. 3 Active hydrOXYzine HCl (Atarax) 50 MG tablet TAKE 1 TABLET BY MOUTH THREE TIMES DAILY NEEDED FOR ANXIETY OR FOR SLEEP 3 Active Alcohol Swabs (Alcohol Pads) 70 % padsIndications:T ype 2 diabetes mellitus without complication, without long-term current use of insulin (CMS/HCC) 1 each 3 times daily. Use 3 time daily to test blood sugar 100 each 4 Active glucose blood (FREESTYLE LITE) test stripIndications: Type 2 diabetes mellitus without complication, without long-term current use of insulin (CMS/HCC) 1 each by Other route 3 times daily. Use as instructed 100 each 4 Active TRUEplus Lancets 33G miscIndications:T ype 2 diabetes mellitus without complication, without long-term current use of insulin (CMS/HCC) 1 each 3 times daily. Use to test blood sugar 3 times daily 100 each 4 Active nicotine polacrilex (Nicorette) 4 MG gumIndications:To bacco user Chew 1 each (4 mg) if needed for smoking cessation. 100 each 1 4 Active naproxen (Naprosyn) 500 MG tabletIndications :Muscle pain take 1 tablet by oral route 2 times every day with food prn 30 tablet 1 4 Active cyclobenzaprine (Flexeril) 10 MG tabletIndications :Muscle pain TAKE 1 TABLET BY MOUTH BEFORE BEDTIME NEEDED 30 tablet 4 Active fluticasone (Flonase) 50 MCG/ACT nasal sprayIndications: Seasonal allergic rhinitis, unspecified trigger spray 1 - 2 spray by intranasal route every day in each nostril as needed for 14 days , please request as TRIAL , no need long time use -thanks 48 g 4 Active albuterol 108 (90 Base) MCG/ACT inhaler Inhale 2 puffs every 6 (six) hours if needed for wheezing. 18 g 1 4 09/13/19 25 Active azithromycin (Zithromax Z-Jarret) 250 MG tablet Take 2 tabs day 1 and then 1 tab daily to finish 6 tablet 4 Active Dextromethorphan- guaiFENesin (Mucinex DM) 30-600 MG tablet sustained-release 12 hour Use 1 tab TID 28 tablet 4 Active acetaminophen (Tylenol) 500 MG tablet Take 1 tablet (500 mg) by mouth every 6 (six) hours if needed for mild pain for up to 20 doses. 20 tablet 4 Active metFORMIN (Glucophage) 1000 MG tabletIndications :Type 2 diabetes mellitus without complication, without long-term current use of insulin (CMS/HCC) TAKE 1 TABLET BY MOUTH TWICE DAILY IN THE MORNING AND IN THE EVENING WITH FOOD 180 tablet 2 4 Active Ascorbic Acid (vitamin C) 500 MG tabletIndications :Iron deficiency anemia secondary to blood loss (chronic) TAKE 2 TABLETS BY MOUTH ONCE DAILY IN THE MORNING 180 tablet 1 4 Active omega-3 (Fish Oil) 1000 MG capsuleIndication s:High cholesterol TAKE 1 CAPSULE BY MOUTH EVERY MORNING 90 capsule 1 4 Active Farxiga 10 MGIndications:Typ e 2 diabetes mellitus without complication, without long-term current use of insulin ([facility]/HCC) TAKE 1 TABLET BY MOUTH EVERY MORNING 90 tablet 1 4 Active losartan (Cozaar) 25 MG tabletIndications :Essential hypertension TAKE 1 TABLET BY MOUTH EVERY MORNING 90 tablet 4 Active Multiple Vitamin (Multivitamin) tabletIndications :Health care maintenance TAKE 1 TABLET BY MOUTH EVERY MORNING 90 tablet 4 Active nicotine (Nicoderm CQ) 14 MG/24HR patchIndications: Tobacco user Place 1 patch on the skin 1 (one) time each day at the same time. 30 patch 4 Active atorvastatin (Lipitor) 80 MG tabletIndications :Hypertriglycerid emia TAKE 1 TABLET BY MOUTH EVERY MORNING 90 tablet 5 Active ferrous gluconate (Fergon) 324 (38 Fe) MG tabletIndications :Iron deficiency anemia due to chronic blood loss TAKE 1 TABLET BY MOUTH EVERY OTHER DAY IN THE MORNING 45 tablet 5 Active doxycycline (Vibramycin) 100 MG capsuleIndication s:Abscess of buttock, right Take 1 capsule (100 mg) by mouth 2 times daily for 10 days. Take with at least 8 ounces (large glass) of water, do not lie down for 30 minutes after 20 capsule 5 07/26/19 25 Active Hospital, Clinic, or Other Facility Administered Medication [...] hernia 11/20/2023 Overview (11/20/2023): Was repaired at [facility] in the past, she does not think [...] Encounters Date Type Department Care Team Description 07/22/2024 Telephone [facility] [address] [place] [address] Chrissie Huizar MA Chart Prep 07/15/2024 9:00 AM EST Office Visit [facility] [address] [place] [address] Amarilis Mazariegos MD Abscess of buttock, right (Primary Dx) 06/24/2024 Refill [facility] [address] [place], [place] [phone] aDhlia Murphy NP Iron deficiency anemia due to chronic blood loss 06/17/2024 4:00 PM EST Office Visit [facility] [address] [place] [address] Dahlia Murphy NP Type 2 diabetes mellitus with hyperglycemia, without long-term current use of insulin (CMS/[facility]) (Primary Dx); Tobacco user; Dietary counseling; Exercise counseling; Morbid obesity (CMS/HCC) 06/05/2024 Telephone [facility] [address] [place] [address] Chrissie Huizar MA Chart Prep 05/28/2024 Refill [facility] [address] [place], [place] [phone] Dahlia Murphy NP Hypertriglyceridemia 05/15/2024 Telephone [facility] [address] [place] [phone] Dahlia Murphy NP 05/09/2024 11:15 AM EST Office Visit [facility] [address] [place] [address] Dahlia Murphy NP Type 2 diabetes mellitus with hyperglycemia, without long-term current use of insulin ([facility]) (Primary Dx); Breast pain; Tobacco user; Dietary counseling; Exercise counseling 05/09/2024 Telephone [facility] [address] [place], [place] [phone] Liliam Parra RN 05/05/2024 Refill [facility] [address] [place], [place] [phone] Dahlia Murphy NP Essential hypertension; Health care [...] Office Visit [facility] [address] [place] [address] Dahlia Murphy NP [address] [place] [address] Health Maintenance Due Date Last Done Comments [...] 05/09/2025 05/09/2024 Depression Screening 05/09/2025 05/09/2024, 05/09/20 Tobacco Screening 06/17/2025 06/17/2024 Eye Exam 11/06/2025 [...] EST Narrative 07/07/2024 12:46 PM EST ? [facility] ? [address] ?[place] [address] ? Ultrasound Report ? Signed ? Patient: Castanon Mcdowell,Michelle ?MR#: MM ?? [id number] ? : 1985 ?Acct:[id number] ? Age/Sex: 39 / F ?ADM Date: 07/07/24 ? Loc: HO.MAMMO ? Attending Dr: Dahlia Murphy CUT OFF TENDER GLASS ? Ordering Physician: Dahlia Murphy NP ?? Date of Service: 07/07/24 ?? Procedure(s): US breast LT limited mamm only ?? Accession Number(s): [id number] ? cc: Dahlia Murphy NP ? EXAMINATION: [...] ??Jannette Marie DO ??07/07/2024 12:43 PM EST ?? RP ? Dictated By: ?Jannette Marie DO ? Signed By: ?<Electronically signed by Jannette Marie, DO in OV> ? 07/07/24 1243 ? DD/ 1215 ? TD/TT: 07/07/24 1235 ? Nurse Advocate: ? Procedure Note Donoternainterpreter, Image - 07/07/2024 [facility] [address] [place] [address] Ultrasound Report Signed Patient: Michelle HernandezMR#: [id number] : 1985Acct:[id number] Age/Sex: 39 / FADM Date: 07/07/24 Loc: HO.MAMMO Attending Dr: Dahlia Murphy CUT OFF TENDER GLASS Ordering Physician: Dahlia Murphy NP Date of Service: 07/07/24 Procedure(s): breast LT limited mamm only Accession Number(s): [id number] cc: Dahlia Murphy CUT OFF TENDER GLASS EXAMINATION: MM DIAGNOSTIC DIGITAL BREAST TOMOSYNTHESIS, BILATERAL [...] 07/07/24 1243 DD/ 1215 TD/TT: 07/07/24 1235 Nurse Advocate: us Dahlia Murphy CUT OFF TENDER GLASS IMG US PROCEDURES Final Result * BI Mammogram Diagnostic Tomosynthesis Bilateral (07/07/2024 11:45 AM EST) Anatomical Region Laterality Modality Breast Bilateral Mammography 07/07/2024 11:4 5 AM EST Narrative 07/07/2024 12:46 PM EST ? [facility] ? [address] [facility] ?[place] [address] ? Mammography Report ? Signed ? Patient: Castanon Mcdowell,Michelle ?MR#: [id number] ?? [id number] ? : 1985 ?Acct:[id number] ? Age/Sex: 39 / F ?ADM Date: 02/24/25 ? Loc: HO.MAMMO ? Attending Dr: Dahlia B Graef CUT OFF TENDER GLASS ? Ordering Physician: Graef,Dahlia B CUT OFF TENDER GLASS ?Results: 1Negati ?? ve ? Date of Service: 07/07/24 ?Follow Up: 1 Year From Orig ?? inal Mammogram ? Procedure(s): MM tomosynthesis diagnostic BI ?? Accession Number(s): [id number] ? cc: Dahlia Murphy CUT OFF TENDER GLASS ? EXAMINATION: ?? MM DIAGNOSTIC DIGITAL BREAST [...] DD/ 1145 ? TD/TT: 07/07/24 1209 ? Nurse Advocate: ? Procedure Note Donoternainterpreter, Image - 07/07/2024 [facility] [address] [place] [address] Mammography Report Signed Patient: Michelle HernandezMR#: [id number] : 1985Acct:[id number] Age/Sex: 39 / FADM Date: 07/07/24 Loc: HO.MAMMO Attending Dr: Dahlia Murphy CUT OFF TENDER GLASS Ordering Physician: Dahlia Murphy NPResults: 1Negati ve Date of Service: 07/07/24Follow Up: 1 Year From Orig inal Mammogram Procedure(s): MM tomosynthesis diagnostic BI Accession Number(s): [id number] cc: Dahlia Murphy CUT OFF TENDER GLASS EXAMINATION: MM DIAGNOSTIC DIGITAL BREAST TOMOSYNTHESIS, BILATERAL [...] Jannette Marie DO 07/07/2024 12:43 PM EST Dictated By: Jannette Marie DO Signed By: <Electronically signed by Jannette Marie DO in OV> 07/07/24 1243 DD/ 1145 TD/TT: 07/07/24 1209 Nurse Advocate: Dahlia Murphy CUT OFF TENDER GLASS IMG BI PROCEDURES Final Result * POCT Glucose (06/17/2024 4:53 PM EST) Only the most recent of2 resultswithin the time period is included. Pathologist [facility] Glucose Blood, POC 112 60 - 200 mg/dL QC Media Lot # [id number] Lot# Expiration Date 62,425 Blood Capillary blood specimen / Unknown 06/17/2024 4:53 PM EST Dahlia Murphy NP POINT OF CARE TEST ENTER/EDIT OR DERABLES Final Result * TSH with Reflex to Free T4 (05/09/2024 12:28 PM EST) TSH reflex Free T4 2.34 0.32 - 4.0 uIU/mL [facility] Blood Venous blood specimen / Unknown 05/09/2024 12:28 PM EST 05/09/2024 12:56 PM EST us Dahlia Maxtim CUT OFF TENDER GLASS LAB BLOOD ORDERABLES Final Resul t [facility] [address] [place] [address] [phone] * (ABNORMAL) CBC auto differential (05/09/2024 12:28 PM EST) White Blood Count 8.4 4.8 - 10.8 X10*3/uL [facility] Red Blood Count 4.89 4.20 - 5.50 X10*6/uL [facility] Hemoglobin 12.5 12.0 - 16.0 g/dl [facility] Hematocrit 39.3 37.0 - 47.0 % [facility] Mean Corpuscular Volume 80.4 80.0 - 98.0 fL [facility] Mean Corpuscular Hemoglobin 25.6(L) 27.0 - 33.0 pg [facility] Mean Corpuscular HGB Conc 31.8 31.0 - 35.0 g/dl [facility] Red Cell Distribution Width 15.7 11.0 - 16.0 % [facility] Platelet Count 315 160 - 400 X10*3/uL [facility] Mean Platelet Volume 10.0 9.4 - 12.3 fL [facility] Neutrophils Percent Auto 53.2 45 - 73 % [facility] Imm Gran Pct Auto 0.1 0.0 - 0.4 % [facility] Lymphocytes Percent Auto 35.4 20 - 40 % [facility] Monocytes Percent Auto 7.7 2 - 11 % [facility] Eosinophils Percent Auto 2.8 0 - 4 % [facility] Basophils Percent Auto 0.8 0 - 2 % [facility] NRBC Pct Auto 0.0 0.0 - 0.2 /100WBC [facility] Neutrophils Absolute Auto 4.5 2.0 - 8.3 x10*3/uL [facility] Imm Gran Abs Auto 0.01 0.00 - 0.03 X10*3/uL [facility] Lymphocytes Absolute Auto 3.0 1.2 - 4.9 X10*3/uL [facility] Monocytes Absolute Auto 0.6 0.1 - 1.2 X10*3/uL [facility] Eosinophils Absolute Auto 0.2 0.0 - 0.4 X10*3/uL [facility] Basophils Absolute Auto 0.1 0.0 - 0.2 X10*3/uL [facility] NRBC Abs Auto 0.000 0.0 - 0.012 X10*3/uL [facility] Blood Venous blood specimen / Unknown 05/09/2024 12:28 PM EST 05/09/2024 12:56 PM EST Dahlia Murphy NP LAB BLOOD ORDERABLES Final Resul t Performing Organization Address [facility] Co de Phone Number [facility] [address] [place] [phone] * (ABNORMAL) Hemoglobin A1c (05/09/2024 12:28 PM EST) Hemoglobin A1c 7.3(H) <6.0 % [facility] Comment:Hemoglobin A1C Refer ence Range Adults: 4.8 - 6.0 % Non diabetic: < 6.0 % Goal: < 7.0 %Additional Action Suggested: > 8.0 %Note: Hemoglobin A1c results are invalid for patients with abnormal amounts of HbF. Blood transfusions may impact the HbA1c concentration in the patient sample. Estimated Average Glucose 163 mg/dL [facility] Comment:eAG = Estimated ave rage glucose which is %A1C expressed asaverage glucose, using the formula of the Z3W-HqcmvtjAuxwusy Glucose study (ADAG), Diabetes Care, Vol.31,#8,Dec. 2007 Blood Venous blood specimen / Unknown 05/09/2024 12:28 PM EST 05/09/2024 12:56 PM EST Dahlia Mruphy NP LAB BLOOD ORDERABLES Final Resul t Performing Organization Address City/[facility]/ZIP Co de Phone Number [facility] [address] [place] [address] [phone] * (ABNORMAL) Comprehensive Metabolic Panel (05/09/2024 12:28 PM EST) Sodium 138 135 - 145 mmol/L [facility] Potassium 3.9 3.3 - 5.1 mmol/L [facility] Chloride 102 96 - 108 mmol/L [facility] Carbon Dioxide 28 22 - 29 mmol/L [facility] Anion Gap 12 12 - 20 [facility] Urea Nitrogen (BUN) 9 9 - 16 mg/dL [facility] Creatinine, Serum 0.56 0.5 - 1.4 mg/dL [facility] Estimated Glomerular Filt Rate >60 [facility] Comment:Chronic Kidney Disea se: Estimated GFR < 60 mL/min/1.63m7Tsxmob Kidney Disease: Estimated GFR < 15 mL/min/1.73m2 Glucose 110 60 - 115 mg/dL [facility] Calcium 9.4 8.4 - 10.2 mg/dL [facility] Bilirubin, Total 0.3 0.0 - 1.0 mg/dL [facility] Aspartate Amino Transferase 26 5 - 31 U/L [facility] Alanine Aminotransferase 31 0 - 31 U/L [facility] Total Protein 7.3 6.5 - 8.0 g/dL [facility] Albumin Level 4.5 3.5 - 5.0 g/dL [facility] Alkaline Phosphatase 36(L) 39 - 117 U/L [facility] Blood Venous blood specimen / Unknown 05/09/2024 12:28 PM EST 05/09/2024 12:56 PM EST us Dahlia Murphy NP LAB BLOOD ORDERABLES Final Resul t [facility] [address] [place] [address] [phone] * (ABNORMAL) POCT HGB A1C (05/09/2024 11:46 AM EST) Hemoglobin A1C 7.4(A) 4.0 - 6.0 % QC Media Lot # [id number] Lot# Expiration Date ,983 Blood 05/09/2024 11:4 6 AM EST Result [facility] Dahlia Murphy NP POINT OF CARE TEST ENTER/EDIT OR DERABLES Final Result * Referral to Ophthalmology (11/07/2023) Dahlia Murphy CUT OFF TENDER GLASS OUTPATIENT REFERRAL ORDERABLES F inal Result * Albumin, Random Urine W/O Creatinine (10/16/2022 8:16 AM EDT) Pathologist [facility] [place] Albumin, Urine 36.0 See Note: mg/dL [facility] Comment: Reference Range: Reference Range Not established Verified by repeat analysis. [employer] [place] [facility] Comment: The ADA defines abnormalities in albumin [...] 10:25 PM EDT FASTING:YES FASTING: YES Result [facility] Tania Heck RADIATOR FITTER LAB URINE ORDERABLES Final Result [facility] [address], [place] [address] [employer] [place] [facility] [address] [place] [phone] * (ABNORMAL) Lipid Panel, Standard (10/16/2022 8:16 AM EDT) Cholesterol, Total 126 <200 mg/dL [employer] [place] [facility] HDL Cholesterol 32(L) > OR = 50 mg/dL [employer] [place] [facility] Triglycerides 236(H) <150 mg/dL [employer] [place] [facility] Comment: If a non-fasting specimen was collected, consider repeat triglyceride testing on a fasting specimen if clinically indicated. Addis et al. J. of Clin. Lipidol. 2015;9:129-169. LDL Cholesterol 65 mg/dL (calc) [employer] [place] [facility] Comment: Reference range: <100 Desirable range <100 mg/dL for primary prevention; ?? <70 mg/dL for patients with CHD or diabetic patients with > or = 2 CHD risk factors. LDL-C is now calculated using the Suzy calculation, which is a validated novel method providing better accuracy than the Friedewald equation in the estimation of LDL-C. Mitch SS et al. ARELY. 2013;310(19): 4017-7622 (http://education.Chronogolf/faq/MQB122) Chol/HDLC Ratio 3.9 <5.0 (calc) [employer] [place] [facility] Non-HDL Cholesterol 94 <130 mg/dL (calc) [employer] [place] [facility] Comment: For patients with diabetes plus 1 major ASCVD risk factor, treating to a non-HDL-C goal of <100 mg/dL (LDL-C of <70 mg/dL) is considered a therapeutic option. Blood Venous blood specimen / Unknown 10/16/2022 8:16 AM EDT 10/16/2022 8:16 AM EDT Narrative [facility] - 10/16/2022 10:25 PM EDT FASTING:YES FASTING: YES Tania Heck [facility] LAB BLOOD ORDERABLES Final Result [facility] [address], [place] [address] [employer] [place] [facility] [address] [place] [phone] * HM PAP/HPV (08/03/2022) Pap Negative for intraephithelial lesion or malignancy Negative for intraephithelial lesion or malignancy, Epithelial cell abnormality HPV Not Detected Undetected, Indeterminate, Quantitative, Not Detected Historical Provider MD HEALTH MAINTENANCE Final Result * HEPATITIS C AB W/REFL TO HCV RNA, QN, PCR (03/08/2022 8:59 AM EDT) HEPATITIS C ANTIBODY NON-REACTI VE NON-REACT KENY [facility] INDEX 0.05 <1.00 [facility] Comment: ?? HCV antibody was non-reactive. There is no laboratory ?? evidence of HCV infection. ?? In most cases, no further action is required. However, if recent HCV exposure is suspected, a test for HCV RNA (test code 44639) is suggested. ?? For additional information please refer to http://[employer].NeighborGoods/faq/OJH06k7 (This link is being provided for informational/ educational purposes only.) ?? 03/08/2022 8:59 AM EDT Tanialory Heck RADIATOR FITTER HISTORICAL/NON ORDERABLE L ABS Final Result [facility] * HIV 1/2 ANTIGEN/ANTIBODY,FOURTH GENERATION W/RFL (03/08/2022 8:59 AM EDT) HIV-1/2 ANTIGEN AND ANTIBODIES, 4TH GENERATION W/ [...] ? For additional information please refer to http://education.[employer].Viscose Closures/faq/CUS120 (This link is being provided for informational/ educational purposes only.) ? The performance of this assay has not been clinically validated in patients less than 2 years old. ?? 03/08/2022 8:59 AM EDT Tania Bolton Umang RADIATOR FITTER LAB BLOOD ORDERABLES Final Result [facility] from Last 3 Months or Most Recently Relevant to Health Maintenance Insurance [facility] - HSN PARTIAL (MEDICAID) Care Teams Body Artist Relationship Specialty Start Date End Date Dahlia Murphy NP [address] [place] [address] PCP - General Family Medicine 06/25/23
--- OUTSIDE RECORDS SUMMARY | 2024-07-24 14:13 | XMS_ITS | Encounter Summary ---
Author Organization [facility] Address [address] [place] [address] 7 [place] [address] Care Team Providers Care Insulation Nozzleman Name Role Phone Tania Heck Che FOOD AND DRUG RESEARCH SCIENTIST Primary Care Provider [phone] Nargis Alvarenga PROJECT LANDSCAPE ARCHITECT Primary Care Provider Dahlia Murphy NP Primary Care Provider [phone] Encounter Details Date Type Department Care Team (Late st Contact Info) Description 05/05/2022 Abstract [facility] D[facility]AL [address] [place] [address] Jame Richards DDS [address] [place] [address] Social History Tobacco Use Types Packs/Day Years [...] Description 08/01/2024 3:15 PM EDT Office Visit [facility] MEDICINE [address] [place] [address] Dahlia Murphy NP [address] [place] [address] documented as of this encounter Visit Diagnoses Not on filedocumented in this encounter Care Teams Insulation Nozzleman Relationship Specialty Start Date End Date Tania Heck FNP PCP - General Family Medicine 03/07/21 02/15/23 Nargis Alvarenga NP [address] [place] [address] PCP - General Family Medicine 02/16/23 06/24/23 Dahlia Murphy NP [address] [place] [address] PCP - General Family Medicine 06/25/23 documented as of this encounter
--- OUTSIDE RECORDS SUMMARY | 2024-07-24 14:13 | XMS_ITS | Encounter Summary ---
Author Organization [facility] Address [address] [place] [address] Care Team Providers Care Sales Executive Name Role Phone Tania Heck Primary Care Provider [phone] Nargis Alvarenga LATIN AMERICAN STUDIES PROFESSOR Primary Care Provider [phone] Dahlia Murphy NP Primary Care Provider [phone] Reason for Visit * Reason Comments Med Refill Encounter Details Date Type Department Care Team (Late st Contact Info) Description 04/19/2022 Refill [facility] MEDICINE [address] [place] [address] Tania Heck FNP [address] [place] [address] Dept [place] [address] Social History Tobacco Use Types Packs/Day Years [...] Description 08/01/2024 3:15 PM EDT Office Visit [facility] MEDICINE [address] [place] [address] Dahlia Murphy NP [address] [place] [address] documented as of this encounter Visit Diagnoses Not on filedocumented in this encounter Care Teams Sales Executive Relationship Specialty Start Date End Date Tania Heck FNP PCP - General Family Medicine 03/07/21 02/15/23 Nargis Alvarenga NP [address] [place] [address] PCP - General Family Medicine 02/16/23 06/24/23 Dahlia Murphy NP [address] [place] [address] PCP - General Family Medicine 06/25/23 documented as of this encounter
--- OUTSIDE RECORDS SUMMARY | 2024-07-24 14:13 | XMS_ITS | Encounter Summary ---
Author Organization [employer] Address [address] [facility] 7t [place] [address] Care Team Providers Care Solid Glass Rod Dowel Machine Operator Name Role Phone Dahlia Murphy NP Primary Care Provider [phone] Reason for Visit * Reason Onset Date Comments Chart Prep 07/22/2024 Encounter Details Date Type Department Care Team ([facility] st Contact Info) Description 07/22/2024 Telephone [facility] MEDICINE [address] [place] [address] Chrissie Huizar MA Chart Prep Social History Tobacco Use Types Packs/Day Years [...] encounter Miscellaneous Notes * Telephone Encounter - Chrissie Huizar MA - 07/22/2024 10:40 AM EDT Chart Prep Labs: not applicable Images: done Vaccines due: Covid, Flu Referrals: General surgeon appointment on 07/24/24 at 11:15 am Screenings: Foot Exam, Lipid panel, Urine protein Overdue care gaps: A1C, Glucose, SDOH documented in this encounter Plan of Treatment Upcoming Encounters Date Type Department Care Team (Late st Contact Info) Description 08/01/2024 3:15 PM EDT Office Visit [facility] MEDICINE [address] [place] [address] Dahlia Murphy NP [address] [place] [address] documented as of this encounter Visit Diagnoses Not on filedocumented in this encounter Additional Health Concerns Assessment Noted Time PHQ-9 Depression Total Score: 16 024 11:51 AM EST documented as of this encounter Care Teams Solid Glass Rod Dowel Machine Operator Relationship Specialty Start Date End Date Dahlia Murphy NP [address] [place] [address] PCP - General Family Medicine 06/25/23 documented as of this encounter
--- OUTSIDE RECORDS SUMMARY | 2024-07-24 14:13 | XMS_ITS | Encounter Summary ---
Author Organization [employer] Address [address] [place] [address] 7t [place] [address] Care Team Providers Care Outdoor Landscape Architect Name Role Phone Nargis Alvarenga HEATING UNIT MECHANIC Primary Care Provider [phone] Dahlia Murphy HEATING UNIT MECHANIC Primary Care Provider [phone] Reason for Visit * Reason Comments Med Refill Encounter Details Date Type Department Care Team ([facility] st Contact Info) Description 06/05/2023 Refill [facility] MED[facility]INE [address] [place] [address] Gaby Balderrama, ODILIA [address] [place] [address] Health care maintenance; Essential hypertension Social History [facility] [address] [place] [address] Dahlia Murphy NP [address] [place] [address] documented as of this encounter Visit Diagnoses Diagnosis Health care maintenance Essential hypertension Unspecified essential hypertension documented in this encounter Additional Health Concerns Assessment Noted Time PHQ-9 Depression Total Score: 11 023 2:37 PM EST documented as of this encounter Care Teams Outdoor Landscape Architect Relationship Specialty Start Date End Date Nargis [place] [address] PCP - General Family Medicine 02/16/23 06/24/23 Dahlia Murphy NP [address] [place] [address] PCP - General Family Medicine 06/25/23 documented as of this encounter
--- OUTSIDE RECORDS SUMMARY | 2024-07-24 14:13 | XMS_ITS | Encounter Summary ---
Author Organization [employer] Address [address] [place] [address] 7 [place] [address] Care Team Providers Care Lab Support Service Tech Name Role Phone Dahlia Murphy NP Primary Care Provider [phone] Reason for Visit * Reason Onset Date Comments Med Refill 07/24/2023 Encounter Details Date Type Department Care Team (Late st Contact Info) Description 07/24/2023 Telephone [facility] MEDICINE [address] [place] [address] Dahlia Murphy NP [address] [place] [address] Med Refill Social History Tobacco Use Types [...] 300 MG tablet To be sent to: [facility] - [place], [place] - [address] [facility] Pt needs meds for med box. documented in this encounter Plan of Treatment Upcoming Encounters Date Type Department Care Team ([facility] st Contact Info) Description 08/01/2024 3:15 PM EDT Office Visit [facility] MEDICINE [address] [place] [address] Dahlia Murphy NP [address] [place] [address] documented as of this encounter Visit Diagnoses Not on filedocumented in this encounter Additional Health Concerns Assessment Noted Time PHQ-9 Depression Total Score: 11 023 2:37 PM EST documented as of this encounter Care Teams Lab Support Service Tech Relationship Specialty Start Date End Date Dahlia Murphy NP [address] [place] [address] PCP - General Family Medicine 06/25/23 documented as of this encounter
--- OUTSIDE RECORDS SUMMARY | 2024-07-24 14:13 | XMS_ITS | Encounter Summary ---
Author Organization [employer] Address [address] [facility] 7t [place] [address] Care Team Providers Care Gum Puller Name Role Phone Dahlia Murphy NP Primary Care Provider [phone] Reason for Visit * Reason Comments Med Refill Encounter Details Date Type Department Care Team ([facility] st Contact Info) Description 10/19/2023 Refill [facility] MED & PEDS [address] [place] [address] Name, MD Dain [address] [place] [address] High cholesterol Social History Tobacco Use Types [...] Description 08/01/2024 3:15 PM EDT Office Visit [facility] MEDICINE [address] [place] [address] Dahlia Murphy NP [address] [place] [address] documented as of this encounter Visit Diagnoses Diagnosis High cholesterol Pure hypercholesterolemia documented in this encounter Additional Health Concerns Assessment Noted Time PHQ-9 Depression Total Score: 16 024 2:43 PM EDT documented as of this encounter Care Teams Gum Puller Relationship Specialty Start Date End Date Dahlia Murphy NP [address] [place] [address] PCP - General Family Medicine 06/25/23 documented as of this encounter
--- OUTSIDE RECORDS SUMMARY | 2024-07-24 14:13 | XMS_ITS | Encounter Summary ---
Author Organization [employer] [facility] Address [address] [place] [address] Care Team Providers Care Retail Agent Name Role Phone Tania Heck Primary Care Provider [phone] DESIGN DRAFTSPERSON Primary Care Provider [phone] DESIGN DRAFTSPERSON Primary Care Provider [phone] Reason for Visit * Reason Comments Med Refill Encounter Details Date Type Department Care Team (Late st Contact Info) Description 12/25/2022 Refill [facility] MEDICINE [address] [place] [address] Tania Heck FNP [address] [address] Dept [place] [address] Dizziness and giddiness Social History Tobacco Use [...] Description 08/01/2024 3:15 PM EDT Office Visit [facility] MEDICINE [address] [place] [address] Dahlia Murphy, TIFFANY [address] [place] [address] documented as of this encounter Visit Diagnoses Diagnosis Dizziness and giddiness documented in this encounter Additional Health Concerns Assessment Noted Time PHQ-9 Depression Total Score: 11 023 2:37 PM EST documented as of this encounter Care Teams Retail Agent Relationship Specialty Start Date End Date Tania Heck FNP PCP - General Family Medicine 03/07/21 02/15/23 Nargis Alvarenga NP [address] [place] [address] PCP - General Family Medicine 02/16/23 06/24/23 Dahlia Murphy NP [address] [place] [address] PCP - General Family Medicine 06/25/23 documented as of this encounter
--- OUTSIDE RECORDS SUMMARY | 2024-07-24 14:13 | XMS_ITS | Encounter Summary ---
Author Organization [employer] [facility] Address [address] [place] [address] 7 [place] [address] Care Team Providers Care Client Portfolio Manager Name Role Phone Nargis Alvarenga CLAY PRODUCTS GLAZER Primary Care Provider [phone] Dahlia Murphy [employer]ER Primary Care Provider [phone] Reason for Visit * Reason Comments Med Refill Encounter Details Date Type Department Care Team ([facility] st Contact Info) Description 06/04/2023 Refill [facility] MEDICINE [address] [place] [address] Miriam Serrano FNP [address] [place] [address] Hypertriglyceridemia Social History Tobacco Use Types Packs/Day [...] Description 08/01/2024 3:15 PM EDT Office Visit [facility] [address] [place] [address] Dahlia Murphy NP [address] [place] [address] documented as of this encounter Visit Diagnoses Diagnosis Hypertriglyceridemia Pure hyperglyceridemia documented in this encounter Additional Health Concerns Assessment Noted Time PHQ-9 Depression Total Score: 11 023 2:37 PM EST documented as of this encounter Care Teams Client Portfolio Manager Relationship Specialty Start Date End Date Nargis Alvarenga NP [address] [place] [address] PCP - General Family Medicine 02/16/23 06/24/23 Dahlia Murphy NP [address] [place] [address] PCP - General Family Medicine 06/25/23 documented as of this encounter
== END 2024-07-24 11:19 | disposition home or self-care (01) ==
LOC: HO.HGS 11:02
PROVIDERS: PCP Nurse Practitioner Family; Visit Provider Surgery
DX: M79.89 Other specified soft tissue disorders (principal)
CPT/HCPCS: 99204

== ENCOUNTER 2024-08-19 13:43 | Outpatient (AMB) | payer OTHER, SELFPAY ==
--- NOTE | 2024-08-19 13:45 | MHC.OFFVIS ---
Vital Signs 08/19/24 13:50 Height 5 ft 7 in Weight 205 lb BMI 32.1 Intake Visit Reasons: discuss surgery, does not feel a lump Intake Note: Patient here to discuss Lt buttock mass surgery. Allergies dextran sulfate Adverse Reaction (Verified 08/19/24 13:48) hot and itchy HPI Comments Details: Patient presents here for re-evaluation of her left buttock sebaceous cyst. She wants to make sure that it was not gone away or progressed. She has tentatively scheduled for surgery this . [facility] Medical History History of anemia Bipolar disorder, unspecified PTSD (post-traumatic stress disorder) Depression Anxiety SHARIFA on CPAP PVC (premature ventricular contraction) Arthritis Abnormal uterine bleeding Cardiac arrhythmia Scoliosis Fibromyalgia Carpal tunnel syndrome Panic attacks High cholesterol Type 2 diabetes mellitus Surgical History Hx of hysterectomy (10/15/23) Hx of esophagogastroduodenoscopy Hx of colonoscopy H/O excision of mass Tubal ligation status S/P repair of ventral hernia (~11/2017) H/O excision of mass Previous section Myxoinflammatory fibroblastic sarcoma (~08/2017) Family History Father History of stroke History of prostate cancer Mother History of breast cancer History of diabetes mellitus History of cardiovascular disorder Social History Household Members: Spouse and Children Housing: Apartment Are you a primary caregiver assisted living to a significant other at home: Yes (9 year old child) Do you presently have visiting nurse or other home services: No Alcohol intake: former Patient Tobacco Use Status: Current everyday Tobacco user Tobacco use type: Cigarette Cigarettes Per Day: 8 Years Smoked: 15 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 Areas indurated but no evidence of any active infection. Assessment & Plan Assessment & Plan (1) Mass of soft tissue: Code(s): M79.89 - Other specified soft tissue disorders Category: Surgical (2) Epidermal inclusion cyst: Code(s): L72.0 - Epidermal cyst Category: Surgical Plan As noted above, patient was tentatively scheduled for this for procedure. All questions answered. Risks benefits alternatives were already reviewed last visit. We will see her then. Coding Level of Care Code Est Pt Level 5 (75293) Diagnoses Mass of soft tissue M79.89 Epidermal inclusion cyst L72.0
[2024-08-19 13:50] VITALS: BMI 32.1
--- OUTSIDE RECORDS SUMMARY | 2024-08-19 16:43 | XMS_ITS | Encounter Summary ---
Author Organization [employer] [facility] Address [address] [place] [address] 7 [place] [address] Care Team Providers Care Top Collar Maker Name Role Phone Tania Heck Che TYPE PHOTOGRAPHY SUPERVISOR Primary Care Provider [phone] Nargis Alvarenga CORRECTION OFFICER PENITENTIARY Primary Care Provider Dahlia Murphy NP Primary Care Provider [phone] Encounter Details Date Type Department Care Team (Late st Contact Info) Description 05/05/2022 Abstract [facility] ADULT DENTAL [address] [place] [address] Jame Richards DDS [address] [place] [address] Social History Tobacco Use Types Packs/Day Years [...] Care Team (Late st Contact Info) Description 10/13/2024 3:15 PM EDT Office Visit [facility] MEDICINE [address] [place] [address] Dahlia Murphy NP [address] [place] [address] documented as of this encounter Visit Diagnoses Not on filedocumented in this encounter Care Teams Top Collar Maker Relationship Specialty Start Date End Date Tania Heck FNP PCP - General Family Medicine 03/07/21 02/15/23 Nargis Alvarenga NP [address] [place] [address] PCP - General Family Medicine 02/16/23 06/24/23 Dahlia Murphy NP [address] [place] [address] PCP - General Family Medicine 06/25/23 documented as of this encounter
--- OUTSIDE RECORDS SUMMARY | 2024-08-19 16:43 | XMS_ITS | Encounter Summary ---
Author Organization [employer] [facility] Address [address] [place] [address] 7 [place] [address] Care Team Providers Care Estate Agent Name Role Phone Nargis Alvarenga CONSULTING IT ARCHITECT Primary Care Provider [phone] Dahlia Murphy CONSULTING IT ARCHITECT Primary Care Provider [phone] Reason for Visit * Reason Comments Med Refill Encounter Details Date Type Department Care Team ([facility] st Contact Info) Description 06/04/2023 Refill [facility] MEDICINE [address] [place] [address] Miriam Serrano FNP [address] [place] [address] Hypertriglyceridemia Social History Tobacco Use Types Packs/Day [...] Description 10/13/2024 3:15 PM EDT Office Visit [facility] MEDICINE [address] [place] [address] Dahlia Murphy NP [address] [place] [address] documented as of this encounter Visit Diagnoses Diagnosis Hypertriglyceridemia Pure hyperglyceridemia documented in this encounter Additional Health Concerns Assessment Noted Time PHQ-9 Depression Total Score: 11 023 2:37 PM EST documented as of this encounter Care Teams Estate Agent Relationship Specialty Start Date End Date Nargis Alvarenga NP [address] [place] [address] PCP - General Family Medicine 02/16/23 06/24/23 Dahlia Murphy NP [address] [place] [address] PCP - General Family Medicine 06/25/23 documented as of this encounter
--- OUTSIDE RECORDS SUMMARY | 2024-08-19 16:43 | XMS_ITS | Encounter Summary ---
Author Organization [employer] Address [address] [facility] 7t [place] [address] Care Team Providers Care Regulatory Affairs Consultant Name Role Phone Dahlia Murphy NP Primary Care Provider [phone] Reason for Visit * Reason Comments Med Refill Encounter Details Date Type Department Care Team ([facility] st Contact Info) Description 10/19/2023 Refill [facility] MED & PEDS [address] [place] [address] Name, MD Dain [address] [place] [address] High cholesterol Social History Tobacco Use Types [...] Description 10/13/2024 3:15 PM EDT Office Visit [facility] MEDICINE [address] [place] [address] Dahlia Murphy NP [address] [place] [address] documented as of this encounter Visit Diagnoses Diagnosis High cholesterol Pure hypercholesterolemia documented in this encounter Additional Health Concerns Assessment Noted Time PHQ-9 Depression Total Score: 16 024 2:43 PM EDT documented as of this encounter Care Teams Regulatory Affairs Consultant Relationship Specialty Start Date End Date Dahlia Murphy NP [address] [place] [address] PCP - General Family Medicine 06/25/23 documented as of this encounter
--- OUTSIDE RECORDS SUMMARY | 2024-08-19 16:43 | XMS_ITS | Encounter Summary ---
Author Organization [employer] Address [address] [place] [address] 7 [place] [address] Care Team Providers Care Wind Farm Engineer Name Role Phone Dahlia Murphy NP Primary Care Provider [phone] Reason for Visit * Reason Onset Date Comments Med Refill 07/24/2023 Encounter Details Date Type Department Care Team (Late st Contact Info) Description 07/24/2023 Telephone [facility] [address] [place] [address] Dahlia Murphy NP [address] [place] [address] Med Refill Social History Tobacco Use Types [...] 300 MG tablet To be sent to: [facility] - [place], [place] - [address] [facility] Pt needs meds for med box. documented in this encounter Plan of Treatment Upcoming Encounters Date Type Department Care Team ([facility] st Contact Info) Description 10/13/2024 3:15 PM EDT Office Visit [facility] [address] [place] [address] Dahlia Murphy NP [address] [place] [address] documented as of this encounter Visit Diagnoses Not on filedocumented in this encounter Additional Health Concerns Assessment Noted Time PHQ-9 Depression Total Score: 11 023 2:37 PM EST documented as of this encounter Care Teams Wind Farm Engineer Relationship Specialty Start Date End Date Dahlia Murphy NP [address] [place] [address] PCP - General Family Medicine 06/25/23 documented as of this encounter
--- OUTSIDE RECORDS SUMMARY | 2024-08-19 16:43 | XMS_ITS | Encounter Summary ---
Author Organization [employer] [facility] Address [address] [place] [address] 7 [place] [address] Care Team Providers Care Route Sales Specialist Name Role Phone Colette Nargis INVASIVE PHYSICIAN Primary Care Provider [phone] Dahlia Murphy INVASIVE PHYSICIAN Primary Care Provider [phone] Reason for Visit * Reason Comments Med Refill Encounter Details Date Type Department Care Team (Late Contact Info) Description 06/05/2023 Refill [facility] [address] [place] [address] Miriam Serrano FNP [address] [place] [address] Essential hypertension Social History Tobacco Use Types [...] Encounters Date Type Department Care Team (Late Contact Info) Description 10/13/2024 3:15 PM EDT Office Visit [facility]INE [address] [place] [address] Dahlia Murphy NP [address] [place] [address] documented as of this encounter Visit Diagnoses Diagnosis Essential hypertension Unspecified essential hypertension documented in this encounter Additional Health Concerns Assessment Noted Time PHQ-9 Depression Total Score: 11 023 2:37 PM EST documented as of this encounter Care Teams Route Sales Specialist Relationship Specialty Start Date End Date Nargis Alvarenga NP 230 [place] [address] PCP - General Family Medicine 02/16/23 06/24/23 Dahlia Murphy NP [address] [place] [address] PCP - General Family Medicine 06/25/23 documented as of this encounter
--- OUTSIDE RECORDS SUMMARY | 2024-08-19 16:43 | XMS_ITS | Encounter Summary ---
Author Organization [employer] Address [address] [place] [address] 7t [place] [address] Care Team Providers Care Remote Control Mirror Installer Name Role Phone Nargis Alvarenga BIOLOGICAL SCIENCE TECHNICIAN Primary Care Provider [phone] Dahlia Murphy BIOLOGICAL SCIENCE TECHNICIAN Primary Care Provider [phone] Reason for Visit * Reason Comments Med Refill Encounter Details Date Type Department Care Team ([facility] st Contact Info) Description 06/05/2023 Refill [facility] [address] [place] [address] Gaby Balderrama, ODILIA [address] [place] [address] Health care maintenance; Essential hypertension Social History [...] Description 10/13/2024 3:15 PM EDT Office Visit [facility] [address] [place] [address] Dahlia Murphy NP [address] [place] [address] documented as of this encounter Visit Diagnoses Diagnosis Health care maintenance Essential hypertension Unspecified essential hypertension documented in this encounter Additional Health Concerns Assessment Noted Time PHQ-9 Depression Total Score: 11 023 2:37 PM EST documented as of this encounter Care Teams Remote Control Mirror Installer Relationship Specialty Start Date End Date Nargis [place] [address] PCP - General Family Medicine 02/16/23 06/24/23 Dahlia Murphy NP [address] [place] [address] PCP - General Family Medicine 06/25/23 documented as of this encounter
--- OUTSIDE RECORDS SUMMARY | 2024-08-19 16:43 | XMS_ITS | Clinical Summary ---
Author Organization [employer] Address [address] [facility] 7t [place] [address] Care Team Providers Care Clearance Cutter Name Role Phone Dahlia Murphy NP Primary Care Provider [phone] Allergies No known active allergies Medications * [...] complication, without long-term current use of insulin (CMS/[facility]) 1 each 3 times daily. Use 3 time daily to test blood sugar 100 each 4 Active glucose blood (FREESTYLE LITE) test stripIndications :Type 2 diabetes mellitus without complication, without long-term current use of insulin (CMS/HCC) 1 each by Other route 3 times daily. Use as instructed 100 each 4 Active TRUEplus Lancets 33G miscIndications: Type 2 diabetes mellitus without complication, without long-term current use of insulin (CMS/HCC) 1 each 3 times daily. Use to test blood sugar 3 times daily 100 each 4 Active nicotine polacrilex (Nicorette) 4 MG gumIndications:T obacco user Chew 1 each (4 mg) if needed for smoking cessation. 100 each 1 4 Active naproxen (Naprosyn) 500 MG tabletIndication s:Muscle pain take 1 tablet by oral route 2 times every day with food prn 30 tablet 1 4 Active cyclobenzaprine (Flexeril) 10 MG tabletIndication s:Muscle pain TAKE 1 TABLET BY MOUTH BEFORE BEDTIME NEEDED 30 tablet 4 Active fluticasone (Flonase) 50 MCG/ACT nasal sprayIndications [...] daily to finish 6 tablet 4 Active Dextromethorphan -guaiFENesin (Mucinex DM) 30-600 MG tablet sustained-releas e 12 hour Use 1 tab TID 28 tablet 4 Active acetaminophen (Tylenol) 500 MG tablet Take 1 tablet (500 mg) by mouth every 6 (six) hours if needed for mild pain for up to 20 doses. 20 tablet 4 Active metFORMIN (Glucophage) 1000 MG tabletIndication s:Type [...] 4 Active omega-3 (Fish Oil) 1000 MG capsuleIndicatio ns:High cholesterol TAKE 1 CAPSULE BY MOUTH EVERY MORNING 90 capsule 1 4 Active Farxiga 10 MGIndications:Ty pe 2 diabetes mellitus without complication, without long-term current use of insulin (CMS/HCC) TAKE 1 TABLET BY MOUTH EVERY MORNING 90 tablet 1 4 Active losartan (Cozaar) 25 MG tabletIndication s:Essential hypertension TAKE 1 TABLET BY MOUTH EVERY MORNING 90 tablet 4 Active Multiple Vitamin (Multivitamin) tabletIndication s:Health care maintenance TAKE 1 TABLET BY MOUTH EVERY MORNING 90 tablet 4 Active nicotine (Nicoderm CQ) 14 MG/24HR patchIndications :Tobacco user Place 1 patch on the skin 1 (one) time each day at the same time. 30 patch 4 Active atorvastatin (Lipitor) 80 MG tabletIndication s:Hypertriglycer idemia TAKE 1 TABLET BY MOUTH EVERY MORNING 90 tablet 5 Active ferrous gluconate (Fergon) 324 (38 Fe) MG tabletIndication s:Iron deficiency anemia due to chronic blood loss TAKE 1 TABLET BY MOUTH EVERY OTHER DAY IN THE MORNING 45 tablet 5 Active Tirzepatide-Weig ht Management (Zepbound) 2.5 MG/0.5ML solution auto-injectorInd ications:Type 2 diabetes mellitus with hyperglycemia, without long-term current use of insulin (CMS/HCC) Inject 0.5 mL (2.5 mg) under the skin 1 (one) time per week for 28 days. 2 mL 5 09/02/19 25 Active doxycycline (Vibramycin) 100 MG capsuleIndicatio ns:Abscess of buttock, right Take 1 capsule (100 mg) by mouth 2 times daily for 10 days. Take with at least 8 ounces (large glass) of water, do not lie down for 30 minutes after 20 capsule 5 07/26/19 25 Hospital, Clinic, or Other Facility Administered Medication [...] Encounters Date Type Department Care Team Description 08/07/2024 Telephone [facility] [address] [place] [address] Dahlia Murphy NP Prior Auth Prescription (Zepbound) 08/05/2024 Telephone [facility] [address] [place] [address] Liliam Parra RN 08/04/2024 Orders Only [facility] [address] [place] [address] Dahlia Murphy NP Type 2 diabetes mellitus with hyperglycemia, without long-term current use of insulin ([facility]) (Primary Dx) 07/30/2024 Telephone [facility] [address] [place] [address] Dahlia Murphy NP appoinment cancel 07/22/2024 Telephone [facility] [address] [place] [address] Chrissie Huizar MA Chart Prep 07/15/2024 9:00 AM EST Office Visit [facility] [address] [place] [address] Amarilis Mazariegos MD Abscess of buttock, right (Primary Dx) 06/24/2024 Refill [facility] [address] [place] [address] Dahlia Murphy NP Iron deficiency anemia due to chronic blood loss 06/17/2024 4:00 PM EST Office Visit [facility] [address] [place] [address] Dahlia Murphy NP Type 2 diabetes mellitus with hyperglycemia, without long-term current use of insulin ([facility]) (Primary Dx); Tobacco user; Dietary counseling; Exercise counseling; Morbid obesity ([facility]) 06/05/2024 Telephone [facility] [address] [place] [address] Chrissie Huizar MA Chart Prep 05/28/2024 Refill [facility] [address] [place] [address] Dahlia Murphy NP Hypertriglyceridemia from Last 3 Months Immunizations Name Administration [...] Description 10/13/2024 3:15 PM EDT Office Visit [facility] [address] [place] [address] Dahlia Murphy NP [address] [place] [address] Health Maintenance Due Date Last Done Comments [...] EST Narrative 07/07/2024 12:46 PM EST ? [facility] ? [address] ?[place] [address] ? Ultrasound Report ? Signed ? Patient: Castanon Mcdowell,Michelle ?MR#: [id number] ?? [id number] ? : 1985 ?Acct:[id number] ? Age/Sex: 39 / F ?ADM Date: 02/24/25 ? Loc: HO.MAMMO ? Attending Dr: Dahlia Granado Graef LIGHT FIXTURE SERVICER ? Ordering Physician: Dahlia Murphy LIGHT FIXTURE SERVICER ?? Date of Service: 07/07/24 ?? Procedure(s): US breast LT limited mamm only ?? Accession Number(s): [id number] ? cc: Dahlia Murphy LIGHT FIXTURE SERVICER ? EXAMINATION: ?? MM DIAGNOSTIC DIGITAL BREAST [...] DD/ 1215 ? TD/TT: 07/07/24 1235 ? Wire Bound Box Machine Operator: ? Procedure Note Dale, Image - 07/07/2024 [facility] [address] [place], [place] [address] Ultrasound Report Signed Patient: Michelle HernandezMR#: [id number] : 1985Acct:[id number] Age/Sex: 39 / FADM Date: 07/07/24 Loc: HO.MAMMO Attending Dr: Dahlia Murphy NP Ordering Physician: Dahlia Murphy NP Date of Service: 07/07/24 Procedure(s): US breast LT limited mamm only Accession Number(s): [id number] cc: Dahlia Murphy NP EXAMINATION: MM DIAGNOSTIC DIGITAL BREAST TOMOSYNTHESIS, BILATERAL [...] by: Jannette Marie DO 07/07/2024 12:43 PM [facility] Dictated By: Jannette Marie DO Signed By: <Electronically signed by Jannette Marie DO in OV> 07/07/24 1243 DD/ 1215 TD/TT: 07/07/24 1235 Wire Bound Box Machine Operator: us Dahlia Murphy LIGHT FIXTURE SERVICER IMG US PROCEDURES Final Result * BI Mammogram Diagnostic Tomosynthesis Bilateral (07/07/2024 11:45 AM EST) Anatomical Region Laterality Modality Breast Bilateral Mammography 07/07/2024 11:4 5 AM EST Narrative 07/07/2024 12:46 PM EST ? [facility] ? [address] ?[place] [address] ? Mammography Report ? Signed ? Patient: Castanon Nesha Mcdowellred ?MR#: [id number] ?? [id number] ? : 1985 ?Acct:[id number] ? Age/Sex: 39 / F ?ADM Date: 07/07/24 ? Loc: HO.MAMMO ? Attending Dr: Dahlia Murphy LIGHT FIXTURE SERVICER ? Ordering Physician: Jeffrey,Dahlia Granado LIGHT FIXTURE SERVICER ?Results: 1Negati ?? ve ? Date of Service: 07/07/24 ?Follow Up: 1 Year From Orig ?? inal Mammogram ? Procedure(s): MM tomosynthesis diagnostic BI ?? Accession Number(s): [id number] ? cc: Dahlia Murphy LIGHT FIXTURE SERVICER ? EXAMINATION: ?? MM DIAGNOSTIC DIGITAL BREAST [...] DD/ 1145 ? TD/TT: 07/07/24 1209 ? Wire Bound Box Machine Operator: ? Procedure Note Donotuseinterpreter, Image - 07/07/2024 [facility] [address] [place], [place] [address] Mammography Report Signed Patient: Michelle HernandezMR#: [id number] : 1985Acct:[id number] Age/Sex: 39 / FADM Date: 07/07/24 Loc: HO.MAMMO Attending Dr: Dahlia Murphy LIGHT FIXTURE SERVICER Ordering Physician: Dahlia Murphy NPResults: 1Negati ve Date of Service: 07/07/24Follow Up: 1 Year From Orig inal Mammogram Procedure(s): MM tomosynthesis diagnostic BI Accession Number(s): [id number] cc: Dahlia Murphy LIGHT FIXTURE SERVICER EXAMINATION: MM DIAGNOSTIC DIGITAL BREAST TOMOSYNTHESIS, BILATERAL [...] 07/07/24 1243 DD/ 1145 TD/TT: 07/07/24 1209 Wire Bound Box Machine Operator: Dahlia Murphy LIGHT FIXTURE SERVICER IMG BI PROCEDURES Final Result * POCT Glucose (06/17/2024 4:53 PM EST) Glucose Blood, POC 112 60 - 200 mg/dL QC Media Lot # [id number] Lot# Expiration Date Blood Capillary blood specimen / Unknown 06/17/2024 4:53 PM EST Dahlia Murphy NP POINT OF CARE TEST ENTER/EDIT OR DERABLES Final Result * (ABNORMAL) POCT HGB A1C (05/09/2024 11:46 AM EST) Hemoglobin A1C 7.4(A) 4.0 - 6.0 % QC Media Lot # [id number] Lot# Expiration Date Blood 05/09/2024 11:4 6 AM EST Result [facility] us Dahlia Murphy NP POINT OF CARE TEST ENTER/EDIT OR DERABLES Final Result * Referral to Ophthalmology (11/07/2023) us Dahlia Murphy NP OUTPATIENT REFERRAL ORDERABLES F inal Result * Albumin, Random Urine W/O Creatinine (10/16/2022 8:16 AM EDT) Pathologist [facility] Albumin, Urine 36.0 See Note: mg/dL [facility] Comment: Reference Range: Reference Range Not established Verified by repeat analysis. [employer] [employer] [facility] [place] [facility] Comment: The ADA defines abnormalities in albumin [...] PM EDT FASTING:YES FASTING: YES Tania Heck [facility] URINE ORDERABLES Final Result [facility] [address], [place] [address] [facility] [place] [facility] [address] [place] [address] * (ABNORMAL) Lipid Panel, Standard (10/16/2022 8:16 AM EDT) Cholesterol, Total 126 <200 mg/dL [facility] [place] [facility] HDL Cholesterol 32(L) > OR = 50 mg/dL [facility] [place] [facility] Triglycerides 236(H) <150 mg/dL [facility] [place] [facility] Comment: If a non-fasting specimen was collected, consider repeat triglyceride testing on a fasting specimen if clinically indicated. Addis et al. J. of Clin. Lipidol. 2015;9:129-169. LDL Cholesterol 65 mg/dL (calc) [facility] [place] [facility] Comment: Reference range: <100 Desirable range <100 mg/dL for primary prevention; ?? <70 mg/dL for patients with CHD or diabetic patients with > or = 2 CHD risk factors. LDL-C is now calculated using the Suzy calculation, which is a validated novel method providing better accuracy than the Friedewald equation in the estimation of LDL-C. Mitch GARNER et al. ARELY. 2013;310(19): 8962-1765 (http://education.ShangPin/faq/PLT308) Chol/HDLC Ratio 3.9 <5.0 (calc) [facility] [place] [facility] Non-HDL Cholesterol 94 <130 mg/dL (calc) [facility] [place] [facility] Comment: For patients with diabetes plus 1 major ASCVD risk factor, treating to a non-HDL-C goal of <100 mg/dL (LDL-C of <70 mg/dL) is considered a therapeutic option. Blood Venous blood specimen / Unknown 10/16/2022 8:16 AM EDT 10/16/2022 8:16 AM EDT Narrative [facility] - 10/16/2022 10:25 PM EDT FASTING:YES FASTING: YES Tania Heck [facility] LAB BLOOD ORDERABLES Final Result [address], [place] [address] [facility] [place] [facility] [address] [place] [address] * PAP/HPV (08/03/2022) Pap Negative for intraephithelial lesion [...] a test for HCV RNA (test code 69803) is suggested. ?? For additional information please refer to http://education.Syntasia/faq/NHU28n0 (This link is being provided for informational/ educational purposes only.) ?? 03/08/2022 8:59 AM EDT Tania Bolton Umang HOUSE CLEANER HISTORICAL/NON ORDERABLE L ABS Final Result Performing Organization Address City/[facility]/ZIP Co de Phone Number CONVERTED LEGACY LABS * HIV 1/2 ANTIGEN/ANTIBODY,FOURTH [...] ? For additional information please refer to http://education.Syntasia/faq/DGQ766 (This link is being provided for informational/ educational purposes only.) ? The performance of this assay has not been clinically validated in patients less than 2 years old. ?? 03/08/2022 8:59 AM EDT Tania Bolton Umang HOUSE CLEANER LAB BLOOD ORDERABLES Final Result Performing Organization Address City/[facility] Co de Phone Number CONVERTED LEGACY LABS from Last 3 Months or Most Recently Relevant to Health Maintenance Insurance [facility] DENTAL - HSN PARTIAL (MEDICAID) Care Teams Clearance Cutter Relationship Specialty Start Date End Date Dahlia Murphy NP [address] [place] [address] PCP - General Family Medicine 06/25/23
--- OUTSIDE RECORDS SUMMARY | 2024-08-19 16:43 | XMS_ITS | Encounter Summary ---
Author Organization [employer] [facility] Address [address] [place] [address] Care Team Providers Care Manager Mental Health Name Role Phone Tania Heck Primary Care Provider [phone] Nargis Alvarenga FOX FARMER Primary Care Provider [phone] Dahlia Murphy NP Primary Care Provider [phone] Reason for Visit * Reason Comments Med Refill Encounter Details Date Type Department Care Team (Late st Contact Info) Description 04/19/2022 Refill [facility] MEDICINE [address] [place] [address] Tania Heck FNP [address] [place] [address] Dept [place] [address] Social History Tobacco Use Types Packs/Day Years [...] Description 10/13/2024 3:15 PM EDT Office Visit [facility] MED[facility]INE [address] [place] [address] Dahlia Murphy NP [address] [place] [address] documented as of this encounter Visit Diagnoses Not on filedocumented in this encounter Care Teams Manager Mental Health Relationship Specialty Start Date End Date Tania Heck FNP PCP - General Family Medicine 03/07/21 02/15/23 Nargis Alvarenga NP [address] [place] [address] PCP - General Family Medicine 02/16/23 06/24/23 Dahlia Murphy NP [address] [place] [address] PCP - General Family Medicine 06/25/23 documented as of this encounter
--- OUTSIDE RECORDS SUMMARY | 2024-08-19 16:43 | XMS_ITS | Encounter Summary ---
Author Organization [employer] [facility] Address [address] [place] [address] Care Team Providers Care Pet Resort Concierge Name Role Phone Tania Heck Primary Care Provider [phone] Nargis Alvarenga CAMP NURSE Primary Care Provider [phone] Dahlia Murphy CAMP NURSE Primary Care Provider [phone] Reason for Visit * Reason Comments Med Refill Encounter Details Date Type Department Care Team (Late st Contact Info) Description 12/25/2022 Refill [facility] MEDICINE [address] [place] [address] Tania Heck FNP [address] [place] [address] Dept [place] [address] Dizziness and giddiness Social History Tobacco Use [...] 3:15 PM EDT Office Visit [facility] [address] [place] [address] Dahlia Murphy, TIFFANY [address] [place] [address] documented as of this encounter Visit Diagnoses Diagnosis Dizziness and giddiness documented in this encounter Additional Health Concerns Assessment Noted Time PHQ-9 Depression Total Score: 11 023 2:37 PM EST documented as of this encounter Care Teams Pet Resort Concierge Relationship Specialty Start Date End Date Tania Heck FNP PCP - General Family Medicine 03/07/21 02/15/23 Nargis Alvarenga NP [address] [place] [address] PCP - General Family Medicine 02/16/23 06/24/23 Dahlia Murphy NP [address] [place] [address] PCP - General Family Medicine 06/25/23 documented as of this encounter
== END 2024-08-19 13:50 | disposition home or self-care (01) ==
LOC: HO.HGS 13:43
PROVIDERS: PCP Nurse Practitioner Family; Visit Provider Surgery
DX: M79.89 Other specified soft tissue disorders (principal); L72.0 Epidermal cyst
CPT/HCPCS: 99214

== ENCOUNTER → 2024-08-19 13:43 | Outpatient (BNVA) | payer OTHER, SELFPAY | PROVIDERS: PCP Nurse Practitioner Family; Visit Provider Surgery | DX: L72.0 Epidermal cyst (principal); M79.89 Other specified soft tissue disorders | CPT/HCPCS: 99212 ==

== ENCOUNTER → 2024-08-21 09:49 | Day surgery (SDC) | payer OTHER, SELFPAY ==
[2024-08-06 11:50] VITALS: BP 129/79; PULSE 68; RESP 16; O2SAT 99; BMI 31.9
--- NOTE | 2024-08-06 12:22 | HO.ANESPROP2 ---
HPI - Anesthesia Eval Consult details Narrative: 39yo F for Left Wide Local Excision Buttock Mass, 08/21/24 [place] [place]Cs well controlled on beta block. Stable at 07/2024 office visit for 1 year routine f/u. Anesthesia Pre-Procedure Meds Is the patient on any of the following meds?: SGLT2 Inhib PMFSH Active Problems Active Problems: All Active Problems Mass of soft tissue (Acute) Pain in finger of right hand (Acute) Trigger finger, right middle finger (Acute) Varicose veins of right lower extremity with inflammation (Acute) Abdominal pain (Acute) Epidermal inclusion cyst (Acute) Well woman exam (Acute) Yeast infection of the vagina (Acute) Palpitation (Acute) Anemia (Chronic) Urine incontinence (Acute) Menorrhagia (Acute) Diarrhea (Acute) Mixed irritable bowel syndrome (Acute) Hemorrhoids (Acute) Lactose intolerance (Acute) Left breast lump (Acute) High cholesterol (Acute) Abnormal uterine bleeding (Acute) PVC (premature ventricular contraction) (Acute) Myxoinflammatory fibroblastic sarcoma (Acute ~08/2017) Past Medical History Medical History (Updated 08/06/24 @ 12:02 by Gillian Cheng, RONNIE) History of anemia Bipolar disorder, unspecified PTSD (post-traumatic stress disorder) Depression Anxiety SHARIFA on CPAP PVC (premature ventricular contraction) Arthritis Abnormal uterine bleeding Cardiac arrhythmia Scoliosis Fibromyalgia Carpal tunnel syndrome Panic attacks High cholesterol Type 2 diabetes mellitus Family History Family History Father History of stroke History of prostate cancer Mother History of breast cancer History of diabetes mellitus History of cardiovascular disorder Family history of problems with anesthesia: No Surgical History Surgical History (Updated 08/06/24 @ 11:58 by Gillian Cheng, RONNIE) Hx of hysterectomy (10/15/23) Hx of esophagogastroduodenoscopy Hx of colonoscopy H/O excision of mass Tubal ligation status S/P repair of ventral hernia (~11/2017) H/O excision of mass Previous section Myxoinflammatory fibroblastic sarcoma (~08/2017) History of Problems with Anesthesia: No Social History Social History (Updated 08/06/24 @ 12:10 by Gillian Cheng, RONNIE) Household Members: Spouse and Children Housing: Apartment Are you a primary career technical education instructor to a significant other at home: Yes (9 year old child) Do you presently have visiting nurse or other home services: No Alcohol intake: former Patient Tobacco Use Status: Current everyday Tobacco user Tobacco use type: Cigarette Cigarettes Per Day: 8 Years Smoked: 15 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 Sexual orientation: Straight/Heterosexual Gender identity: Female Meds Allergies Allergy/AdvReac Type Severity Reaction Status Date / Time dextran sulfate AdvReac hot and Verified 08/06/24 11:42 itchy Home Medications ?Medication ?Instructions ?Recorded ?Confirmed ?Last Taken ?Type ascorbate calcium (vitamin C) 500 500 mg PO BID 02/18/20 08/06/24 Unknown History mg tablet metformin 1,000 mg tablet 1,000 mg PO BID 02/18/20 08/06/24 Unknown History losartan 25 mg tablet 25 mg PO DAILY 09/27/20 08/06/24 Unknown History atorvastatin 80 mg tablet 80 mg PO BEDTIME 06/15/22 08/06/24 Unknown History cyclobenzaprine 10 mg tablet 10 mg PO BEDTIME PRN Muscle Spasm 06/15/22 08/06/24 Unknown History hydroxyzine HCl 50 mg tablet 50 mg PO TID PRN anxiety 06/15/22 08/06/24 Unknown History omega-3 300 mg-dha 120 mg-epa 180 1 cap PO DAILY 06/15/22 08/06/24 Unknown History mg-fish oil 1,000 mg capsule paroxetine HCl 20 mg tablet 20 mg PO DAILY 06/15/22 08/06/24 Unknown History dapagliflozin propanediol 10 mg 10 mg PO QAM 10/24/22 08/06/24 Unknown History tablet (Farxiga) oxcarbazepine 300 mg tablet 300 mg PO DAILY 07/21/24 08/06/24 Unknown History Exam Height,Weight and Vital Signs: Height 5 ft 7 in Weight 92.533 kg Last Vital Signs Pulse 68 08/06/24 11:50 Resp 16 08/06/24 11:50 BP 129/79 08/06/24 11:50 Pulse Ox 99 08/06/24 11:50 O2 Del Method Room Air 08/06/24 11:50 Pertinent Lab Results Pertinent Lab Results: Laboratory Tests 05/09/24 12:28 WBC 8.4 Hgb 12.5 Hct 39.3 Plt Count 315 Sodium 138 Potassium 3.9 Chloride 102 Carbon Dioxide 28 BUN 9 Creatinine 0.56 Narrative Narrative: EKG 07/2024 EKG Details: EKG shows normal sinus rhythm with poor R-wave progression most likely lead placement Assessment and Plan Assessment Anesthesia Assessment: Chart Reviewed Final Anesthetic Review Family History of Problems with Anesthesia: No History of Problems with Anesthesia: No
--- NOTE | 2024-08-20 09:21 | MHC.SHP ---
Pre-Procedural Eval Section A - 24 Hr Update-Section A only Date of Service: 08/21/24 The patient is an INPATIENT: No Changes since office visit: No Cold of Flu in the past 2 weeks, No New Medical Problems, No Changes in Medication and No Patient answered all questions Section B - Complete if H&P > 30 days Chief Complaint: Other specified soft tissue disorders Allergies: Allergies Allergy/AdvReac Type Severity Reaction Status Date / Time dextran sulfate AdvReac hot and Verified 08/19/24 13:48 itchy Review of Systems Sugical H&P ROS: Negative: Constitution, Cardiovascular, Respiratory, Neurological, Psychiatric, Hem-Onc, Allergic/Immunologic, Gastrointestinal, Genitourinary, Musculoskeletal, Integumentary, Endocrine and Eyes/Ears/Nose/Throat Exam Surgical H&P Exam: Normal: HEENT, Normal: Heart, Normal: Lungs, Normal: Extremities, Normal: Abdomen, Normal: Skin and Normal: Neurological Plan I have reviewed the history and physical and performed a pertinent physical examination on my patient. No changes have occurred unless specified. Time Spent With Patient Time: Total time managing care of this patient today ____ minutes.
[2024-08-21 10:00] VITALS: BMI 32.0
== END ==
LOC: HO.SSS 09:49
PROVIDERS: PCP Nurse Practitioner Family; Visit Provider Surgery
DX: M79.89 Other specified soft tissue disorders (principal); Z53.8 Procedure and treatment not carried out for other reasons

== ENCOUNTER → 2024-09-25 07:18 | Day surgery (SDC) | payer OTHER, SELFPAY ==
--- OUTSIDE RECORDS SUMMARY | 2024-08-27 06:37 | XMS_ITS | Encounter Summary ---
Author Organization [employer] Address [address] [place] [address] 7t [place] [address] Care Team Providers Care Value Advisor Name Role Phone Nargis Alvarenga AUDIOLOGY ASSISTANT Primary Care Provider [phone] Dahlia Murphy AUDIOLOGY ASSISTANT Primary Care Provider [phone] Reason for Visit * Reason Comments Med Refill Encounter Details Date Type Department Care Team ([facility] st Contact Info) Description 06/05/2023 Refill [facility] [address] [place] [address] Gaby Balderrama, ODILIA [address] [place] [address] Health care maintenance; Essential hypertension Social History [...] Description 10/13/2024 3:15 PM EDT Office Visit [facility] [address] [place] [address] Dahlia Murphy NP [address] [place] [address] documented as of this encounter Visit Diagnoses Diagnosis Health care maintenance Essential hypertension Unspecified essential hypertension documented in this encounter Additional Health Concerns Assessment Noted Time PHQ-9 Depression Total Score: 11 023 2:37 PM EST documented as of this encounter Care Teams Value Advisor Relationship Specialty Start Date End Date Nargis [place] [address] PCP - General Family Medicine 02/16/23 06/24/23 Dahlia Murphy NP [address] [place] [address] PCP - General Family Medicine 06/25/23 documented as of this encounter
--- OUTSIDE RECORDS SUMMARY | 2024-08-27 06:37 | XMS_ITS | Encounter Summary ---
Author Organization [employer] Address [address] [facility] 7t [place] [address] Care Team Providers Care Weight Loss Physician Name Role Phone Dahlia Murphy NP Primary Care Provider [phone] Reason for Visit * Reason Comments Med Refill Encounter Details Date Type Department Care Team ([facility] st Contact Info) Description 10/19/2023 Refill [facility] MED & PEDS [address] [place] [address] Name, MD Dain [address] [place] [address] High cholesterol Social History Tobacco Use Types [...] Description 10/13/2024 3:15 PM EDT Office Visit [facility] MEDICINE [address] [place] [address] Dahlia Murphy NP [address] [place] [address] documented as of this encounter Visit Diagnoses Diagnosis High cholesterol Pure hypercholesterolemia documented in this encounter Additional Health Concerns Assessment Noted Time PHQ-9 Depression Total Score: 16 024 2:43 PM EDT documented as of this encounter Care Teams Weight Loss Physician Relationship Specialty Start Date End Date Dahlia Murphy NP [address] [place] [address] PCP - General Family Medicine 06/25/23 documented as of this encounter
--- OUTSIDE RECORDS SUMMARY | 2024-08-27 06:37 | XMS_ITS | Encounter Summary ---
Author Organization [employer] [facility] Address [address] [place] [address] 7 [place] [address] Care Team Providers Care Bakery Machine Mechanic Supervisor Name Role Phone Nargis Alvarenga DEALERSHIP MANAGER Primary Care Provider [phone] Dahlia Murphy DEALERSHIP MANAGER Primary Care Provider [phone] Reason for Visit * Reason Comments Med Refill Encounter Details Date Type Department Care Team ([facility] st Contact Info) Description 06/04/2023 Refill [facility] MEDICINE [address] [place] [address] Miriam Serrano FNP [address] [place] [address] Hypertriglyceridemia Social History Tobacco Use Types Packs/Day [...] Description 10/13/2024 3:15 PM EDT Office Visit [facility] MEDICINE [address] [place] [address] Dahlia Murphy NP [address] [place] [address] documented as of this encounter Visit Diagnoses Diagnosis Hypertriglyceridemia Pure hyperglyceridemia documented in this encounter Additional Health Concerns Assessment Noted Time PHQ-9 Depression Total Score: 11 023 2:37 PM EST documented as of this encounter Care Teams Bakery Machine Mechanic Supervisor Relationship Specialty Start Date End Date Nargis Alvarenga NP [address] [place] [address] PCP - General Family Medicine 02/16/23 06/24/23 Dahlia Murphy NP [address] [place] [address] PCP - General Family Medicine 06/25/23 documented as of this encounter
--- OUTSIDE RECORDS SUMMARY | 2024-08-27 06:37 | XMS_ITS | Encounter Summary ---
Author Organization [employer] Address [address] [facility] 7t [place] [address] Care Team Providers Care B2B Sales Executive Name Role Phone Dahlia Murphy NP Primary Care Provider [phone] Encounter Details Date Type Department Care Team ([facility] st Contact Info) Description 08/05/2024 Telephone [facility] MEDICINE [address] [place], [place] [phone] Liliam Parra RN Social History Tobacco Use Types Packs/Day Years [...] is your housing situation today? I have noahjaime king 08/15/[address] you [...] t he electric, gas, oil or water [employer] threatened to shut off services in your [...] encounter Miscellaneous Notes * Telephone Encounter - Liliam Parra RN - 08/25/2024 10:25 AM EDT Tc to pt ia grzegorz id: [id number] per PCP Pt needs status check in the next 3-4 week to see howthey are tolerating their Zepbound per PCP. . Special Assemblies Supervisor attempted to call pt twice, no answer andunable to lvm. Pt is to follow up with PCP prn. * Telephone Encounter - Liliam Parra RN - 08/05/2024 9:23 AM EDT Tc to pt via grzegorz id: [id number] to let them know per PCP Zepbound rx sent to [facility] - pleasehave pt schedule follow up in 3-4 weeks, thank you . Advised pcp that pt has a follow up with them on 10/13/24 and if they are okay with seeing pt at that time frame. Per PCP 10/13 is fine as long as pt is comfortable updating me re med at 3-4 weeks . Pt agrees with plan and we'll task to blue team nurses box to follow up with pt in the next 3-4x to see how they're tolerating the medication. Task forwarded to blue team box. * Telephone Encounter - Liliam Parra RN - 08/05/2024 9:23 AM EDT ----- Message from Dahlia Murphy sent at 08/04/2024 2:04 PM EDT ----- Zepbound rx sent to [facility] - please have pt schedule follow upin 3-4 weeks, thank you documented in this encounter Plan of Treatment Upcoming Encounters Date Type Department Care Team (Late st Contact Info) Description 10/13/2024 3:15 PM EDT Office Visit [facility] MEDICINE [address] [place] [address] Dahlia Murphy NP [address] [place] [address] documented as of this encounter Visit Diagnoses Not on filedocumented in this encounter Additional Health Concerns Assessment Noted Time PHQ-9 Depression Total Score: 16 024 11:51 AM EST documented as of this encounter Care Teams B2B Sales Executive Relationship Specialty Start Date End Date Dahlia Murphy NP 230 [place] [address] PCP - General Family Medicine 06/25/23 documented as of this encounter
--- OUTSIDE RECORDS SUMMARY | 2024-08-27 06:37 | XMS_ITS | Encounter Summary ---
Author Organization [employer] Address [address] [place] [address] 7 [place] [address] Care Team Providers Care Eye Technician Name Role Phone Dahlia Murphy NP Primary Care Provider [phone] Reason for Visit * Reason Onset Date Comments Med Refill 07/24/2023 Encounter Details Date Type Department Care Team (Late st Contact Info) Description 07/24/2023 Telephone [facility] MEDICINE 230 [place] [address] Dahlia Murphy NP 230 [place] [address] Med Refill Social History Tobacco Use Types [...] 300 MG tablet To be sent to: [facility] - [place], [place] - [address] [facility] Pt needs meds for med box. documented in this encounter Plan of Treatment Upcoming Encounters Date Type Department Care Team ([facility] st Contact Info) Description 10/13/2024 3:15 PM EDT Office Visit [facility] MEDICINE 230 [place] [address] Dahlia Murphy NP 230 [place] [address] documented as of this encounter Visit Diagnoses Not on filedocumented in this encounter Additional Health Concerns Assessment Noted Time PHQ-9 Depression Total Score: 11 023 2:37 PM EST documented as of this encounter Care Teams Eye Technician Relationship Specialty Start Date End Date Dahlia Murphy NP 230 [place] [address] PCP - General Family Medicine 06/25/23 documented as of this encounter
--- OUTSIDE RECORDS SUMMARY | 2024-08-27 06:37 | XMS_ITS | Encounter Summary ---
Author Organization [email or web address] [facility] Address [address] [place] [address] 7 [place] [address] Care Team Providers Care Chain Builder Loom Control Name Role Phone Colette Nargis ANDROID DEVELOPER Primary Care Provider [phone] Dahlia Murphy ANDROID DEVELOPER Primary Care Provider [phone] Reason for Visit * Reason Comments Med Refill Encounter Details Date Type Department Care Team (Late Contact Info) Description 06/05/2023 Refill [facility] MEDICINE [address] [place] [address] Miriam Serrano FNP 230 [place] [address] Essential hypertension Social History Tobacco Use Types [...] Description 10/13/2024 3:15 PM EDT Office Visit [facility] MEDICINE [address] [place] [address] Dahlia Murphy NP 230 [place] [address] documented as of this encounter Visit Diagnoses Diagnosis Essential hypertension Unspecified essential hypertension documented in this encounter Additional Health Concerns Assessment Noted Time PHQ-9 Depression Total Score: 11 023 2:37 PM EST documented as of this encounter Care Teams Chain Builder Loom Control Relationship Specialty Start Date End Date Nargis Alvarenga NP 230 [place] [address] PCP - General Family Medicine 02/16/23 06/24/23 Dahlia Murphy NP [address] [place] [address] PCP - General Family Medicine 06/25/23 documented as of this encounter
--- OUTSIDE RECORDS SUMMARY | 2024-08-27 06:38 | XMS_ITS | Encounter Summary ---
Author Organization [employer] [facility] Address [address] [place] [address] Care Team Providers Care Television Servicer Name Role Phone Tania Heck Primary Care Provider [phone] Nargis Alvarenga LANDING SIGNAL OFFICER Primary Care Provider [phone] Dahlia Murphy NP Primary Care Provider [phone] Reason for Visit * Reason Comments Med Refill Encounter Details Date Type Department Care Team (Late st Contact Info) Description 04/19/2022 Refill [facility] MEDICINE [address] [place] [address] Tania Heck FNP [address] [place] [address] Dept [place] [address] Social History Tobacco Use Types Packs/Day Years [...] Description 10/13/2024 3:15 PM EDT Office Visit [facility] MEDICINE [address] [place] [address] Dahlia Murphy NP 230 [place] [address] documented as of this encounter Visit Diagnoses Not on filedocumented in this encounter Care Teams Television Servicer Relationship Specialty Start Date End Date Tania Heck FNP PCP - General Family Medicine 03/07/21 02/15/23 Nargis Alvarenga NP 230 [place] [address] PCP - General Family Medicine 02/16/23 06/24/23 Dahlia Murphy NP 230 [place] [address] PCP - General Family Medicine 06/25/23 documented as of this encounter
--- OUTSIDE RECORDS SUMMARY | 2024-08-27 06:38 | XMS_ITS | Encounter Summary ---
Author Organization [facility] [facility] Address [address] [place] [address] Care Team Providers Care Acquisition Professional Name Role Phone Tania Heck Primary Care Provider [phone] Nargis Alvarenga MERCHANT MARINER Primary Care Provider [phone] Dahlia Murphy MERCHANT MARINER Primary Care Provider [phone] Reason for Visit * Reason Comments Med Refill Encounter Details Date Type Department Care Team (Late st Contact Info) Description 12/25/2022 Refill [facility] MEDICINE [address] [place] [address] Tania Heck FNP [address] [place] [address] Dept [place] [address] Dizziness and giddiness Social History Tobacco Use [...] 10/13/2024 3:15 PM EDT Office Visit [facility] MEDICINE 230 [place] [address] Dahlia Murphy, TIFFANY 230 [place] [address] documented as of this encounter Visit Diagnoses Diagnosis Dizziness and giddiness documented in this encounter Additional Health Concerns Assessment Noted Time PHQ-9 Depression Total Score: 11 023 2:37 PM EST documented as of this encounter Care Teams Acquisition Professional Relationship Specialty Start Date End Date Tania Heck FNP PCP - General Family Medicine 03/07/21 02/15/23 Nargis Alvarenga NP [address] [place] [address] PCP - General Family Medicine 02/16/23 06/24/23 Dahlia Murphy NP [address] [place] [address] PCP - General Family Medicine 06/25/23 documented as of this encounter
--- OUTSIDE RECORDS SUMMARY | 2024-08-27 06:38 | XMS_ITS | Clinical Summary ---
Author Organization [employer] Address [address] [place] [address] 7t [place] [address] Care Team Providers Care Assembler Skylights Name Role Phone Dahlia Murphy NP Primary Care Provider [phone] Allergies No known active allergies Medications * [...] IN THE MORNING 45 tablet 5 Active Tirzepatide-Weigh t Management (Zepbound) 2.5 MG/0.5ML solution auto-injectorIndi cations:Type 2 diabetes mellitus with hyperglycemia, without long-term current use of insulin (CMS/HCC) Inject 0.5 mL (2.5 mg) under the skin 1 (one) time per week for 28 days. 2 mL 5 09/02/19 25 Active Hospital, Clinic, or Other Facility [...] hernia 11/20/2023 Overview (11/20/2023): Was repaired at [facility] in the past, she does not [...] Type Department Care Team Description 08/07/2024 Telephone [facility] MEDICINE [address] [place] [address] Dahlia Murphy NP Prior Auth Prescription (Zepbound) 08/05/2024 Telephone [facility] MEDICINE [address] [place] [address] Liliam Parra RN 08/04/2024 Orders Only [facility] MED[facility]INE [address] [place] [address] Dahlia Murphy NP Type 2 diabetes mellitus with hyperglycemia, without long-term current use of insulin ([facility]) (Primary Dx) 07/30/2024 Telephone [facility] MED[facility] [address] [place] [address] Dahlia Murphy NP appoinment cancel 07/22/2024 Telephone [facility] MED[facility] [address] [place] [address] Chrissie Huizar MA Chart Prep 07/15/2024 9:00 AM EST Office Visit [facility] [address] [place] [address] Amarilis Mazariegos MD Abscess of buttock, right (Primary Dx) 06/24/2024 Refill [facility] MED & PEDS [address] [place], [place] [phone] Dahlia Murphy NP Iron deficiency anemia due to chronic blood loss 06/17/2024 4:00 PM EST Office Visit [facility] MEDICINE [address] [place] [address] Dahlia Murphy NP Type 2 diabetes mellitus with hyperglycemia, without long-term current use of insulin ([facility]) (Primary Dx); Tobacco user; Dietary counseling; Exercise counseling; Morbid obesity ([facility]/HCC) 06/05/2024 Telephone [facility] MEDICINE [address] [place] [address] Chrissie Huizar MA Chart Prep from Last 3 Months Immunizations Name Administration [...] Description 10/13/2024 3:15 PM EDT Office Visit [facility] MEDICINE [address] [place] [address] Dahlia Murphy NP [address] [place] [address] Health Maintenance Due Date Last Done Comments [...] exists SDOH Screening 08/14/2024 08/15/2023 Depression Monitoring 11/07/2024 05/09/2024, 024 Dental X-Ray: Full Mouth 03/08/2025 03/07/2022, 12/13 [...] EST Narrative 07/07/2024 12:46 PM EST ? [facility] ? [address] ?[place] [address] ? Ultrasound Report ? Signed ? Patient: Castanon Mcdowell,Michelle ?MR#: [id number] ?? [id number] ? : 1985 ?Acct:[id number] ? Age/Sex: 39 / F ?ADM Date: 07/07/24 ? Loc: HO.MAMMO ? Attending Dr: Dahlia Murphy MANAGER LIGHTING ? Ordering Physician: Dahlia Murphy NP ?? Date of Service: 07/07/24 ?? Procedure(s): US breast LT limited mamm only ?? Accession Number(s): [id number] ? cc: Dahlia Murphy MANAGER LIGHTING ? EXAMINATION: ?? MM DIAGNOSTIC DIGITAL BREAST [...] DD/ 1215 ? TD/TT: 07/07/24 1235 ? Oil Well Logger: ? Procedure Note Pee Hunter - 07/07/2024 [facility] [address] [place] [address] [place] [address] Ultrasound Report Signed Patient: Nesha HernandezredMR#: [id number] : 1985Acct:[id number] Age/Sex: 39 / FADM Date: 07/07/24 Loc: ROW[facility] Attending Dr: Dahlia Murphy NP Ordering Physician: Dahlia Murphy NP Date of Service: 07/07/24 Procedure(s): breast LT limited mamm only Accession Number(s): [id number] cc: Dahlia Murphy NP EXAMINATION: MM DIAGNOSTIC [...] 07/07/24 1243 DD/ 1215 TD/TT: 07/07/24 1235 Oil Well Logger: us Dahlia Murphy NP IMG US PROCEDURES Final Result * BI Mammogram Diagnostic Tomosynthesis Bilateral (07/07/2024 11:45 AM EST) Anatomical Region Laterality Modality Breast Bilateral Mammography 07/07/2024 11:4 5 AM EST Narrative 07/07/2024 12:46 PM EST ? [facility] ? [address] ?[place] [address] ? Mammography Report ? Signed ? Patient: Castanon Mcdowell,Michelle ?MR#: [id number] ?? [id number] ? : 1985 ?Acct:[id number] ? Age/Sex: 39 / F ?ADM Date: 07/07/24 ? Loc: HO.MAMMO ? Attending Dr: Dahlia Murphy MANAGER LIGHTING ? Ordering Physician: Dahlia Murphy MANAGER LIGHTING ?Results: 1Negati ?? ve ? Date of Service: 07/07/24 ?Follow Up: 1 Year From Orig ?? inal Mammogram ? Procedure(s): MM tomosynthesis diagnostic BI ?? Accession Number(s): [id number] ? cc: Dahlia Murphy MANAGER LIGHTING ? EXAMINATION: ?? MM DIAGNOSTIC DIGITAL BREAST [...] DD/ 1145 ? TD/TT: 07/07/24 1209 ? Oil Well Logger: ? Procedure Note Dale, Image - 07/07/2024 [facility] [address] [place] [address] Dr. [place], [place] [address] Mammography Report Signed Patient: Nesha HernandezredMR#: [id number] : 1985Acct:[id number] Age/Sex: 39 / FADM Date: 07/07/24 Loc: TODO Attending Dr: Dahlia Murphy MANAGER LIGHTING Ordering Physician: Dahlia Murphy NPResults: 1Negati ve Date of Service: 07/07/24Follow Up: 1 Year From [facility] ina Mammogram Procedure(s): MM tomosynthesis diagnostic BI Accession Number(s): [id number] cc: Dahlia Murphy NP EXAMINATION: MM DIAGNOSTIC [...] 07/07/24 1243 DD/ 1145 TD/TT: 07/07/24 1209 Oil Well Logger: us Dahlia Murphy NP IMG BI PROCEDURES Final Result * POCT Glucose (06/17/2024 4:53 PM EST) Pathologist [facility] Glucose Blood, POC 112 60 - 200 mg/dL QC Media Lot # [id number] Lot# Expiration Date 62,425 Blood Capillary blood specimen / Unknown 06/17/2024 4:53 PM EST Dahlia Murphy MANAGER LIGHTING POINT OF CARE TEST ENTER/EDIT OR DERABLES Final Result * (ABNORMAL) POCT HGB A1C (05/09/2024 11:46 AM EST) Pathologist [facility] Hemoglobin A1C 7.4(A) 4.0 - 6.0 % QC Media Lot # [id number] Lot# Expiration Date Blood 05/09/2024 11:4 6 AM EST Result [facility] Dahlia Murphy MANAGER LIGHTING POINT OF CARE TEST ENTER/EDIT OR DERABLES Final Result * Referral to Ophthalmology (11/07/2023) Dahlia Murphy MANAGER LIGHTING OUTPATIENT REFERRAL ORDERABLES F inal Result * Albumin, Random Urine W/O Creatinine (10/16/2022 8:16 AM EDT) [facility] Albumin, Urine 36.0 See Note: mg/dL [facility] [place] [facility] Comment: Reference Range: Reference Range Not established Verified by repeat analysis. [facility] [employer] [facility] Comment: The ADA defines abnormalities in albumin [...] PM EDT FASTING:YES FASTING: YES Tania Heck [facility] URINE ORDERABLES Final Result [facility] [address] [facility], [facility], [place] [address] [facility] [address] [place] [address] * (ABNORMAL) Lipid Panel, Standard (10/16/2022 8:16 AM EDT) [facility] Signature Cholesterol, Total 126 <200 mg/dL [facility] HDL Cholesterol 32(L) > OR = 50 mg/dL [facility] Triglycerides 236(H) <150 mg/dL [facility] Comment: If a non-fasting specimen was collected, consider repeat triglyceride testing on a fasting specimen if clinically indicated. Addis et al. J. of Clin. Lipidol. 2015;9:129-169. LDL Cholesterol 65 mg/dL (calc) [facility] Comment: Reference range: <100 Desirable range <100 mg/dL for primary prevention; ?? <70 mg/dL for patients with CHD or diabetic patients with > or = 2 CHD risk factors. LDL-C is now calculated using the Mitch-Neri calculation, which is a validated novel method providing better accuracy than the Friedewald equation in the estimation of LDL-C. Mitch SS et al. ARELY. 2013;310(19): 1824-6917 (http://education.[employer]/faq/SIW496) Chol/HDLC Ratio 3.9 <5.0 (calc) [facility] [employer] Non-HDL Cholesterol 94 <130 mg/dL (calc) [facility] Comment: For patients with diabetes plus 1 major ASCVD risk factor, treating to a non-HDL-C goal of <100 mg/dL (LDL-C of <70 mg/dL) is considered a therapeutic option. Blood Venous blood specimen / Unknown 10/16/2022 8:16 AM EDT 10/16/2022 8:16 AM EDT Narrative [facility] - 10/16/2022 10:25 PM EDT FASTING:YES FASTING: YES Tania Heck SERVICE DEPARTMENT MANAGER LAB BLOOD ORDERABLES Final Result [facility] [address] [facility], [facility], [place] [address] [facility] [address] [place] [address] * HM PAP/HPV (08/03/2022) Pap Negative for intraephithelial lesion or malignancy Negative for intraephithelial lesion or malignancy, Epithelial cell abnormality HPV Not Detected Undetected, Indeterminate, Quantitative, Not Detected Historical Provider MD HEALTH MAINTENANCE Final Result * HEPATITIS C AB W/REFL TO HCV RNA, QN, PCR (03/08/2022 8:59 AM EDT) Pathologist [facility] HEPATITIS C ANTIBODY NON-REACTI VE NON-REACT KENY CONVERTED LEGACY LABS INDEX 0.05 <1.00 CONVERTED LEGACY LABS Comment: ?? HCV antibody was non-reactive. There is no laboratory ?? evidence of HCV infection. ?? In most cases, no further action is required. However, if recent HCV exposure is suspected, a test for HCV RNA (test code 98588) is suggested. ?? For additional information please refer to http://education.[employer]/faq/TOT08l9 (This link is being provided for informational/ educational purposes only.) ?? 03/08/2022 8:59 AM EDT Tania Heck SERVICE DEPARTMENT MANAGER HISTORICAL/NON ORDERABLE L ABS Final Result CONVERTED [...] ? For additional information please refer to http://Preventes.fr.[employer]/faq/XHH450 (This link is being provided for informational/ educational purposes only.) ? The performance of this assay has not been clinically validated in patients less than 2 years old. ?? 03/08/2022 8:59 AM EDT Tania Heck SERVICE DEPARTMENT MANAGER LAB BLOOD ORDERABLES Final Result CONVERTED LEGACY LABS from Last 3 Months or Most Recently Relevant to Health Maintenance Insurance [facility] - H[facility] PARTIAL (MEDICAID) Care Teams Assembler Skylights Relationship Specialty Start Date End Date Dahlia Murphy NP [address] [place] [address] PCP - General Family Medicine 06/25/23
--- OUTSIDE RECORDS SUMMARY | 2024-08-27 06:38 | XMS_ITS | Encounter Summary ---
Author Organization [facility] Address [address] [place] [address] 7 [place] [address] Care Team Providers Care Reversal Print Inspector Name Role Phone Tania Heck Che ELECTRIC FORK OPERATOR Primary Care Provider [phone] Nargis Alvarenga [facility] Primary Care Provider Dahlia Murphy NP Primary Care Provider [phone] Encounter Details Date Type Department Care Team (Late st Contact Info) Description 05/05/2022 Abstract [facility] [address] [place] [address] Jame Richards DDS [address] [place] [address] Social History Tobacco Use Types Packs/Day Years [...] Description 10/13/2024 3:15 PM EDT Office Visit [facility] MEDICINE [address] [place] [address] Dahlia Murphy NP [address] [place] [address] documented as of this encounter Visit Diagnoses Not on filedocumented in this encounter Care Teams Reversal Print Inspector Relationship Specialty Start Date End Date Tania Heck FNP PCP - General Family Medicine 03/07/21 02/15/23 Nargis Alvarenga NP [address] [place] [address] PCP - General Family Medicine 02/16/23 06/24/23 Dahlia Murphy NP [address] [place] [address] PCP - General Family Medicine 06/25/23 documented as of this encounter
[2024-09-23 09:51] VITALS: BMI 32.1
--- NOTE | 2024-09-24 09:32 | HO.ANESPROP2 ---
HPI - Anesthesia Eval Consult details Narrative: 39yo F for Left Wide Local Excision Buttocks Mass Follows [facility] Cardiology for PVCs well controlled on beta block. Stable at 07/2024 office visit for 1 year routine f/u. Anesthesia Pre-Procedure Meds Is the patient on any of the following meds?: GLP1/DPP4 and SGLT2 Inhib PMFSH Active Problems Active Problems: All Active Problems Mass of soft tissue (Acute) Pain in finger of right hand (Acute) Trigger finger, right middle finger (Acute) Varicose veins of right lower extremity with inflammation (Acute) Abdominal pain (Acute) Epidermal inclusion cyst (Acute) Well woman exam (Acute) Yeast infection of the vagina (Acute) Palpitation (Acute) Anemia (Chronic) Urine incontinence (Acute) Menorrhagia (Acute) Diarrhea (Acute) Mixed irritable bowel syndrome (Acute) Hemorrhoids (Acute) Lactose intolerance (Acute) Left breast lump (Acute) High cholesterol (Acute) Abnormal uterine bleeding (Acute) PVC (premature ventricular contraction) (Acute) Myxoinflammatory fibroblastic sarcoma (Acute ~08/2017) Past Medical History Medical History (Updated 09/23/24 @ 09:50 by Alize Callejas RN) History of anemia Bipolar disorder, unspecified PTSD (post-traumatic stress disorder) Depression Anxiety SHARIFA on CPAP PVC (premature ventricular contraction) Arthritis Abnormal uterine bleeding Cardiac arrhythmia Scoliosis Fibromyalgia Carpal tunnel syndrome Panic attacks High cholesterol Type 2 diabetes mellitus Family History Family History Father History of stroke History of prostate cancer Mother History of breast cancer History of diabetes mellitus History of cardiovascular disorder Family history of problems with anesthesia: No Surgical History Surgical History Hx of hysterectomy (10/15/23) Hx of esophagogastroduodenoscopy Hx of colonoscopy H/O excision of mass Tubal ligation status S/P repair of ventral hernia (~11/2017) H/O excision of mass Previous section Myxoinflammatory fibroblastic sarcoma (~08/2017) History of Problems with Anesthesia: No Social History Social History Household Members: Spouse and Children Housing: Apartment Are you a primary social worker palliative care to a significant other at home: Yes (9 year old child) Do you presently have visiting nurse or other home services: No Alcohol intake: former Patient Tobacco Use Status: Current everyday Tobacco user Tobacco use type: Cigarette Cigarettes Per Day: 8 Years Smoked: 15 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 Sexual orientation: Straight/Heterosexual Gender identity: Female Meds Allergies Allergy/AdvReac Type Severity Reaction Status Date / Time dextran sulfate AdvReac hot and Verified 08/19/24 13:48 itchy Home Medications ?Medication ?Instructions ?Recorded ?Confirmed ?Last Taken ?Type ascorbate calcium (vitamin C) 500 500 mg PO BID 02/18/20 09/23/24 Unknown History mg tablet metformin 1,000 mg tablet 1,000 mg PO BID 02/18/20 09/23/24 Unknown History losartan 25 mg tablet 25 mg PO DAILY 09/27/20 09/23/24 Unknown History atorvastatin 80 mg tablet 80 mg PO BEDTIME 06/15/22 09/23/24 Unknown History cyclobenzaprine 10 mg tablet 10 mg PO BEDTIME PRN Muscle Spasm 06/15/22 09/23/24 Unknown History hydroxyzine HCl 50 mg tablet 50 mg PO TID PRN anxiety 06/15/22 09/23/24 Unknown History omega-3 300 mg-dha 120 mg-epa 180 1 cap PO DAILY 06/15/22 09/23/24 Unknown History mg-fish oil 1,000 mg capsule paroxetine HCl 20 mg tablet 20 mg PO DAILY 06/15/22 09/23/24 Unknown History dapagliflozin propanediol 10 mg 10 mg PO QAM 10/24/22 09/23/24 Unknown History tablet (Farxiga) oxcarbazepine 300 mg tablet 300 mg PO DAILY 07/21/24 09/23/24 Unknown History tirzepatide (weight loss) 2.5 2.5 mg subcut QWEEK 09/23/24 09/23/24 Unknown History mg/0.5 mL subcutaneous pen injector (Zepbound) Exam Height,Weight and Vital Signs: Height 5 ft 7 in Weight 92.986 kg Pertinent Lab Results Pertinent Lab Results: Laboratory Tests 05/09/24 12:28 WBC 8.4 Hgb 12.5 Hct 39.3 Plt Count 315 Sodium 138 Potassium 3.9 Chloride 102 Carbon Dioxide 28 BUN 9 Creatinine 0.56 Narrative Narrative: EKG 07/2024 EKG Details: EKG shows normal sinus rhythm with poor R-wave progression most likely lead placement Assessment and Plan Assessment Anesthesia Assessment: Chart Reviewed Final Anesthetic Review Family History of Problems with Anesthesia: No History of Problems with Anesthesia: No
--- NOTE | 2024-09-25 07:37 | PC.NURSE ---
dr wall at bedside pt cancelled no mass on buttock will call the office as instructed by dr wall nad
[2024-09-25 07:38] LABS: Glucose, Whole Blood 92 mg/dL (60-115)
== END ==
LOC: HO.SSS 07:19
PROVIDERS: PCP Nurse Practitioner Family; Visit Provider Surgery
DX: M79.89 Other specified soft tissue disorders (principal); Z53.8 Procedure and treatment not carried out for other reasons; E11.9 Type 2 diabetes mellitus without complications; Z79.84 Long term (current) use of oral hypoglycemic drugs; Z79.85 Long-term (current) use of injectable non-insulin antidiabetic drugs
CPT/HCPCS: 82947

== ENCOUNTER 2025-03-24 09:31 | Outpatient (REF) | payer OTHER, SELFPAY ==
--- OUTSIDE RECORDS SUMMARY | 2025-03-24 10:32 | XMS_ITS | Encounter Summary ---
Author Organization [employer] Address [address] [place] [address] [address] [place] [address] Care Team Providers Care Maritime Guard Name Role Phone Nargis Alvarenga CARDING MACHINE FEEDER Primary Care Provider [phone] Dahlia Murphy CARDING MACHINE FEEDER Primary Care Provider [phone] Reason for Visit * Reason Comments Med Refill Encounter Details Date Type Department Care Team (Late Contact Info) Description 06/05/2023 Refill [facility] [address] [place] [address] Miriam Serrano FNP [address] [place] [address] Essential hypertension Social History Tobacco Use Types [...] Department Care Team (Late Contact Info) Description 05/25/2025 4:00 PM EST Office Visit [facility] [address] [place] [address] Dahlia Murphy NP [address] [place] [address] documented as of this encounter Visit Diagnoses Diagnosis Essential hypertension Unspecified essential hypertension documented in this encounter Additional Health Concerns Assessment Noted Time PHQ-9 Depression Total Score: 11 023 2:37 PM EST documented as of this encounter Care Teams Maritime Guard Relationship Specialty Start Date End Date Nargis Alvarenga NP [address] [place] [address] PCP - General Family Medicine 02/16/23 06/24/23 Dahlia Murphy NP [address] [place] [address] PCP - General Family Medicine 06/25/23 documented as of this encounter
--- OUTSIDE RECORDS SUMMARY | 2025-03-24 10:32 | XMS_ITS | Encounter Summary ---
Author Organization [employer] Address [address] [place] [address] [address] [place] [address] Care Team Providers Care Salesperson Terrazzo Tiles Name Role Phone Nargis Alvarenga ETCH OPERATOR SEMICONDUCTOR WAFERS Primary Care Provider [phone] Dahlia Murphy ETCH OPERATOR SEMICONDUCTOR WAFERS Primary Care Provider [phone] Reason for Visit * Reason Comments Med Refill Encounter Details Date Type Department Care Team ([facility] st Contact Info) Description 06/05/2023 Refill [facility] [address] [place] [address] Gaby Balderrama, ODILIA [address] [place] [address] Health care maintenance; Essential hypertension Social History [...] Care Team (Late st Contact Info) Description 05/25/2025 4:00 PM EST Office Visit [facility] [address] [place] [address] Dahlia Murphy NP [address] [place] [address] documented as of this encounter Visit Diagnoses Diagnosis Health care maintenance Essential hypertension Unspecified essential hypertension documented in this encounter Additional Health Concerns Assessment Noted Time PHQ-9 Depression Total Score: 11 023 2:37 PM EST documented as of this encounter Care Teams Salesperson Terrazzo Tiles Relationship Specialty Start Date End Date [place] [address] PCP - General Family Medicine 02/16/23 06/24/23 Dahlia Murphy NP [address] [place] [address] PCP - General Family Medicine 06/25/23 documented as of this encounter
--- OUTSIDE RECORDS SUMMARY | 2025-03-24 10:32 | XMS_ITS | Encounter Summary ---
Author Organization [employer] Address [address] [facility] 7[address] [place] [address] Care Team Providers Care Automobile Painter Name Role Phone Dahlia Murphy NP Primary Care Provider [phone] Reason for Visit * Reason Comments Med Refill Encounter Details Date Type Department Care Team ([facility] st Contact Info) Description 10/19/2023 Refill [facility] [address] [place] [address] Name, MD Dain [address] [place] [address] High cholesterol Social History Tobacco Use Types [...] Description 05/25/2025 4:00 PM EST Office Visit [facility] MED[facility]INE [address] [place] [phone] Dahlia Murphy NP [address] [place] [address] documented as of this encounter Visit Diagnoses Diagnosis High cholesterol Pure hypercholesterolemia documented in this encounter Additional Health Concerns Assessment Noted Time PHQ-9 Depression Total Score: 16 024 2:43 PM EDT documented as of this encounter Care Teams Automobile Painter Relationship Specialty Start Date End Date Dahlia Murphy NP [address] [place] [address] PCP - General Family Medicine 06/25/23 documented as of this encounter
--- OUTSIDE RECORDS SUMMARY | 2025-03-24 10:32 | XMS_ITS | Encounter Summary ---
Author Organization [employer] Address [address] [place] [address] 7 [place] [address] Care Team Providers Care Branner Machine Tender Name Role Phone Dahlia Murphy NP Primary Care Provider [phone] Reason for Visit * Reason Onset Date Comments Med Refill 07/24/2023 Encounter Details Date Type Department Care Team (Late st Contact Info) Description 07/24/2023 Telephone [facility] [address] [place] [address] Dahlia Murphy NP [address] [place] [address] Med Refill Social History Tobacco Use Types [...] 300 MG tablet To be sent to: [facility] - [place], [place] - [address] [facility] Pt needs meds for med box. documented in this encounter Plan of Treatment Upcoming Encounters Date Type Department Care Team ([facility] st Contact Info) Description 05/25/2025 4:00 PM EST Office Visit [facility] [address] [place] [address] Dahlia Murphy NP [address] [place] [address] documented as of this encounter Visit Diagnoses Not on filedocumented in this encounter Additional Health Concerns Assessment Noted Time PHQ-9 Depression Total Score: 11 023 2:37 PM EST documented as of this encounter Care Teams Branner Machine Tender Relationship Specialty Start Date End Date Dahlia Murphy NP [address] [place] [address] PCP - General Family Medicine 06/25/23 documented as of this encounter
--- OUTSIDE RECORDS SUMMARY | 2025-03-24 10:32 | XMS_ITS | Encounter Summary ---
Author Organization [employer] Address [address] [facility] 7t [place] [address] Care Team Providers Care Chemical Test Engineer Name Role Phone Dahlia Murphy NP Primary Care Provider [phone] Reason for Visit * Reason Onset Date Comments Med Refill 03/24/2025 Pt walked in req uesting med refill for zepbound. Encounter Details Date Type Department Care Team ([facility] st Contact Info) Description 03/24/2025 Telephone [facility] [address] [place] [address] Dahlia Murphy NP [address] [place] [address] Med Refill (Pt walked in requesting med refill for zepbound.) Social History Tobacco Use Types Packs/Day Years Used Date Smoking Tobacco: Every Day Cigarettes Smokeless Tobacco: Never Alcohol Use Standard Drinks/Week Comments Never 0 (1 standard drink = 0.6 oz pur e alcohol) Depression Answer Date Recorded Patient Health Questionnaire-9 Score 11 03/03/2025 Patient Health Questionnaire-9 Score 11 03/03/2025 Last PHQ-9: Questionnaire Data Not on file 1 Housing Stability Answer Date Recorded What is your housing situation today? I have noah king 11/05/[address] you li ve. Do you have problems with any of the following? None of the above 11/05/2024 Food Insecurity Answer Date Recorded Within the past 12 months, y ou worried that your food would run out before you got money to buy more: Never True 11/05/2024 Within the past 12 months,th e food you bought just didn't last and you didn't have enough money to get more: Never True Transportation Answer Date Recorded In the past 12 months, has l ack of transportation kept you from medical appts, meetings, work or from getting things needed for daily living? No 11/05/2024 Utilities Answer Date Recorded In the past 12 months, has t he electric, gas, oil or water company threatened to shut off services in your home? No 11/05/2024 Depression Answer Date Recorded Patient Health Questionnaire-2 Score 4 03/03/2025 Internet Access Answer Date Recorded Internet Access Q1 Yes 11/05/2024 Internet Access Q2 Not on file 11/05/2024 Comments Unknown Sex and Gender Information Value Date Recorded Sex Assigned at Female 03/13/2022 10:33 AM EDT Legal Sex Female 10:33 AM EDT Gender Identity Female 03/13/2022 10:33 AM EDT Sexual Orientation Straight 03/13/2022 10 :33 AM EDT documented as of this encounter Miscellaneous Notes * Telephone Encounter - Genoveva Jean RN - 03/24/2025 9:48 AM EST TC placed to [facility] pharmacy to determine if refills available on Tirzepatide- Weight Management (Zepbound) 5 MG/0.5ML solution auto-injector. Spoke with pharmacy staff Tika who states they have a prescription on file for the 5 MG, but it requires a PA. Tika state the 5 MG dose still requires a PA and was sent up in February for PA completion and is still showing PA needs to be completed. Tika states pt last received a fill for prescription on 02/03/25, so pt was out on 02/24/25. Per pharmacy pt, is now almost a month without the medication so will likely need to be dropped down to the 2.5 MGdose again. Message forwarded to PCP to review and advise. * Telephone Encounter - Bhavna Jefferson - 03/24/2025 9:31 AM EST Pt walked in requesting med refill for zepbound. documented in this encounter Plan of Treatment Upcoming Encounters Date Type Department Care Team (Late st Contact Info) Description 05/25/2025 4:00 PM EST Office Visit [facility] [address] [place] [address] Dahlia Murphy NP [address] [place] [address] documented as of this encounter Visit Diagnoses Not on filedocumented in this encounter Additional Health Concerns Assessment Noted Time PHQ-9 Depression Total Score: 11 025 2:20 PM EDT documented as of this encounter Care Teams Chemical Test Engineer Relationship Specialty Start Date End Date Dahlia Murphy NP [address] [place] [address] PCP - General Family Medicine 06/25/23 documented as of this encounter
--- OUTSIDE RECORDS SUMMARY | 2025-03-24 10:32 | XMS_ITS | Encounter Summary ---
Author Organization [employer] Address [address] [place] [address] [address] [place] [address] Care Team Providers Care Software Testing Specialist Name Role Phone Tania Heck MACHINE SCALLOP CUTTER Primary Care Provider Ara Nargis Santana PAID SEARCH SPECIALIST Primary Care Provider [phone] Dahlia Murphy PAID SEARCH SPECIALIST Primary Care Provider [phone] Encounter Details Date Type Department Care Team (Late st Contact Info) Description 05/05/2022 Abstract [facility] [address] [place] [address] Jame Richards DDS [address] [place] [address] Social History Tobacco Use Types Packs/Day Years [...] Description 05/25/2025 4:00 PM EST Office Visit [facility] [address] [place] [address] Dahlia Murphy NP [address] [place] [address] documented as of this encounter Visit Diagnoses Not on filedocumented in this encounter Care Teams Software Testing Specialist Relationship Specialty Start Date End Date Tania Heck FNP PCP - General Family Medicine 03/07/21 02/15/23 Nargis Alvarenga NP [address] [place] [address] PCP - General Family Medicine 02/16/23 06/24/23 Dahlia Murphy NP [address] [place] [address] PCP - General Family Medicine 06/25/23 documented as of this encounter
--- OUTSIDE RECORDS SUMMARY | 2025-03-24 10:32 | XMS_ITS | Encounter Summary ---
Author Organization [employer] Address [address] [place] [address] [address] [place] [address] Care Team Providers Care Addressing Machine Operator Name Role Phone Tania Heck Primary Care Provider Nargis Wilkinson SHUTDOWN PLANNER Primary Care Provider [phone] Dahlia Murphy NP Primary Care Provider [phone] Reason for Visit * Reason Comments Med Refill Encounter Details Date Type Department Care Team (Late Contact Info) Description 12/25/2022 Refill [facility] [address] [place] [address] Tania Heck FNP Dizziness and giddiness Social History Tobacco Use [...] Description 05/25/2025 4:00 PM EST Office Visit [facility] [address] [place] [address] Dahlia Murphy NP [address] [place] [address] documented as of this encounter Visit Diagnoses Diagnosis Dizziness and giddiness documented in this encounter Additional Health Concerns Assessment Noted Time PHQ-9 Depression Total Score: 11 023 2:37 PM EST documented as of this encounter Care Teams Addressing Machine Operator Relationship Specialty Start Date End Date Tania Heck FNP PCP - General Family Medicine 03/07/21 02/15/23 Nargis Alvarenga NP [address] [place] [address] PCP - General Family Medicine 02/16/23 06/24/23 Dahlia Murphy NP [address] [place] [address] PCP - General Family Medicine 06/25/23 documented as of this encounter
--- OUTSIDE RECORDS SUMMARY | 2025-03-24 10:32 | XMS_ITS | Clinical Summary ---
Author Organization [employer] Address [address] [place] [address] [address] [place] [address] Care Team Providers Care Power Shovel Operator Name Role Phone Dahlia Murphy NP Primary Care Provider [phone] Allergies No known active allergies Medications * This document contains information received from the source organization and may not represent a complete record from that organization. OXcarbazepine (Trileptal) 300 MG tablet take 1 tablet by oral route 2 times every day Active metoprolol succinate XL (Toprol-XL) 50 MG 24 hr tablet Take 1 and 1/2 tablet by mouth daily Active hydrOXYzine HCl (Atarax) 50 MG tablet TAKE 1 TABLET BY MOUTH THREE TIMES DAILY NEEDED FOR ANXIETY OR FOR SLEEP 023 Active Alcohol Swabs (Alcohol Pads) 70 % padsIndications :Type 2 diabetes mellitus without complication, without long-term current use of insulin ([facility]) 1 each 3 times daily. Use 3 time daily to test blood sugar 100 each 024 Active glucose blood (FREESTYLE LITE) test stripIndication s:Type 2 diabetes mellitus without complication, without long-term current use of insulin (HCC) 1 each by Other route 3 times daily. Use as instructed 100 each 024 Active TRUEplus Lancets 33G miscIndications :Type 2 diabetes mellitus without complication, without long-term current use of insulin ([facility]) 1 each 3 times daily. Use to test blood sugar 3 times daily 100 each 024 Active naproxen (Naprosyn) 500 MG tabletIndicatio ns:Muscle pain take 1 tablet by oral route 2 times every day with food prn 30 tablet 1 024 Active metFORMIN (Glucophage) 1000 MG tabletIndicatio ns:Type 2 diabetes mellitus without complication, without long-term current use of insulin (HCC) TAKE 1 TABLET BY MOUTH TWICE DAILY IN THE MORNING AND IN THE EVENING WITH FOOD 180 tablet 2 025 Active Ascorbic Acid (vitamin C) 500 MG tabletIndicatio ns:Iron deficiency anemia secondary to blood loss (chronic) TAKE 2 TABLETS BY MOUTH ONCE DAILY IN THE MORNING 180 tablet 1 025 Active omega-3 (Fish Oil) 1000 MG capsuleIndicati ons:High cholesterol TAKE 1 CAPSULE BY MOUTH EVERY MORNING 90 capsule 1 025 Active ibuprofen 600 MG tablet Take 1 tablet (600 mg) by mouth every 6 (six) hours if needed for mild pain. 40 tablet 1 025 2025 Active pseudoephedrine ER (Sudafed-12 Hour) 120 MG 12 hr tablet Take 1 tablet (120 mg) by mouth every 12 (twelve) hours if needed for congestion. Do not crush, chew, or split. 20 tablet 025 2025 Active nicotine polacrilex (Nicorette) 4 MG gumIndications: Tobacco user Chew 1 each (4 mg) if needed for smoking cessation. 100 each 1 025 Active nicotine (Nicoderm CQ) 14 MG/24HR patchIndication s:Tobacco user Place 1 patch on the skin 1 (one) time each day at the same time. 30 patch Active dapagliflozin (Farxiga) 5 MGIndications:T ype 2 diabetes mellitus with hyperglycemia, without long-term current use of insulin (HCC) Take 1 tablet (5 mg) by mouth Once per day. 90 tablet 1 025 2025 Active ferrous gluconate (Fergon) 324 (38 Fe) MG tabletIndicatio ns:Iron deficiency anemia due to chronic blood loss TAKE 1 TABLET BY MOUTH EVERY OTHER DAY IN THE MORNING 45 tablet 025 Active nicotine (Nicoderm CQ) 14 MG/24HR patch Place 1 patch on the skin 1 (one) time each day at the same time. 42 patch 025 Active nicotine (Nicoderm CQ) 7 MG/24HR patch Place 1 patch on the skin 1 (one) time each day at the same time. 14 patch Active nicotine polacrilex (Commit) 4 MG lozenge Dissolve 1 lozenge (4 mg) in the mouth every 2 (two) hours if needed for smoking cessation. 100 lozenge Active albuterol 108 (90 Base) MCG/ACT inhaler Inhale 2 puffs every 4 (four) hours if needed for wheezing or shortness of breath. 18 g 3 025 2025 Active Spacer/Aero-Hol ding Chambers (OptiChamber Tiffanie) misc 1 each every 4 (four) hours if needed (asthma). 1 each Active ibuprofen 400 MG tablet Take 1 tablet (400 mg) by mouth every 6 (six) hours if needed for moderate pain or fever for up to 30 doses. 20 tablet Active acetaminophen (Tylenol) 500 MG tablet Take 2 tablets (1,000 mg) by mouth every 6 (six) hours if needed for moderate pain or fever for up to 25 doses. 50 tablet Active cetirizine (ZyrTEC) 10 MG tablet TAKE 1 TABLET BY MOUTH EVERY MORNING 30 tablet 3 Active fluticasone (Flonase) 50 MCG/ACT nasal sprayIndication s:Seasonal allergic rhinitis, unspecified trigger INSTILL 2 SPRAYS IN EACH NOSTRIL ONCE DAILY 16 g 3 Active atorvastatin (Lipitor) 80 MG tabletIndicatio ns:Hypertriglyc eridemia TAKE 1 TABLET BY MOUTH EVERY MORNING 90 tablet 1 Active losartan (Cozaar) 25 MG tabletIndicatio ns:Essential hypertension TAKE 1 TABLET BY MOUTH EVERY MORNING 90 tablet 1 Active Multiple Vitamin (Multivitamin) tabletIndicatio ns:Health care maintenance TAKE 1 TABLET BY MOUTH EVERY MORNING 90 tablet 1 Active cyclobenzaprine (Flexeril) 10 MG tabletIndicatio ns:Muscle pain TAKE 1 TABLET BY MOUTH BEFORE BEDTIME NEEDED 30 tablet Active Tirzepatide-Papo ght Management (Zepbound) 5 MG/0.5ML solution auto-injectorIn dications:Type 2 diabetes mellitus with hyperglycemia, without long-term current use of insulin (HCC) Inject 0.5 mL (5 mg) under the skin 1 (one) time per week. 4 mL 025 2024 Active PARoxetine (Paxil) 20 MG tablet Take 20 mg by mouth in the morning. 023 2024 Discontinued(T herapy completed) cyclobenzaprine (Flexeril) 10 MG tabletIndicatio ns:Muscle pain TAKE 1 TABLET BY MOUTH BEFORE BEDTIME NEEDED 30 tablet 024 2024 Discontinued(R eorder (will not trigger notification to Pharmacy)) atorvastatin (Lipitor) 80 MG tabletIndicatio ns:Hypertriglyc eridemia TAKE 1 TABLET BY MOUTH EVERY MORNING 90 tablet 1 025 2024 Discontinued losartan (Cozaar) 25 MG tabletIndicatio ns:Essential hypertension TAKE 1 TABLET BY MOUTH EVERY MORNING 90 tablet 1 025 2024 Discontinued Multiple Vitamin (Multivitamin) tabletIndicatio ns:Health care maintenance TAKE 1 TABLET BY MOUTH EVERY MORNING 90 tablet 1 025 2024 Discontinued Zepbound 5 MG/0.5ML solution auto-injectorIn dications:Type 2 diabetes mellitus with hyperglycemia, without long-term current use of insulin (HCC) INJECT ONE PEN (=5MG) SUBCUTANEOUSLY ONCE A WEEK DIRECTED 2 mL 1 025 2024 Discontinued(R eorder (will not trigger notification to Pharmacy)) Hospital, Clinic, or Other Facility Administered Medication Ordered Dose Route Frequency Start Date End Date Status ipratropium-albuterol (Duo-Neb) 0.5-2.5 mg/3 mL nebulizer solution 3 mLIndications:Acute bronchitis, unspecified organism 3 mL NEBULIZATION Once 09/25/2023 Ac tive Active Problems Problem Noted Date Diagnosed Date Acute right-sided low back pain 03/03/2025 Assessment & Plan (03/03/2025 4:36 PM EDT): Tobacco dependence 01/21/2025 Assessment & Plan (03/03/2025 4:36 PM EDT): Major depressive disorder 06/05/2024 Assessment & Plan (03/03/2025 4:36 PM EDT): Breast pain 05/09/2024 Assessment & Plan (05/09/2024 [...] movement, working up to 30 minutes daily Family history of malignant neoplasm of ovary Recurrent ventral hernia 11/20/2023 Overview (11/20/2023): Was repaired at [facility] in the past, she does not think mesh was used. Now the hernia is out again. Dermatochalasis of both upper eyelids 08/28/2023 Assessment & Plan (08/28/2023 10:15 AM EDT): Bothersome to patient, not impacting vision. Referral to eye and lasix Generalized anxiety disorder 08/27/2023 Assessment & Plan (08/28/2023 10:11 AM EDT): Continue current regimen , referred to therapy Tobacco user 08/21/2023 Assessment & Plan (11/05/2024 3:57 PM EDT): Motivated to quit, renewed NRT Assessment & Plan (07/06/2024 3:55 PM EST): [...] resolve Muscle pain 08/21/2023 Assessment & Plan (03/03/2025 4:36 PM EDT): Orders: cyclobenzaprine (Flexeril) 10 MG tablet; TAKE 1 TABLET BY MOUTH BEFORE BEDTIME NEEDED Assessment & Plan (08/28/2023 10:08 AM EDT): [...] ENT appt on 05/03/23 Bipolar II disorder ([facility]) 06/01/2022 Assessment & Plan (08/28/2023 10:10 AM EDT): Insightful willing to resume therapy though hesitant, employed. 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 Assessment & Plan (11/05/2024 3:57 PM EDT): Pt with sig improvement in A1c and wt loss since initiation of glp-1 However notes occasional hypoglyemic episodes, Continue glp-1 reduce farxiga to 5 mg Conitnue metformin Comprehensive labs due at follow up in 3-6 months Assessment & Plan (07/06/2024 3:57 PM EST): Improved glycemic control, continue metformin 1000 mg bid And farxgia Assessment & Plan (05/09/2024 5:16 PM EST): At goal today, pt declines glp-1 Assessment & Plan (08/28/2023 10:09 AM EDT): Stable, slightly above goal of <7, continue current regimen In person hgb A1c 7.2 Morbid obesity (CMS/HCC) 04/02/2018 Assessment & Plan (07/06/2024 3:54 PM [...] vigorous-intensity activity Obstructive sleep apnea syndrome 04/02/2018 Assessment & Plan (03/03/2025 4:36 PM EDT): Orders: Referral to Sleep Medicine; Future Hypertriglyceridemia 10/01/2017 Cardiac arrhythmia 08/28/2017 Dyslipidemia 08/28/2017 Fibromyalgia 08/28/2017 Mixed anxiety and depressive disorder 08/28/2017 Assessment & Plan (03/03/2025 4:36 PM EDT): Weakness of left upper extremity 08/28/2017 Resolved Problems Problem Noted Date Diagnosed Date Resolved Date Abscess of buttock, right 07/15/2024 Assessment & Plan (07/15/2024 9:16 AM EST): Right buttock, 4 cm erythematous, indurated area that stretches about 7 cm. Consistent with abscess. -prescribed doxycycline (Vibramycin) 100 MG Take 1 capsule (100 mg) by mouth 2 times daily for 10 days -given work note. -referred to General Surgery. Dental abscess 12/11/2023 10/16/2024 Bronchitis with acute wheezing 09/13/2023 10/16/2024 Assessment & Plan (09/13/2023 3:49 PM EDT): [...] by her PCP in 08/21/2023 including CBC,TSH,Chem Encounters Date Type Department Care Team Description 03/24/2025 Telephone [facility] [address] [place] [phone] Dahlia Murphy NP Med Refill (Pt walked in requesting med refill for zepbound.) 03/03/2025 1:45 PM EDT Office Visit [facility] [address] [place] [address] Dahlia Murphy NP Essential hypertension (Primary Dx); Type 2 diabetes mellitus with hyperglycemia, without long-term current use of insulin (HCC); Ventricular premature complex; Mixed anxiety and depressive disorder; Moderate episode of recurrent major depressive disorder (CMS/HCC) (HCC); Tobacco dependence; Obstructive sleep apnea syndrome; Acute right-sided low back pain, unspecified whether sciatica present; Muscle pain; Encounter for immunization 03/03/2025 Travel 03/02/2025 Telephone [facility] [address] [place] [phone] Dahlia Murphy NP CHARTPREP 03/01/2025 Refill [facility] [address] [place] [address] Dahlia Murphy NP Hypertriglyceridemia; Essential hypertension; Health care maintenance 01/30/2025 Refill [facility] [address] [place] [phone] Nicky Orlando DO Seasonal allergic rhinitis, unspecified trigger 01/27/2025 Refill [facility] [address] [place], [place] [phone] Dahlia Murphy NP Type 2 diabetes mellitus with hyperglycemia, without long-term current use of insulin ([facility]) 01/22/2025 Telephone [facility] [address] [place] [phone] Dahlia Murphy NP Sep recall 01/21/2025 11:20 AM EDT Telemedicine [facility] [address] [place] [phone] Manish Alcala MD COVID-19 (Primary Dx); Tobacco dependence 01/21/2025 Travel 01/21/2025 Telephone [facility] [address] [place] [phone] Dahlia Murphy NP Nurse Triage 01/07/2025 Refill [facility] [address] [place], [place] [phone] Dahlia Murphy NP Iron deficiency anemia due to chronic blood loss from Last 3 Months Immunizations Immunization Administration Dates Next Due Hep B, adult 03/09/2022,07/04/2018,05/31/2018 Influenza Injectable Quadriv alant Preservative Free IIV4 MDCK 07/11/2021 Influenza injectable quadriv alent IIV4 with preservative 05/26/2019,04/02/2018 Influenza injectable quadriv alent preservative free 03/09/2022,06/21/2020 Influenza, seasonal, injecta ble, preservative free 03/03/2025 Pfizer Covid-19 Vaccine 12+ 12/30/2021,,12/25/2020 Pfizer Covid-19 [...] Sign Reading Time Taken Comments Blood Pressure 128/82 03/03/2025 1:39 PM EDT Pulse 88 03/03/2025 1:39 PM EDT Temperature 37.2 C (99 F) 03/03/2025 1:39 PM EDT Respiratory Rate 22 03/03/2025 1:39 PM EDT Oxygen Saturation 98% 03/03/2025 1:39 PM EDT Inhaled Oxygen Concentration - - Weight 86.9 kg (191 lb 9.6 oz) 03/03/2025 1:39 P M EDT Height 170.2 cm (5' 7 ) 03/03/2025 1:39 PM EDT Body Mass Index 30.01 03/03/2025 1:39 PM EDT Plan of Treatment Upcoming Encounters Date Type Department Care Team (Late st Contact Info) Description 05/25/2025 4:00 PM EST Office Visit [facility] [address] [place], [place] [phone] Dahlia Murphy NP [address] [place], [place] [phone] Health Maintenance Due Date Last Done Comments Dental Prophylaxis 1984 Diabetes: Foot Exam 1994 Family Planning (PISQ) 1999 HPV Vaccines (1 - 3-dose series) 1999 Dental Oral Exam 07/12/2018 01/09/2018 Dental X-Ray: Bitewings 01/10/2019 01/09/2018 Diabetes: Urine Protein Screening 10/17/2023 10/16/2022, 03/08/2022 Lipid Panel 10/17/2023 10/16/2022, 03/0 05/2022, 03/08/2022, Additional history exists COVID-19 Vaccine ( season) 2025 12/30/2021, 12/30/2021, 01/16/2021, Additional history exists Dental X-Ray: Full Mouth 03/08/2025 03/07/2022, 12/13 Alcohol/Substance Use Screening 05/09/2025 05/09/2024 Depression Monitoring 09/01/2025 03/03/2025, 025 Diabetes: Hemoglobin A1C 09/01/2025 025, 11/05/2024, 05/09/2024, Additional history exists Disability Screening 11/05/2025 11/05/2024 SDOH Screening 11/05/2025 11/05/2024 Eye Exam 11/06/2025 11/07/2023 Tobacco Screening 01/21/2026 01/21/2025 Mammogram 07/07/2026 07/07/2024, 06/15, 01/30/2020 Cervical Cancer [...] Years) and At-Risk Patients (6 to 49) Years Completed 06/21/2022, 08/05/2018 Influenza Vaccine Completed 03/03/2025, , 07/11/2021, Additional history exists HIB Vaccines Aged Out No longer eligi ble based on patient's age to complete this topic Hepatitis A Vaccines Aged Out No long er eligible based on patient's age to complete this topic IPV Vaccines Aged Out No longer eligi ble based on patient's age to complete this topic Meningococcal B Vaccine Aged Out No l onger eligible based on patient's age to complete [...] Procedure Name Priority Date/Time Associated Diagnosis Comments POCT GLYCATED HEMOGLOBIN, TOTAL Routine 03/03/2025 1:49 PM EDT Type 2 diabetes mellitus with hyperglycemia, without long-term current use of insulin (HCC) POCT GLUCOSE Routine 03/03/2025 1:48 PM EDT Type 2 diabetes mellitus with hyperglycemia, without long-term current use of insulin (HCC) BI US BREAST LIMITED LEFT Urgent 07/07/2024 12:15 PM EST AMB REFERRAL TO OPHTHALMOLOGY Routine 11/07/2023 Dermatochalasis [...] Recently Relevant to Health Maintenance Results * (ABNORMAL) POCT Hgb A1c (03/03/2025 1:49 PM EDT) Hemoglobin A1C 6.2(A) 4.0 - 5.7 % QC Media Lot # [id number] Lot# Expiration Date 51,227 Blood 03/03/2025 1:49 PM EDT Dahlia Murphy NP POINT OF CARE TEST ENTER/EDIT OR DERABLES Final Result * POCT Glucose (03/03/2025 1:48 PM EDT) Glucose Blood, POC 108 60 - 200 mg/dL QC Media Lot # [id number] Lot# Expiration Date Blood Capillary blood specimen / Unknown 03/03/2025 1:48 PM EDT us Dahlia Murphy NP POINT OF CARE TEST ENTER/EDIT OR DERABLES Final Result * BI US Breast Limited Left (07/07/2024 12:15 PM EST) Anatomical Region Laterality Modality Breast Left Ultrasound 07/07/2024 12:1 5 PM EST Narrative 07/07/2024 12:46 PM EST [facility]'[address] [place], [place] [address] Ultrasound Report Signed Patient: Michelle Hernandez MR#: [id number] : 1985 Acct:[id number] Age/Sex: 39 / F ADM Date: 07/07/24 Loc: HO.MAMMO Attending Dr: Dahlia Murphy NP Ordering Physician: Dahlia Murphy NP Date of Service: 07/07/24 Procedure(s): US breast LT limited mamm only Accession Number(s): [id number] cc: Dahlia Murphy UROLOGY PHYSICIAN EXAMINATION: MM DIAGNOSTIC DIGITAL BREAST TOMOSYNTHESIS, BILATERAL [...] by: Jannette Marie DO 07/07/2024 12:43 PM [facility] Dictated By: Jannette Marie DO Signed By: <Electronically signed by Jannette Marie DO in OV> 07/07/24 1243 DD/ 1215 TD/TT: 07/07/24 1235 Export Specialist: Procedure Note Donotuseinterpreter, Image - 07/07/2024 [facility] [address] [place] [address] Ultrasound Report Signed Patient: Michelle HenrandezMR#: [id number] : 1985Acct:[id number] Age/Sex: 39 / FADM Date: 07/07/24 Loc: HO.MAMMO Attending Dr: Dahlia Murphy NP Ordering Physician: Dahlia Murphy NP Date of Service: 07/07/24 Procedure(s): US breast LT limited mamm only Accession Number(s): [id number] cc: Dahlia Murphy NP EXAMINATION: MM DIAGNOSTIC [...] by: Jannette Marie DO 07/07/2024 12:43 PM [facility] Dictated By: Jannette Marie DO Signed By: <Electronically signed by Jannette Marie DO in OV> 07/07/24 1243 DD/ 1215 TD/TT: 07/07/24 1235 Export Specialist: Dahlia Murphy NP IMG US PROCEDURES Final Result * Referral to Ophthalmology (11/07/2023) Dahlia Murphy NP OUTPATIENT REFERRAL ORDERABLES F inal Result * Albumin, Random Urine W/O Creatinine (10/16/2022 8:16 AM EDT) Albumin, Urine 36.0 See Note: mg/dL [facility] Comment: Reference Range: Reference Range Not established Verified by repeat analysis. [employer] [facility] Comment: The ADA defines abnormalities in albumin excretion as follows: Albuminuria Category Result (mcg/mg creatinine) Normal to Mildly increased <30 Moderately increased 30-299 Severely increased > OR = 300 The ADA recommends that at least two of three specimens collected within a 3-6 month period be abnormal before considering a patient to be within a diagnostic category. Urine Urine specimen obtained by clean catch procedure / Unknown 10/16/2022 8:16 AM EDT 10/16/2022 8:16 AM EDT Narrative [facility] - 10/16/2022 10:25 PM EDT FASTING:YES FASTING: YES Tania Heck DIRECTOR [employer] LAB URINE ORDERABLES Final Result [facility] [address], [place] [address] [employer] [address] [place] [address] * (ABNORMAL) Lipid Panel, Standard (10/16/2022 8:16 AM EDT) Cholesterol, Total 126 <200 mg/dL [facility] HDL Cholesterol 32(L) > OR = 50 mg/dL [facility] [place] [facility] Triglycerides 236(H) <150 mg/dL [facility] Comment: If a non-fasting specimen was collected, consider repeat triglyceride testing on a fasting specimen if clinically indicated. Mancini et al. J. of Clin. Lipidol. 2015;9:129-169. LDL Cholesterol 65 mg/dL (calc) [facility] Comment: Reference range: <100 Desirable range <100 mg/dL for primary prevention; <70 mg/dL for patients with CHD or diabetic patients with > or = 2 CHD risk factors. LDL-C is now calculated using the Mitch-Neri calculation, which is a validated novel method providing better accuracy than the Friedewald equation in the estimation of LDL-C. Mitch GARNER et al. ARELY. 2013;310(19): 6948-0294 (http://education.Posibl./faq/IRS505) Chol/HDLC Ratio 3.9 <5.0 (calc) [facility] Non-HDL Cholesterol 94 <130 mg/dL (calc) [facility] Comment: For patients with diabetes plus 1 major ASCVD risk factor, treating to a non-HDL-C goal of <100 mg/dL (LDL-C of <70 mg/dL) is considered a therapeutic option. Blood Venous blood specimen / Unknown 10/16/2022 8:16 AM EDT 10/16/2022 8:16 AM EDT Narrative [facility] - 10/16/2022 10:25 PM EDT FASTING:YES FASTING: YES Tania Heck DIRECTOR [employer] LAB BLOOD ORDERABLES Final Result Performing Organization Address [facility]/ZIP Co de Phone Number [facility] [address] [place] [address], [place] [address] [facility] [address] [place] [address] * HM PAP/HPV (08/03/2022) Pap Negative for intraephithelial lesion or malignancy Negative for intraephithelial lesion or malignancy, Epithelial cell abnormality HPV Not Detected Undetected, Indeterminate, Quantitative, Not Detected Historical Provider [facility] [employer]TENANCE Final Result * HEPATITIS C AB W/REFL TO HCV RNA, QN, PCR (03/08/2022 8:59 AM EDT) HEPATITIS C ANTIBODY NON-REACTI VE NON-REACT KENY CONVERTED LEGACY LABS INDEX 0.05 <1.00 CONVERTED LEGACY LABS Comment: HCV antibody was non-reactive. There is no laboratory evidence of HCV infection. In most cases, no further action is required. However, if recent HCV exposure is suspected, a test for HCV RNA (test code 41938) is suggested. For additional information please refer to http://education.Olaworks/faq/FFV54d6 (This link is being provided for informational/ educational purposes only.) 03/08/2022 8:59 AM EDT Tania Heck DIRECTOR [employer] HISTORICAL/NON ORDERABLE L ABS Final Result Performing Organization Address City/[facility]/ZIP Co de Phone Number CONVERTED LEGACY LABS * HIV 1/2 ANTIGEN/ANTIBODY,FOURTH GENERATION W/RFL (03/08/2022 8:59 AM EDT) Pathologist [facility] HIV-1/2 ANTIGEN AND ANTIBODIES, 4TH GENERATION W/ REFLEX NON-REACT KENY NON-REACT KENY CONVERTED LEGACY LABS Comment: HIV-1 antigen and HIV-1/HIV-2 antibodies were not detected. There is no laboratory evidence of HIV infection. PLEASE NOTE: This information has been disclosed to you from records whose confidentiality may be protected by state law. If your state requires such protection, then the state law prohibits you from making any further disclosure of the information without the specific written consent of the person to whom it pertains, or as otherwise permitted by law. A general authorization for the release of medical or other information is NOT sufficient for this purpose. For additional information please refer to http://education.[employer]orks/faq/UEV809 (This link is being provided for informational/ educational purposes only.) The performance of this assay has not been clinically validated in patients less than 2 years old. 03/08/2022 8:59 AM EDT Tania Heck [facility] LAB BLOOD ORDERABLES Final Result CONVERTED LEGACY LABS from Last 3 Months or Most Recently Relevant to Health Maintenance Insurance [facility] - HSN PARTIAL (MEDICAID) Care Teams Power Shovel Operator Relationship Specialty Start Date End Date Dahlia Murphy NP [address] [place] [phone] PCP - General Family Medicine 06/25/23
--- OUTSIDE RECORDS SUMMARY | 2025-03-24 10:32 | XMS_ITS | Encounter Summary ---
Author Organization [employer] Address [address] [facility] [address] [place] [address] Care Team Providers Care Certified Breastfeeding Educator Name Role Phone Dahlia Murphy NP Primary Care Provider [phone] Reason for Visit * Reason Onset Date Comments Nurse Triage 01/21/2025 Encounter Details Date Type Department Care Team ([facility] st Contact Info) Description 01/21/2025 Telephone [facility] [address] [place] [address] Dahlia Murphy NP [address] [place] [address] Nurse Triage Social History Tobacco Use Types Packs/Day Years [...] Recorded Patient Health Questionnaire-2 Score 6 05/09/2024 Internet Access Answer Date Recorded Internet Access [...] encounter Miscellaneous Notes * Telephone Encounter - Yaa Patel RN - 01/21/2025 9:54 AM EDT Triage call with [facility] [place] [id number]. Pt reports + Covid test at home x2 on 01/19/25. Pt didn't keep the tests or take a picture of them. Pt reports continues with fever of 102 and is taking tylenol 650mg every 4 hours with good effect. Pt symptoms are cough, chest congestion, headache , body aches, chills, sinus congestion. Pt reports it hurts when I cough . Neg for sore throat. 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 They are requesting that she return to work , Pt is asking for an excuse. Pt denies difficulty breathing. Pt is speaking without difficulty during this call. Assessment Rn contacted Monique Clark via [employer] regarding possible tele visit with provider in [facility]. Permission given to book an 1120am apt in [facility] Alcala. Pt is advised that tele visit is scheduled but, may be required to come in to [facility] and Pt agrees with this plan. Pt agrees with disposition. Home care is reviewed with Pt who has a 79 yo Mother living in home. Insurance is verified asactive prior to booking. Protocol Used: COVID-19 - Diagnosed or Suspected (Adult) Protocol-Based Disposition: Discuss with PCP and Callback by Nurse Today Positive Triage Questions: * Fever present > 3 days (72 hours) * Continuous (nonstop) coughing interferes with work or school and no improvement using cough treatment per Care Advice * All higher-acuity triage questions were negative Care Advice Discussed: * Reassurance and Education - Positive COVID-19 Lab Test and Mild Symptoms * General Care Advice for COVID-19 Symptoms * Cough Medicines * Humidifier * Coughing Spells * Pain and Fever Medicines * Reasons To Call Back - Fever over 103 F (39.4 C) - Fever lasts over 3 days - Fever returns after being gone for 24 hours - Chest pain or difficulty breathing occurs - Cough or other symptoms last more than 3 weeks - You become worse * COVID-19 - How to Protect Others - When You Are Sick With COVID-19 * COVID-19 - Face Masks for Prevention * Clean Your Hands Often * Telephone Encounter - Dain Kearney - 01/21/2025 8:43 AM EDT Symptoms: COVID-19 Suspected, Fever, Headache Outcome: Schedule an urgent appointment (within 4 hours) or talk to a nurse or provider soon Reason: Started within the past 3 days The caller accepted this outcome. Contact at [phone] documented in this encounter Plan of Treatment Upcoming Encounters Date Type Department Care Team (Late st Contact Info) Description 05/25/2025 4:00 PM EST Office Visit [facility] [address] [place] [address] Dahlia Murphy NP [address] [place] [address] documented as of this encounter Visit Diagnoses Not on filedocumented in this encounter Additional Health Concerns Assessment Noted Time PHQ-9 Depression Total Score: 16 024 11:51 AM EST documented as of this encounter Care Teams Certified Breastfeeding Educator Relationship Specialty Start Date End Date Dahlia Murphy NP [address] [place] [address] PCP - General Family Medicine 06/25/23 documented as of this encounter
--- OUTSIDE RECORDS SUMMARY | 2025-03-24 10:32 | XMS_ITS | Encounter Summary ---
Author Organization [employer] Address [address] [place] [address] [address] [place] [address] Care Team Providers Care Forestry Fire Aide Name Role Phone Nargis Alvarenga MERRY GO ROUND OPERATOR Primary Care Provider [phone] Dahlia Murphy MERRY GO ROUND OPERATOR Primary Care Provider [phone] Reason for Visit * Reason Comments Med Refill Encounter Details Date Type Department Care Team ([facility] st Contact Info) Description 06/04/2023 Refill [facility] [address] [place] [address] Miriam Serrano FNP [address] [place] [address] Hypertriglyceridemia Social History Tobacco Use Types Packs/Day [...] Description 05/25/2025 4:00 PM EST Office Visit [facility] [address] [place] [address] Dahlia Murphy NP [address] [place] [address] documented as of this encounter Visit Diagnoses Diagnosis Hypertriglyceridemia Pure hyperglyceridemia documented in this encounter Additional Health Concerns Assessment Noted Time PHQ-9 Depression Total Score: 11 023 2:37 PM EST documented as of this encounter Care Teams Forestry Fire Aide Relationship Specialty Start Date End Date Nargis Alvarenga NP [address] [place] [address] PCP - General Family Medicine 02/16/23 06/24/23 Dahlia Murphy NP [address] [place] [id number] PCP - General Family Medicine 06/25/23 documented as of this encounter
--- OUTSIDE RECORDS SUMMARY | 2025-03-24 10:32 | XMS_ITS | Encounter Summary ---
Author Organization [employer] Address [address] [place] [address] [address] [place] [address] Care Team Providers Care Piston Maker Name Role Phone Tania Heck Primary Care Provider Nargis Wilkinson HARDENING MACHINE OPERATOR HELPER Primary Care Provider [phone] Dahlia Murphy NP Primary Care Provider [phone] Reason for Visit * Reason Comments Med Refill Encounter Details Date Type Department Care Team (Late st Contact Info) Description 04/19/2022 Refill [facility] [address] [place] [address] Tania Heck FNP Social History Tobacco Use Types Packs/Day Years [...] Description 05/25/2025 4:00 PM EST Office Visit [facility] [address] [place] [address] Dahlia Murphy NP [address] [place] [address] documented as of this encounter Visit Diagnoses Not on filedocumented in this encounter Care Teams Piston Maker Relationship Specialty Start Date End Date Tania Heck FNP PCP - General Family Medicine 03/07/21 02/15/23 Nargis Alvarenga NP [address] [place] [address] PCP - General Family Medicine 02/16/23 06/24/23 Dahlia Murphy NP [address] [place] [address] PCP - General Family Medicine 06/25/23 documented as of this encounter
[2025-03-24 11:55] LABS: Alanine Aminotransferase 25 U/L (0-31); Albumin Level 5.1 g/dL (3.5-5.0); Alkaline Phosphatase 35 U/L (39-117); Anion Gap 14 (12-20); Aspartate Amino Transferase 34 U/L (5-31); Blood Urea Nitrogen 9 mg/dL (9-16); Calcium 9.7 mg/dL (8.4-10.2); Carbon Dioxide 27 mmol/L (22-29); Chloride 104 mmol/L (96-108); Cholesterol 119 mg/dL (<200); Estimated Glomerular Filt Rate > 60; HDL Cholesterol 33 mg/dL (>40); Potassium 4.1 mmol/L (3.3-5.1); Sodium 141 mmol/L (135-145); Total Protein 7.5 g/dL (6.5-8.0); Triglycerides 202 mg/dL (<150)
[2025-03-24 12:18] LABS: Microalbum/Creatinine Ratio Ur 184.6 ug/mg cr (<30)
== END 2025-03-24 09:32 | disposition home or self-care (01) ==
LOC: HO.HHCL 09:31
PROVIDERS: PCP Nurse Practitioner Family; Visit Provider Nurse Practitioner Family
DX: E11.65 Type 2 diabetes mellitus with hyperglycemia (principal)
CPT/HCPCS: 36415; 80053; 80061; 82043; 82570